=== PATIENT | male | born 1970 | race Caucasian/White ===

== ENCOUNTER 2021-03-09 00:18 | Emergency (ER) | payer OTHER, SELFPAY ==
[2021-03-09 00:26] VITALS: BP 170/110; PULSE 100; RESP 20; TEMP 37.2; O2SAT 96; BMI 35.2
--- NOTE | 2021-03-09 00:47 | ED.PSYCH ---
HPI - Psych General Chief Complaint: Psychiatric Symptoms Stated Complaint: psychiatric episode Time Seen by Provider: 03/09/21 00:39 Source: patient Mode of arrival: ambulatory Limitations: no limitations History of Present Illness HPI Narrative: Patient has a bipolar disorder on Depakote Lamictal Atarax and Seroquel. Four days ago patient has sore throat and started on clindamycin patient very nervous and anxious because he thinks clindamycin been metabolized by liver and competing with other medications. At this time patient denies any sore throat or fever MD complaint: anxiety Related Data Allergies Allergy/AdvReac Type Severity Reaction Status Date / Time No Known Allergies Allergy Verified 03/09/21 00:26 [No Known Allergies*] Review of Systems Review of Systems: Constitutional : No Weight loss, No Fever, No Chills ENT/Mouth : No sore throat, No Rhinorrhea Eyes: No Eye Pain, No Swelling Cardiovascular : No Chest Pain, no palpitations Respiratory : No Cough, No Sputum, no shortness of breath Gastrointestinal : no Nausea, No Vomiting, No Diarrhea, No abdominal Pain, no black stools Genitourinary : No Dysuria, No Urinary Frequency Musculoskeletal : No joint pain, No Myalgias, No Joint Swelling Skin : No Skin Lesions, No rash Neuro : No Weakness, No Numbness, No Dizziness, No Headache Psych : +Anxiety/Panic, No Depression Heme/Lymph: No Bruising, No Lymphadenopathy Endocrine : No Polyuria, No Polydipsia All other systems reviewed and are negative REPLACED BY [facility] Social History Social History Advance Directives: No Physical Exam Vital Signs: Vital Signs: Last Vital Signs Temp 99.0 F 03/09/21 00:26 Pulse 100 03/09/21 00:26 Resp 20 03/09/21 00:26 BP 170/110 H 03/09/21 00:26 Pulse Ox 96 03/09/21 00:26 Body Mass Index 35.2 Appearance: Alert. Oriented X3. No acute distress. Anxious Eyes: PERRLA, No Nystagmus ENT: Pharynx normal. Oral Mucosa moist Neck: Normal inspection. Neck supple. CVS: Normal heart rate and rhythm. Pulses normal. Respiratory: No respiratory distress. Equal air entry bilateral, no wheezing/rales/rhonchi Abdomen: Soft and nontender. Bowel sounds are present, no mass palpable, no CVA tenderness Skin: Skin warm and dry. Normal skin color. Normal skin turgor. Extremities: No lower extremity edema. No calf tenderness Neuro: Oriented X 3. No motor deficit. No sensory deficit.No cerebellar signs , cranial nerves II-XII intact MDM - Psych MDM Narrative Medical decision making narrative: Patient with anxiety no sore throat on clinical exam patient reassured to take his medication feels safe to go home does not want any new medication Discharge Plan Discharge Clinical Impression: Anxiety Patient Disposition: Home, Self-Care Instructions: Anxiety (ED) Additional Instructions: Rest at home Stop clindamycin Take medication as prescribed by your psychiatrist
== END 2021-03-09 01:45 | disposition home or self-care (01) ==
LOC: HO.ED 01:10
PROVIDERS: Emergency Provider Internal Medicine
DX: F41.9 Anxiety disorder, unspecified (principal); F31.9 Bipolar disorder, unspecified; Z79.899 Other long term (current) drug therapy
CPT/HCPCS: 99282; 99283

== ENCOUNTER 2021-09-05 11:39 | Emergency (ER) | payer OTHER, SELFPAY ==
[2021-09-05 11:49] VITALS: BP 152/97; PULSE 83; RESP 16; TEMP 37.1; O2SAT 97; BMI 30.5
--- NOTE | 2021-09-05 11:56 | ED_ITS ---
HPI - Psych General Chief Complaint: Psychiatric Symptoms <ISAIAS Nunez - Last Filed: 09/05/21 15:51> Stated Complaint: crisis <ISAIAS Nunez - Last Filed: 09/05/21 15:51> Time Seen by Provider: 09/05/21 11:46 <ISAIAS Nunez - Last Filed: 09/05/21 15:51> Source: patient <ISAIAS Nunez - Last Filed: 09/05/21 15:51> Mode of arrival: ambulatory <ISAIAS Nunez Last Filed: 09/05/21 15:51> Limitations: no limitations <ISAIAS Nunez Last Filed: 09/05/21 15:51> History of Present Illness HPI Narrative: 50 year old male past medical history significant for anxiety, schizoaffective disorder, alcohol abuse disorder bipolar I disorder on Depakote, Lamictal, and atarax presents to the emergency department for co mplaints of depression and suicidal ideation progressively worsening over the past week. According to patient he was recently at [facility] and discharged on August 23, he was admitted initially for an episode of vandana, which patient states was really bad. He states that since his discharge he has been feeling bad about his hospitalization, he states he is embarrassed about the way he acted, and he can not believe some of the things he said ended. He states that for this reason he has been feeling increased depression, and has been feeling suicidal, which is never fell in his life. He states that his plan is to cut his wrists, and bleed to . He has no suicide attempts in the past. He states that he recently had a med change, where they stopped his seroquel, he states this has been making things worse. He also states that his primary psychiatrist changed the times of which he takes his medications. He feels like since he stopped taking Seroquel he has been having obsessive and compulsive behavior, he states that he is unable to transition into different topics. He also mentions that he has been having tactile hallucinations, at times he feels as though there are bugs crawling up his arms. He also mentions difficulty sleeping at night. He denies visual, auditory hallucinations. He states he lives at home with his . He is not homicidal. He denies pain at this time, he states at times when his anxiety is bad he has chest pain, but he is not having any at this time. He offers no other complaints. He denies chest pain, shortness of breath, fevers, chills, recent sick contacts, nausea, vomiting, abdominal pain. He denies alcohol, drug and tobacco use. <ISAIAS Nunez - Last Filed: 09/05/21 15:51> MD complaint: suicidal ideation, feels depressed and anxiety <ISAIAS Nunez Last Filed: 09/05/21 15:51> Duration: constant <ISAIAS Nunez - Last Filed: 09/05/21 15:51> History of same: Yes <ISAIAS Nunez - Last Filed: 09/05/21 15:51> Relieving factors: none <ISAIAS Nunez Last Filed: 09/05/21 15:51> Exacerbating factors: none <ISAIAS Nunez - Last Filed: 09/05/21 15:51> Associated psychiatric symptoms: depression and suicidal ideation <ISAIAS Nunez Last Filed: 09/05/21 15:51> Treatments prior to arrival: none <ISAIAS Nunez Last Filed: 09/05/21 15:51> If self harm: admits thoughts of self harm and has plan (cut wrist and bleed to ) <ISAIAS Nunez Last Filed: 09/05/21 15:51> Related Data Home Medications: Home Medications Medication Instructions Recorded Confirmed divalproex 500 mg tablet,extended 2 tab PO BEDTIME 09/05/21 09/05/21 release 24 hr (Depakote ER) folic acid 1 mg tablet 1 mg PO DAILY 09/05/21 09/05/21 lamotrigine 150 mg tablet 1 tab PO DAILY 09/05/21 09/05/21 (Lamictal) lorazepam 1 mg tablet (Ativan) 1 tab PO TID PRN 09/05/21 09/05/21 quetiapine 300 mg tablet,extended 1 tab PO BEDTIME 09/05/21 09/05/21 release 24 hr (Seroquel XR) thiamine HCl (vitamin B1) 100 mg 100 mg PO DAILY 09/05/21 09/05/21 tablet <ISAIAS Nunez Last Filed: 09/05/21 15:51> Allergies/Adverse Reactions: Allergies Allergy/AdvReac Type Severity Reaction Status Date / Time No Known Allergies Allergy Verified 03/09/21 00:26 [No Known Allergies*] <ISAIAS Nunez Last Filed: 09/05/21 15:51> Review of Systems Review of Systems: Constitutional : No Fever, No Chills ENT/Mouth : No Ear Pain, No Nasal Congestion, No sore throat Eyes: No Eye Pain, No Swelling, No Redness Cardiovascular : No Chest Pain, No SOB Respiratory : No Cough, No Sputum, No Dyspnea Gastrointestinal : No Nausea, No Vomiting, No Diarrhea, No Hematochezia, No Melena Genitourinary : No Dysuria, No Urinary Frequency, No Hematuria Musculoskeletal : No Myalgias Skin : No Skin Lesions, No rash Neuro : No Weakness, No Numbness, No Paresthesias, No Dizziness, No Headache Psych : positive Anxiety, positive Depression, positive SI, No HI Heme/Lymph: No Lymphadenopathy Endocrine : No Polyuria, No Polydipsia All other systems reviewed and are negative <ISAIAS Nunez Last Filed: 09/05/21 15:51> [facility] Past Medical History Attestation statement: The following information was validated with the patient. <ISAIAS Nunez Last Filed: 09/05/21 15:51> Source: old records reviewed and nursing notes reviewed <ISAIAS Nunez Last Filed: 09/05/21 15:51> Social History Social History: Social History Smoked in Last 30 Days: No Use of substances other than those prescribed or required for medical reasons: No Advance Directives: No <ISAIAS Nunez Last Filed: 09/05/21 15:51> Physical Exam Vital Signs: Vital Signs: Last Vital Signs Temp 97.9 F 09/06/21 04:45 Pulse 80 09/06/21 04:45 Resp 18 09/06/21 04:45 BP 128/76 09/06/21 04:45 Pulse Ox 97 09/06/21 04:45 Body Mass Index 30.5 <ISAIAS Nunez - Last Filed: 09/05/21 15:51> Vital Signs: Last Vital Signs Temp 97.9 F 09/06/21 04:45 Pulse 80 09/06/21 04:45 Resp 18 09/06/21 04:45 BP 128/76 09/06/21 04:45 Pulse Ox 97 09/06/21 04:45 Body Mass Index 30.5 <Antonio Palmer MD - Last Filed: 09/05/21 12:25> Vital Signs: Last Vital Signs Temp 97.9 F 09/06/21 04:45 Pulse 80 09/06/21 04:45 Resp 18 09/06/21 04:45 BP 128/76 09/06/21 04:45 Pulse Ox 97 09/06/21 04:45 Body Mass Index 30.5 <ISAIAS Leiva - Last Filed: 09/06/21 09:24> Appearance: Alert. Oriented X3. No acute distress. ? No accessory muscle use Head: Normal external exam. Normocephalic. Atraumatic. ? Eyes: PERRLA. EOMI. Conjunctiva and sclera normal. Eyelids normal. ? ENT: Pharynx normal. Uvula midline. Moist mucous membranes. ? No trismus noted.? No drooling noted.? No muffled voice noted. Neck: ?Soft full range of motion, no JVD CVS: ?Heart regular rate and rhythm no murmurs and rubs Respiratory: ?Breath sounds are clear to auscultation bilaterally. No wheezing or stridor.? No accessory muscle use noted. Abdomen: ?Soft nontender no rebound or guarding positive bowel sounds Skin: Skin warm and dry.? Normal skin color.? Normal skin turgor. No rashes/lesions/lacerations noted. Extremities: No lower extremity edema. ? Extremities exhibit normal range of motion.? Extremities nontender. Neuro: Oriented X 3.? No motor deficit.? No sensory deficit.? Reflexes normal. CN2 -12 intact. <ISAIAS Nunez - Last Filed: 09/05/21 15:51> Course Reevaluation(s) Reevaluation #1: discussed history and plan with the PA <Antonio Palmer MD - Last Filed: 09/05/21 12:25> Time: 12:25 <Antonio Palmer MD - Last Filed: 09/05/21 12:25> Reevaluation #2: CBC reveals no abnormalities. BUN and creatinine and elevated, appears to be patient's baseline, no acute changes. COVID negative. Acetaminophen, salicylates negative. Urine pending. Care team states that BHN on way to evaluate the patient. <ISAIAS Nunez - Last Filed: 09/05/21 15:51> Time: 13:08 <ISAIAS Nunez - Last Filed: 09/05/21 15:51> Reevaluation #3: Urine tox + for cocaine. [facility]N at the bedside. Patient is medically cleared at this time. Physician observation started at 1351.? Patient placed in physician observation because the patient needed more time for BHN evaluation and inpatient placemen t.? At the time observation was started the patient's vitals were stable, patient is alert and oriented and cooperative, Neuro: nonfocal, CV RRR, Lungs clear. <ISAIAS Nunez - Last Filed: 09/05/21 15:51> Time: 13:51 <ISAIAS Nunez - Last Filed: 09/05/21 15:51> Additional Reevaluation(s): 09/06/21922--Physician observation continued. Vital signs are stable. Labs reviewed. Patient remains [facility] inpatient bed search, no complaints overnight <ISAIAS Leiva - Last Filed: 09/06/21 09:24> MDM - Psych MDM Narrative Medical decision making narrative: [id number] 50 year old male pmhx significant for anxiety, schizoaffective disorder and bipolar I disorder on Depakote, Lamictal, and Atarax presents to the emergency department for complaints of depression, suicidal ideation w/ plan to cut wrist, tactile hallucinations, repetitive and compulsive behavior progressively wors ening for a week. He states that his recently seen at [facility] discharged on August 23, 2021. He states that upon discharge they instructed him to stop taking his Seroquel, and he feels like this has not helped him. He states he feels as though he is getting worse. Denies visual and auditory hallucinations. Denies drug, alcohol and tobacco use. Not HI. Mother at the bedside. To know he was at [facility] from August 09 to August 23, 2021 for vandana and psychosis. Upon physical examination patient is well groomed, calm, cooperative speaking in full sentences. He is making sense and able to answer questions appropriately. Lungs are clear to auscultation. S1 and S2 are appreciated for murmurs. Abdomen is soft nontender nondistended. Pupils equal round and reactive to light, free of nystagmus. Extraocular movements intact. Reflexes 2+ equal in bilateral upper and lower extremities. 5/5 strength upper and lower extremities. Cranial nerves 2-12 intact. Plan at this time is to obtain basic labs, urine, covid and ETOH. A care team consult will also be put in. <ISAIAS Nunez - Last Filed: 09/05/21 15:51> Lab Data Result diagrams: : 09/05/21 12:31 09/05/21 12:31 <ISAIAS Nunez - Last Filed: 09/05/21 15:51> Labs: Lab Results 09/05/21 09/05/21 09/05/21 Range/Units 12:30 12:31 12:31 WBC 7.5 (4.8-10.8) X10*3/uL RBC 5.60 (4.60-5.80) X10*6/uL Hgb 16.0 (14.0-18.0) g/dl Hct 50.6 (42.0-52.0) % MCV 90.4 (80.0-98.0) fL MCH 28.6 (27.0-33.0) pg MCHC 31.6 (31.0-36.0) g/dl RDW 13.8 (11.0-16.0) % Plt Count 199 (160-400) X10*3/uL MPV 9.6 (9.4-12.4) fL Immature Gran % (Auto) 0.4 (0.0-0.4) % Neut % (Auto) 57.9 (45-73) % Lymph % (Auto) 31.4 (20-40) % [place] % (Auto) 6.4 (2-11) % Eos % (Auto) 3.2 (0-4) % Baso % (Auto) 0.7 (0-2) % Lymph # (Auto) 2.4 (1.2-4.9) X10*3/uL [place] # (Auto) 0.5 (0.1-1.2) X10*3/uL Eos # (Auto) 0.2 (0.0-0.4) X10*3/uL Baso # (Auto) 0.1 (0.0-0.2) X10*3/uL Abs Immat Gran (auto) 0.03 (0.00-0.03) X10*3/uL Absolute Neuts (auto) 4.4 (2.0-8.3) x10*3/uL Absolute Nucleated RBC 0.000 (0.0-0.012) X10*3/uL Nucleated RBC % (auto) 0.0 (0.0-0.2) /100WBC Sodium 142 (135-145) mmol/L Potassium 4.6 (3.3-5.1) mmol/L Chloride 106 (96-108) mmol/L Carbon Dioxide 29 (22-29) mmol/L Anion Gap 12 (12-20) BUN 18 H (9-16) mg/dL Creatinine 1.69 H (0.5-1.4) mg/dL Estim Creat Clear Calc 60.2 Estimated GFR 43 Random Glucose 92 (60-115) mg/dL Calcium 9.7 (8.4-10.2) mg/dL Total Bilirubin 0.5 (0.0-1.0) mg/dL AST 14 (5-37) U/L ALT 9 (0-40) U/L Alkaline Phosphatase 64 (39-117) U/L Total Protein 7.2 (6.5-8.0) g/dL Albumin 4.3 (3.5-5.0) g/dL Salicylates (15-30) mg/dL Urine Opiates Screen (Not Detect) Urine Fentanyl Screen (Not Detect) Acetaminophen (<30) mcg/mL Ur Barbiturates Screen (Not Detect) Valproic Acid 62.3 (50.0-100.0) mcg/mL Ur Phencyclidine Scrn (Not Detect) Ur Amphetamines Screen (Not Detect) U Benzodiazepines Scrn (Not Detect) Urine Cocaine Screen (Not Detect) U Marijuana (THC) Screen (Not Detect) Ethyl Alcohol < 10 mg/dL COVID-19 ([facility]) (Negative) COVID-19 Clin Com 09/05/21 09/05/21 09/05/21 Range/Units 12:31 12:32 13:11 WBC (4.8-10.8) X10*3/uL RBC (4.60-5.80) X10*6/uL Hgb (14.0-18.0) g/dl Hct (42.0-52.0) % MCV (80.0-98.0) fL MCH (27.0-33.0) pg MCHC (31.0-36.0) g/dl RDW (11.0-16.0) % Plt Count (160-400) X10*3/uL MPV (9.4-12.4) fL Immature Gran % (Auto) (0.0-0.4) % Neut % (Auto) (45-73) % Lymph % (Auto) (20-40) % [place] % (Auto) (2-11) % Eos % (Auto) (0-4) % Baso % (Auto) (0-2) % Lymph # (Auto) (1.2-4.9) X10*3/uL [place] # (Auto) (0.1-1.2) X10*3/uL Eos # (Auto) (0.0-0.4) X10*3/uL Baso # (Auto) (0.0-0.2) X10*3/uL Abs Immat Gran (auto) (0.00-0.03) X10*3/uL Absolute Neuts (auto) (2.0-8.3) x10*3/uL Absolute Nucleated RBC (0.0-0.012) X10*3/uL Nucleated RBC % (auto) (0.0-0.2) /100WBC Sodium (135-145) mmol/L Potassium (3.3-5.1) mmol/L Chloride (96-108) mmol/L Carbon Dioxide (22-29) mmol/L Anion Gap (12-20) BUN (9-16) mg/dL Creatinine (0.5-1.4) mg/dL Estim Creat Clear Calc Estimated GFR Random Glucose (60-115) mg/dL Calcium (8.4-10.2) mg/dL Total Bilirubin (0.0-1.0) mg/dL AST (5-37) U/L ALT (0-40) U/L Alkaline Phosphatase (39-117) U/L Total Protein (6.5-8.0) g/dL Albumin (3.5-5.0) g/dL Salicylates < 5.0 L (15-30) mg/dL Urine Opiates Screen Not Detected (Not Detect) Urine Fentanyl Screen Not Detected (Not Detect) Acetaminophen < 1 (<30) mcg/mL Ur Barbiturates Screen Not Detected (Not Detect) Valproic Acid (50.0-100.0) mcg/mL Ur Phencyclidine Scrn Not Detected (Not Detect) Ur Amphetamines Screen Not Detected (Not Detect) U Benzodiazepines Scrn Not Detected (Not Detect) Urine Cocaine Screen POSITIVE H (Not Detect) U Marijuana (THC) Screen Not Detected (Not Detect) Ethyl Alcohol mg/dL COVID-19 ([facility]) Negative (Negative) COVID-19 Clin Com See Note <ISAIAS Nunez - Last Filed: 09/05/21 15:51> Lab Results 09/05/21 09/05/21 09/05/21 Range/Units 12:30 12:31 12:31 WBC 7.5 (4.8-10.8) X10*3/uL RBC 5.60 (4.60-5.80) X10*6/uL Hgb 16.0 (14.0-18.0) g/dl Hct 50.6 (42.0-52.0) % MCV 90.4 (80.0-98.0) fL MCH 28.6 (27.0-33.0) pg MCHC 31.6 (31.0-36.0) g/dl RDW 13.8 (11.0-16.0) % Plt Count 199 (160-400) X10*3/uL MPV 9.6 (9.4-12.4) fL Immature Gran % (Auto) 0.4 (0.0-0.4) % Neut % (Auto) 57.9 (45-73) % Lymph % (Auto) 31.4 (20-40) % [place] % (Auto) 6.4 (2-11) % Eos % (Auto) 3.2 (0-4) % Baso % (Auto) 0.7 (0-2) % Lymph # (Auto) 2.4 (1.2-4.9) X10*3/uL [place] # (Auto) 0.5 (0.1-1.2) X10*3/uL Eos # (Auto) 0.2 (0.0-0.4) X10*3/uL Baso # (Auto) 0.1 (0.0-0.2) X10*3/uL Abs Immat Gran (auto) 0.03 (0.00-0.03) X10*3/uL Absolute Neuts (auto) 4.4 (2.0-8.3) x10*3/uL Absolute Nucleated RBC 0.000 (0.0-0.012) X10*3/uL Nucleated RBC % (auto) 0.0 (0.0-0.2) /100WBC Sodium 142 (135-145) mmol/L Potassium 4.6 (3.3-5.1) mmol/L Chloride 106 (96-108) mmol/L Carbon Dioxide 29 (22-29) mmol/L Anion Gap 12 (12-20) BUN 18 H (9-16) mg/dL Creatinine 1.69 H (0.5-1.4) mg/dL Estim Creat Clear Calc 60.2 Estimated GFR 43 Random Glucose 92 (60-115) mg/dL Calcium 9.7 (8.4-10.2) mg/dL Total Bilirubin 0.5 (0.0-1.0) mg/dL AST 14 (5-37) U/L ALT 9 (0-40) U/L Alkaline Phosphatase 64 (39-117) U/L Total Protein 7.2 (6.5-8.0) g/dL Albumin 4.3 (3.5-5.0) g/dL Salicylates (15-30) mg/dL Urine Opiates Screen (Not Detect) Urine Fentanyl Screen (Not Detect) Acetaminophen (<30) mcg/mL Ur Barbiturates Screen (Not Detect) Valproic Acid 62.3 (50.0-100.0) mcg/mL Ur Phencyclidine Scrn (Not Detect) Ur Amphetamines Screen (Not Detect) U Benzodiazepines Scrn (Not Detect) Urine Cocaine Screen (Not Detect) U Marijuana (THC) Screen (Not Detect) Ethyl Alcohol < 10 mg/dL COVID-19 ([facility]) (Negative) COVID-19 Clin Com 09/05/21 09/05/21 09/05/21 Range/Units 12:31 12:32 13:11 WBC (4.8-10.8) X10*3/uL RBC (4.60-5.80) X10*6/uL Hgb (14.0-18.0) g/dl Hct (42.0-52.0) % MCV (80.0-98.0) fL MCH (27.0-33.0) pg MCHC (31.0-36.0) g/dl RDW (11.0-16.0) % Plt Count (160-400) X10*3/uL MPV (9.4-12.4) fL Immature Gran % (Auto) (0.0-0.4) % Neut % (Auto) (45-73) % Lymph % (Auto) (20-40) % [place] % (Auto) (2-11) % Eos % (Auto) (0-4) % Baso % (Auto) (0-2) % Lymph # (Auto) (1.2-4.9) X10*3/uL [place] # (Auto) (0.1-1.2) X10*3/uL Eos # (Auto) (0.0-0.4) X10*3/uL Baso # (Auto) (0.0-0.2) X10*3/uL Abs Immat Gran (auto) (0.00-0.03) X10*3/uL Absolute Neuts (auto) (2.0-8.3) x10*3/uL Absolute Nucleated RBC (0.0-0.012) X10*3/uL Nucleated RBC % (auto) (0.0-0.2) /100WBC Sodium (135-145) mmol/L Potassium (3.3-5.1) mmol/L Chloride (96-108) mmol/L Carbon Dioxide (22-29) mmol/L Anion Gap (12-20) BUN (9-16) mg/dL Creatinine (0.5-1.4) mg/dL Estim Creat Clear Calc Estimated GFR Random Glucose (60-115) mg/dL Calcium (8.4-10.2) mg/dL Total Bilirubin (0.0-1.0) mg/dL AST (5-37) U/L ALT (0-40) U/L Alkaline Phosphatase (39-117) U/L Total Protein (6.5-8.0) g/dL Albumin (3.5-5.0) g/dL Salicylates < 5.0 L (15-30) mg/dL Urine Opiates Screen Not Detected (Not Detect) Urine Fentanyl Screen Not Detected (Not Detect) Acetaminophen < 1 (<30) mcg/mL Ur Barbiturates Screen Not Detected (Not Detect) Valproic Acid (50.0-100.0) mcg/mL Ur Phencyclidine Scrn Not Detected (Not Detect) Ur Amphetamines Screen Not Detected (Not Detect) U Benzodiazepines Scrn Not Detected (Not Detect) Urine Cocaine Screen POSITIVE H (Not Detect) U Marijuana (THC) Screen Not Detected (Not Detect) Ethyl Alcohol mg/dL COVID-19 ([facility]) Negative (Negative) COVID-19 Clin Com See Note <Antonio Palmer MD - Last Filed: 09/05/21 12:25> Lab Results 09/05/21 09/05/21 09/05/21 Range/Units 12:30 12:31 12:31 WBC 7.5 (4.8-10.8) X10*3/uL RBC 5.60 (4.60-5.80) X10*6/uL Hgb 16.0 (14.0-18.0) g/dl Hct 50.6 (42.0-52.0) % MCV 90.4 (80.0-98.0) fL MCH 28.6 (27.0-33.0) pg MCHC 31.6 (31.0-36.0) g/dl RDW 13.8 (11.0-16.0) % Plt Count 199 (160-400) X10*3/uL MPV 9.6 (9.4-12.4) fL Immature Gran % (Auto) 0.4 (0.0-0.4) % Neut % (Auto) 57.9 (45-73) % Lymph % (Auto) 31.4 (20-40) % [place] % (Auto) 6.4 (2-11) % Eos % (Auto) 3.2 (0-4) % Baso % (Auto) 0.7 (0-2) % Lymph # (Auto) 2.4 (1.2-4.9) X10*3/uL [place] # (Auto) 0.5 (0.1-1.2) X10*3/uL Eos # (Auto) 0.2 (0.0-0.4) X10*3/uL Baso # (Auto) 0.1 (0.0-0.2) X10*3/uL Abs Immat Gran (auto) 0.03 (0.00-0.03) X10*3/uL Absolute Neuts (auto) 4.4 (2.0-8.3) x10*3/uL Absolute Nucleated RBC 0.000 (0.0-0.012) X10*3/uL Nucleated RBC % (auto) 0.0 (0.0-0.2) /100WBC Sodium 142 (135-145) mmol/L Potassium 4.6 (3.3-5.1) mmol/L Chloride 106 (96-108) mmol/L Carbon Dioxide 29 (22-29) mmol/L Anion Gap 12 (12-20) BUN 18 H (9-16) mg/dL Creatinine 1.69 H (0.5-1.4) mg/dL Estim Creat Clear Calc 60.2 Estimated GFR 43 Random Glucose 92 (60-115) mg/dL Calcium 9.7 (8.4-10.2) mg/dL Total Bilirubin 0.5 (0.0-1.0) mg/dL AST 14 (5-37) U/L ALT 9 (0-40) U/L Alkaline Phosphatase 64 (39-117) U/L Total Protein 7.2 (6.5-8.0) g/dL Albumin 4.3 (3.5-5.0) g/dL Salicylates (15-30) mg/dL Urine Opiates Screen (Not Detect) Urine Fentanyl Screen (Not Detect) Acetaminophen (<30) mcg/mL Ur Barbiturates Screen (Not Detect) Valproic Acid 62.3 (50.0-100.0) mcg/mL Ur Phencyclidine Scrn (Not Detect) Ur Amphetamines Screen (Not Detect) U Benzodiazepines Scrn (Not Detect) Urine Cocaine Screen (Not Detect) U Marijuana (THC) Screen (Not Detect) Ethyl Alcohol < 10 mg/dL COVID-19 ([facility]) (Negative) COVID-19 Clin Com 09/05/21 09/05/21 09/05/21 Range/Units 12:31 12:32 13:11 WBC (4.8-10.8) X10*3/uL RBC (4.60-5.80) X10*6/uL Hgb (14.0-18.0) g/dl Hct (42.0-52.0) % MCV (80.0-98.0) fL MCH (27.0-33.0) pg MCHC (31.0-36.0) g/dl RDW (11.0-16.0) % Plt Count (160-400) X10*3/uL MPV (9.4-12.4) fL Immature Gran % (Auto) (0.0-0.4) % Neut % (Auto) (45-73) % Lymph % (Auto) (20-40) % [place] % (Auto) (2-11) % Eos % (Auto) (0-4) % Baso % (Auto) (0-2) % Lymph # (Auto) (1.2-4.9) X10*3/uL [place] # (Auto) (0.1-1.2) X10*3/uL Eos # (Auto) (0.0-0.4) X10*3/uL Baso # (Auto) (0.0-0.2) X10*3/uL Abs Immat Gran (auto) (0.00-0.03) X10*3/uL Absolute Neuts (auto) (2.0-8.3) x10*3/uL Absolute Nucleated RBC (0.0-0.012) X10*3/uL Nucleated RBC % (auto) (0.0-0.2) /100WBC Sodium (135-145) mmol/L Potassium (3.3-5.1) mmol/L Chloride (96-108) mmol/L Carbon Dioxide (22-29) mmol/L Anion Gap (12-20) BUN (9-16) mg/dL Creatinine (0.5-1.4) mg/dL Estim Creat Clear Calc Estimated GFR Random Glucose (60-115) mg/dL Calcium (8.4-10.2) mg/dL Total Bilirubin (0.0-1.0) mg/dL AST (5-37) U/L ALT (0-40) U/L Alkaline Phosphatase (39-117) U/L Total Protein (6.5-8.0) g/dL Albumin (3.5-5.0) g/dL Salicylates < 5.0 L (15-30) mg/dL Urine Opiates Screen Not Detected (Not Detect) Urine Fentanyl Screen Not Detected (Not Detect) Acetaminophen < 1 (<30) mcg/mL Ur Barbiturates Screen Not Detected (Not Detect) Valproic Acid (50.0-100.0) mcg/mL Ur Phencyclidine Scrn Not Detected (Not Detect) Ur Amphetamines Screen Not Detected (Not Detect) U Benzodiazepines Scrn Not Detected (Not Detect) Urine Cocaine Screen POSITIVE H (Not Detect) U Marijuana (THC) Screen Not Detected (Not Detect) Ethyl Alcohol mg/dL COVID-19 ([facility]) Negative (Negative) COVID-19 Clin Com See Note <ISAIAS Leiva - Last Filed: 09/06/21 09:24> Discharge Plan Discharge Clinical Impression: Depression, Bipolar disorder, Schizoaffective disorder <ISAIAS Nunez - Last Filed: 09/05/21 15:51> Prescriptions: No Action lamotrigine [Lamictal] 150 mg tablet 1 tab PO DAILY RF: 0 thiamine HCl (vitamin B1) 100 mg Tablet 100 mg PO DAILY RF: 0 divalproex [Depakote ER] 500 mg tablet extended release 24 hr 2 tab PO BEDTIME RF: 0 folic acid 1 mg Tablet 1 mg PO DAILY RF: 0 lorazepam [Ativan] 1 mg tablet 1 tab PO TID PRN (Reason: anxiety) RF: 0 quetiapine [Seroquel XR] 300 mg tablet extended release 24 hr 1 tab PO BEDTIME RF: 0 <ISAIAS Nunez - Last Filed: 09/05/21 15:51>
[2021-09-05 12:35] LABS: MANUAL DIFF FLAG NO
[2021-09-05 12:36] LABS: Basophils Absolute Auto 0.1 X10*3/uL (0.0-0.2); Basophils Percent Auto 0.7 % (0-2); Eosinophils Absolute Auto 0.2 X10*3/uL (0.0-0.4); Eosinophils Percent Auto 3.2 % (0-4); Hematocrit 50.6 % (42.0-52.0); Imm Gran Abs Auto 0.03 X10*3/uL (0.00-0.03); Imm Gran Pct Auto 0.4 % (0.0-0.4); Lymphocytes Absolute Auto 2.4 X10*3/uL (1.2-4.9); Lymphocytes Percent Auto 31.4 % (20-40); Mean Corpuscular HGB Conc 31.6 g/dl (31.0-36.0); Mean Corpuscular Hemoglobin 28.6 pg (27.0-33.0); Mean Corpuscular Volume 90.4 fL (80.0-98.0); Mean Platelet Volume 9.6 fL (9.4-12.4); Monocytes Absolute Auto 0.5 X10*3/uL (0.1-1.2); Monocytes Percent Auto 6.4 % (2-11); Neutrophils Absolute Auto 4.4 x10*3/uL (2.0-8.3); Neutrophils Percent Auto 57.9 % (45-73); Platelet Count 199 X10*3/uL (160-400); Red Cell Distribution Width 13.8 % (11.0-16.0); White Blood Count 7.5 X10*3/uL (4.8-10.8)
[2021-09-05 12:49] LABS: Ethanol < 10 mg/dL
[2021-09-05 12:53] LABS: Alanine Aminotransferase 9 U/L (0-40); Albumin Level 4.3 g/dL (3.5-5.0); Alkaline Phosphatase 64 U/L (39-117); Anion Gap 12 (12-20); Aspartate Amino Transferase 14 U/L (5-37); Bilirubin Total 0.5 mg/dL (0.0-1.0); Blood Urea Nitrogen 18 mg/dL (9-16); Calcium 9.7 mg/dL (8.4-10.2); Carbon Dioxide 29 mmol/L (22-29); Chloride 106 mmol/L (96-108); Creatinine Clr Calc Pharmacy 60.2; Estimated Glomerular Filt Rate 43; Glucose Random 92 mg/dL (60-115); Potassium 4.6 mmol/L (3.3-5.1); Sodium 142 mmol/L (135-145); Total Protein 7.2 g/dL (6.5-8.0)
[2021-09-05 12:55] LABS: COVID-19 Test Negative (Negative); IDNOW Serial# 9DD0AD1C
[2021-09-05 12:55] LABS: Salicylate < 5.0 mg/dL (15-30)
[2021-09-05 13:07] LABS: Acetaminophen LAB < 1 mcg/mL (<30)
[2021-09-05 13:31] LABS: Amphetamine Screen Urine Not Detected (Not Detect); Barbiturates, Urine Not Detected (Not Detect); Benzodiazepines Screen Urine Not Detected (Not Detect); Cannabinoid Screen Urine Not Detected (Not Detect); Cocaine Screen Urine POSITIVE (Not Detect); Fentanyl, urine Not Detected (Not Detect); Opiate Screen Urine Not Detected (Not Detect); Phencyclidine Screen Urine Not Detected (Not Detect)
[2021-09-05] MEDS: LORazepam 1 MG TABLET PO (18:16)
[2021-09-05 19:20] LABS: Valproate 62.3 mcg/mL (50.0-100.0)
[2021-09-05] MEDS: Divalproex Sodium ER 500 MG TAB.ER.24H 1000 MG PO (21:23)
[2021-09-05] MEDS: QUEtiapine Fumarate 50 MG TABLET 150 MG PO (21:24)
--- NOTE | 2021-09-06 | ECG_ITS ---
Test Reason : med clearance Blood Pressure : / mmHG Vent. Rate : 072 BPM Atrial Rate : 072 BPM P-R Int : 162 ms QRS Dur : 100 ms QT Int : 378 ms P-R-T Axes : 063 072 037 degrees QTc Int : 413 ms Normal sinus rhythm Normal ECG When compared with ECG of 28-FEB-2020 09:23, Nonspecific T wave abnormality no longer evident in Lateral leads QT has shortened Referred By: Keiry Nuno Electronically Signed By:KYREE ARCINIEGA MD
[2021-09-06 04:45] VITALS: BP 128/76; PULSE 80; RESP 18; TEMP 36.6; O2SAT 97
--- NOTE | 2021-09-06 06:38 | PC.NURSE ---
Patient slept through the night, no distress observed/reported, medication compliant, behavior appropriate, expresses need well, disposition per [facility] is section 12 inpatient bed search, VSS, appetite good, elimination intact, contracted for the safety, will continue to monitor.
--- NOTE | 2021-09-06 07:20 | PC.NURSE ---
patient appears to remain asleep at present, respirations are even and unlabored, patient appears in no distress
[2021-09-06] MEDS: lamoTRIgine 100 MG TABLET 150 MG PO (10:09)
[2021-09-06] MEDS: Folic Acid 1 MG TABLET PO (10:09)
[2021-09-06] MEDS: Thiamine HCL 100 MG TABLET PO (10:09)
[2021-09-06 10:12] VITALS: BP 109/62; PULSE 67; RESP 16; TEMP 37.1; O2SAT 98
--- NOTE | 2021-09-06 14:09 | PC.NURSE ---
client receives visit from .
--- NOTE | 2021-09-06 14:16 | PC.NURSE ---
clients asks us to take another set of vitals as hes feeling discomfort will offer client medicine
--- NOTE | 2021-09-06 18:22 | PC.NURSE ---
SMART SHEET SENT TO [facility]
[2021-09-06] MEDS: QUEtiapine Fumarate 50 MG TABLET 150 MG PO (20:14)
[2021-09-06] MEDS: LORazepam 1 MG TABLET PO (20:14)
[2021-09-06] MEDS: Divalproex Sodium ER 500 MG TAB.ER.24H 1000 MG PO (20:33)
[2021-09-06 21:25] VITALS: BP 123/78; PULSE 62; RESP 14; TEMP 36.8; O2SAT 96
[2021-09-07 04:20] VITALS: BP 126/74; PULSE 60; RESP 16; TEMP 36.7; O2SAT 98
--- NOTE | 2021-09-07 05:05 | PC.NURSE ---
Patient slept little over 4 hours, calm and quiet sitting in hallway socializing with staff member, no distress observed/reported, patient was little unhappy over his lamictal order which was changed at the time discharge from [facility], but later clamed down and reported he is feeling better and asked can he be discharged, patient was informed that since inpatient disposition was decided by [facility], N needs to clear up and patient agreed to wait for [facility] for MSU. Behavior appropriate, medication compliant, VSS, mood pleasant at this time, disposition per [facility] is section 12 inpatient bed search, will continue to monitor.
[2021-09-07] MEDS: QUEtiapine Fumarate 50 MG TABLET 150 MG PO (07:53)
[2021-09-07] MEDS: Folic Acid 1 MG TABLET PO (07:53)
[2021-09-07] MEDS: Thiamine HCL 100 MG TABLET PO (07:54)
[2021-09-07] MEDS: lamoTRIgine 100 MG TABLET 150 MG PO (07:54)
--- NOTE | 2021-09-07 08:55 | PC.NURSE ---
Since this RN arrival at 7am pt has been ambulatory in the department, interactive with staff, patient, able to state needs, taking meds as ordered. Pt states he's feeling much better as compared to yesterday and that he doesn't want to be waiting in ED or even on an inpatient unit through the weekend. He feels well enough to go home and has a therapy appointment for next week. Pt aware that N will conduct an MSU today and that a change in plans can be discussed. His mother called to inform this RN that letting him go would be a mistake . Pt currently resting quietly in room.
--- NOTE | 2021-09-07 12:06 | PC.NURSE ---
patiently awaiting BHN. no complaints at this time.
--- NOTE | 2021-09-07 13:30 | PC.NURSE ---
Rn to Rn pedro [facility] at [place] in [facility]
--- NOTE | 2021-09-07 15:15 | PC.NURSE ---
ambulance booked for 7:30pm to [place]
--- NOTE | 2021-09-07 15:50 | PC.NURSE ---
Resting queitly in bed. Has been calm and cooperative all day. Mother present for visit. Aware of plan for transfer to [place] aprox 7:30pm
[2021-09-07 16:15] VITALS: BP 114/64; PULSE 67; RESP 18; TEMP 36.8; O2SAT 95
== END 2021-09-07 20:17 ==
PROVIDERS: Physician Assistant; Emergency Provider Emergency Medicine; PCP Internal Medicine
DX: F32.A Depression, unspecified (principal); F25.0 Schizoaffective disorder, bipolar type; R45.851 Suicidal ideations; F42.9 Obsessive-compulsive disorder, unspecified; F41.9 Anxiety disorder, unspecified; F10.10 Alcohol abuse, uncomplicated; F14.90 Cocaine use, unspecified, uncomplicated; Z79.899 Other long term (current) drug therapy; Z20.822 Contact with and (suspected) exposure to COVID-19
CPT/HCPCS: 36415; 80053; 80143; 80164; 80179; 80307; 82077; 85025; 87635; 93005; 99285

== ENCOUNTER 2022-08-03 18:47 | Inpatient (IN) | payer MEDICARE, SELFPAY ==
[2022-08-03 19:24] VITALS: BP 176/97; PULSE 93; RESP 16; TEMP 36.8; O2SAT 98; BMI 30.1
[2022-08-03 20:25] LABS: Appearance Urine Clear; Color Urine Yellow; Glucose Urine UA Negative (Negative); Leukocyte Esterase Urine Trace (Negative); Nitrite Urine Negative (Negative); Specific Gravity - Urine 1.015 (1.005-1.025); UMIC TRIGGER UACC YES; Urine Blood Trace (Negative); Urine Ketones Trace mg/dL (Negative); Urine Protein Negative (Neg-Trace)
--- NOTE | 2022-08-03 20:26 | ED_ITS ---
HPI - Psych General Chief Complaint: Psychiatric Symptoms Stated Complaint: Crisis eval Time Seen by Provider: 08/03/22 19:47 Source: patient Mode of arrival: ambulatory Limitations: no limitations History of Present Illness HPI Narrative: This is a 51-year-old male history of bipolar disorder coming in the emergency department from home with his parents were concerned that patient has been acting paranoid at home and with delusions of contamination. According to parents patient has left the multiple times over the past week and has displayed erratic behaviors, so much to the ones that he displays when he is having an acute psychotic episode. Patient tells me he is fine, denies any complaints at this moment but tells me he fluctuates between anxious and depressed. Denies SI, HI. Denies visual, auditory and tactile hallucinations. Denies drugs, alcohol and tobacco. Upon history taking patient, and cooperative with no acute distress. Related Data Home Medications Medication Instructions Recorded Confirmed folic acid 1 mg tablet 1 mg PO DAILY 09/05/21 09/05/21 lorazepam 1 mg tablet (Ativan) 1 tab PO TID PRN anxiety 09/05/21 09/05/21 thiamine HCl (vitamin B1) 100 mg 100 mg PO DAILY 09/05/21 09/05/21 tablet divalproex 500 mg tablet,extended 2 tab PO BEDTIME 08/03/22 08/03/22 release 24 hr (Depakote ER) lamotrigine 200 mg tablet 1 tab PO BID 08/03/22 08/03/22 (Lamictal) lorazepam 1 mg tablet (Ativan) 1 tab PO TID PRN anxiety 08/03/22 08/03/22 quetiapine 300 mg tablet,extended 1 tab PO BEDTIME 08/03/22 08/03/22 release 24 hr (Seroquel XR) Allergies Allergy/AdvReac Type Severity Reaction Status Date / Time haloperidol [From Haldol] AdvReac Vomiting Verified 08/03/22 19:32 Review of Systems Review of Systems: Constitutional : No Weight loss, No Fever, No Chills, No Fatigue, No Malaise ENT/Mouth : No sore throat, No Rhinorrhea Eyes: No Eye Pain, No Swelling, No Redness Cardiovascular : No Chest Pain, No SOB, No Dyspnea on Exertion, No Orthopnea, No Edema, No Palpitations Respiratory : No Cough, No Sputum, No Wheezing Gastrointestinal : No Nausea, No Vomiting, No Diarrhea, No Constipation, No abdominal Pain, No Hematochezia, No Melena Genitourinary : No Dysuria, No Urinary Frequency, No Hematuria, Musculoskeletal : No joint pain, No Myalgias, No Joint Swelling Skin : No Skin Lesions, No rash Neuro : No Weakness, No Numbness, No Dizziness, No Headache Psych : No Anxiety/Panic, No Depression, No SI/HI All other systems reviewed and are negative Yes all other systems are reviewed and are negative [facility] Past Medical History Attestation statement: The following information was validated with the patient. Source: old records reviewed and nursing notes reviewed Social History Social History Advance Directives: No Advance Directives Information Provided: No Physical Exam Vital Signs: Vital Signs: Last Vital Signs Temp 98.2 F 08/03/22 19:24 Pulse 93 08/03/22 19:24 Resp 16 08/03/22 19:24 BP 176/97 H 08/03/22 19:24 Pulse Ox 98 08/03/22 19:24 O2 Del Method 08/03/22 19:24 BMI result Body Mass Index 30.1 vss Appearance: Alert.? Oriented X3.? No acute distress.? Head: Normocephalic, atraumatic, no step-offs or deformities Eyes: Pupils equal, round and reactive to light.? ENT: Pharynx normal.? Neck: Normal inspection.? Neck supple.? CVS: Normal heart rate and rhythm.? Pulses normal.? Respiratory: No respiratory distress.? Breath sounds normal.? Abdomen: Soft and nontender.? Skin: Skin warm and dry.? Normal skin color.? Normal skin turgor.? Extremities: No lower extremity edema.? No calf ttp. 5/5 strength to bilateral upper and lower extremities Neuro: Oriented X 3.? No motor deficit.? No sensory deficit. CN 2-12 intact Course Reevaluation(s) Reevaluation #1: CBC with slight leukocytosis, however likely reactive patient without medical complaints. CBC appears to be at [facility] with elevated BUN and CR, patient t olerating PO fluids and making urine. Urine clean. Tox negative, ethanol negative. Valproic acid low home meds will be reconciled. COVID negative. At this time patient will be placed in physician observation to allow more time to be evaluated by the behavioral health team at time observation was started patient common cooperative no acute distress will continue to monitor. Time: 21:08 MDM - Psych MDM Narrative Medical decision making narrative: 2000 51 year old male's brought into the emergency department for paranoid behaviors at over the past week worsening. Physical exam benign. Likely bipolar disorder versus schizophrenia. Plan at this time is medical clearance and evaluation by the behavioral health team. Medical Records Attestation: I reviewed the patient's medical records. Lab Data Attestation: I reviewed the patient's lab results. Result diagrams: 08/03/22 20:31 08/03/22 20:31 Labs: Lab Results 08/03/22 08/03/22 08/03/22 Range/Units 20:15 20:15 20:15 WBC (4.8-10.8) X10*3/uL RBC (4.60-5.80) X10*6/uL Hgb (14.0-18.0) g/dl Hct (42.0-52.0) % MCV (80.0-98.0) fL MCH (27.0-33.0) pg MCHC (31.0-36.0) g/dl RDW (11.0-16.0) % Plt Count (160-400) X10*3/uL MPV (9.4-12.4) fL Immature Gran % (Auto) (0.0-0.4) % Neut % (Auto) (45-73) % Lymph % (Auto) (20-40) % [place] % (Auto) (2-11) % Eos % (Auto) (0-4) % Baso % (Auto) (0-2) % Lymph # (Auto) (1.2-4.9) X10*3/uL [place] # (Auto) (0.1-1.2) X10*3/uL Eos # (Auto) (0.0-0.4) X10*3/uL Baso # (Auto) (0.0-0.2) X10*3/uL Abs Immat Gran (auto) (0.00-0.03) X10*3/uL Absolute Neuts (auto) (2.0-8.3) x10*3/uL Absolute Nucleated RBC (0.0-0.012) X10*3/uL Nucleated RBC % (auto) (0.0-0.2) /100WBC Sodium (135-145) mmol/L Potassium (3.3-5.1) mmol/L Chloride (96-108) mmol/L Carbon Dioxide (22-29) mmol/L Anion Gap (12-20) BUN (9-16) mg/dL Creatinine (0.5-1.4) mg/dL Estim Creat Clear Calc Estimated GFR Random Glucose (60-115) mg/dL Calcium (8.4-10.2) mg/dL Magnesium (1.6-2.6) mg/dL Total Bilirubin (0.0-1.0) mg/dL AST (5-37) U/L ALT (0-40) U/L Alkaline Phosphatase (39-117) U/L Total Protein (6.5-8.0) g/dL Albumin (3.5-5.0) g/dL Urine Color Yellow Urine Appearance Clear Urine pH 6.0 (5.0-9.0) Ur Specific [place] 1.015 (1.005-1.025) Urine Protein Negative (Neg-Trace) mg/dL Urine Glucose (UA) Negative (Negative) mg/dL Urine Ketones Trace (Negative) mg/dL Urine Blood Trace H (Negative) Urine Nitrite Negative (Negative) Ur Leukocyte Esterase Trace H (Negative) Urine RBC 0-2 (0-2) /HPF Urine WBC 0-5 (0-5) /HPF Ur Squamous Epith Cells 0-2 (0-2) /HPF Urine Bacteria None Seen (None Seen) Hyaline Casts 0-2 (0-2) /LPF Urine Opiates Screen Not Detected (Not Detect) Urine Fentanyl Screen Not Detected (Not Detect) Ur Barbiturates Screen Not Detected (Not Detect) Valproic Acid (50.0-100.0) mcg/mL Ur Phencyclidine Scrn Not Detected (Not Detect) Ur Amphetamines Screen Not Detected (Not Detect) U Benzodiazepines Scrn Not Detected (Not Detect) Urine Cocaine Screen Not Detected (Not Detect) U Marijuana (THC) Screen Not Detected (Not Detect) Ethyl Alcohol mg/dL COVID-19 (MAURICIO) Negative (Negative) COVID-19 Clin Com See Note 08/03/22 08/03/22 08/03/22 Range/Units 20:31 20:31 20:31 WBC 13.3 H (4.8-10.8) X10*3/uL RBC 5.58 (4.60-5.80) X10*6/uL Hgb 16.8 (14.0-18.0) g/dl Hct 50.2 (42.0-52.0) % MCV 90.0 (80.0-98.0) fL MCH 30.1 (27.0-33.0) pg MCHC 33.5 (31.0-36.0) g/dl RDW 13.7 (11.0-16.0) % Plt Count 217 (160-400) X10*3/uL MPV 9.5 (9.4-12.4) fL Immature Gran % (Auto) 0.4 (0.0-0.4) % Neut % (Auto) 76.9 H (45-73) % Lymph % (Auto) 13.0 L (20-40) % [place]gs % (Auto) 8.3 (2-11) % Eos % (Auto) 0.9 (0-4) % Baso % (Auto) 0.5 (0-2) % Lymph # (Auto) 1.7 (1.2-4.9) X10*3/uL [place] # (Auto) 1.1 (0.1-1.2) X10*3/uL Eos # (Auto) 0.1 (0.0-0.4) X10*3/uL Baso # (Auto) 0.1 (0.0-0.2) X10*3/uL Abs Immat Gran (auto) 0.05 H (0.00-0.03) X10*3/uL Absolute Neuts (auto) 10.2 H (2.0-8.3) x10*3/uL Absolute Nucleated RBC 0.000 (0.0-0.012) X10*3/uL Nucleated RBC % (auto) 0.0 (0.0-0.2) /100WBC Sodium 143 (135-145) mmol/L Potassium 5.1 (3.3-5.1) mmol/L Chloride 105 (96-108) mmol/L Carbon Dioxide 25 (22-29) mmol/L Anion Gap 18 (12-20) BUN 25 H (9-16) mg/dL Creatinine 1.63 H (0.5-1.4) mg/dL Estim Creat Clear Calc 61.4 Estimated GFR 45 Random Glucose 96 (60-115) mg/dL Calcium 10.3 H D (8.4-10.2) mg/dL Magnesium 2.1 (1.6-2.6) mg/dL Total Bilirubin 0.8 (0.0-1.0) mg/dL AST 69 H (5-37) U/L ALT 41 H (0-40) U/L Alkaline Phosphatase 68 (39-117) U/L Total Protein 7.9 (6.5-8.0) g/dL Albumin 4.8 (3.5-5.0) g/dL Urine Color Urine Appearance Urine pH (5.0-9.0) Ur Specific [place] (1.005-1.025) Urine Protein (Neg-Trace) mg/dL Urine Glucose (UA) (Negative) mg/dL Urine Ketones (Negative) mg/dL Urine Blood (Negative) Urine Nitrite (Negative) Ur Leukocyte Esterase (Negative) Urine RBC (0-2) /HPF Urine WBC (0-5) /HPF Ur Squamous Epith Cells (0-2) /HPF Urine Bacteria (None Seen) Hyaline Casts (0-2) /LPF Urine Opiates Screen (Not Detect) Urine Fentanyl Screen (Not Detect) Ur Barbiturates Screen (Not Detect) Valproic Acid 22.1 L (50.0-100.0) mcg/mL Ur Phencyclidine Scrn (Not Detect) Ur Amphetamines Screen (Not Detect) U Benzodiazepines Scrn (Not Detect) Urine Cocaine Screen (Not Detect) U Marijuana (THC) Screen (Not Detect) Ethyl Alcohol < 10 mg/dL COVID-19 (MAURICIO) (Negative) COVID-19 Clin Com Critical Care Time Critical Care Time Critical Care Time: No Discharge Plan Discharge Clinical Impression: Bipolar disorder Patient Disposition: Still a Patient Prescriptions: No Action thiamine HCl (vitamin B1) 100 mg Tablet 100 mg PO DAILY divalproex [Depakote ER] 500 mg tablet extended release 24 hr 2 tab PO BEDTIME folic acid 1 mg Tablet 1 mg PO DAILY lorazepam [Ativan] 1 mg tablet 1 tab PO TID PRN (Reason: anxiety) quetiapine [Seroquel XR] 300 mg tablet extended release 24 hr 1 tab PO BEDTIME lamotrigine [Lamictal] 200 mg tablet 1 tab PO BID lamotrigine [Lamictal] 200 mg tablet 1 tab PO BID divalproex [Depakote ER] 500 mg tablet extended release 24 hr 2 tab PO BEDTIME quetiapine [Seroquel XR] 300 mg tablet extended release 24 hr 1 tab PO BEDTIME
[2022-08-03 20:30] LABS: Bacteria Urine None Seen (None Seen); Hyaline Casts Urine 0-2 /LPF (0-2); RBC Urine 0-2 /HPF (0-2); Squamous Epithelial Cell Urine 0-2 /HPF (0-2); WBC Urine 0-5 /HPF (0-5)
[2022-08-03 20:39] LABS: MANUAL DIFF FLAG NO
[2022-08-03 20:40] LABS: COVID-19 Test Negative (Negative)
[2022-08-03 20:42] LABS: Basophils Absolute Auto 0.1 X10*3/uL (0.0-0.2); Basophils Percent Auto 0.5 % (0-2); Eosinophils Absolute Auto 0.1 X10*3/uL (0.0-0.4); Eosinophils Percent Auto 0.9 % (0-4); Hematocrit 50.2 % (42.0-52.0); Hemoglobin 16.8 g/dl (14.0-18.0); Imm Gran Abs Auto 0.05 X10*3/uL (0.00-0.03); Imm Gran Pct Auto 0.4 % (0.0-0.4); Lymphocytes Absolute Auto 1.7 X10*3/uL (1.2-4.9); Mean Corpuscular HGB Conc 33.5 g/dl (31.0-36.0); Mean Corpuscular Hemoglobin 30.1 pg (27.0-33.0); Mean Platelet Volume 9.5 fL (9.4-12.4); Monocytes Absolute Auto 1.1 X10*3/uL (0.1-1.2); Monocytes Percent Auto 8.3 % (2-11); Neutrophils Absolute Auto 10.2 x10*3/uL (2.0-8.3); Neutrophils Percent Auto 76.9 % (45-73); Platelet Count 217 X10*3/uL (160-400); Red Blood Count 5.58 X10*6/uL (4.60-5.80); Red Cell Distribution Width 13.7 % (11.0-16.0); White Blood Count 13.3 X10*3/uL (4.8-10.8)
[2022-08-03 20:44] LABS: Amphetamine Screen Urine Not Detected (Not Detect); Barbiturates, Urine Not Detected (Not Detect); Benzodiazepines Screen Urine Not Detected (Not Detect); Cannabinoid Screen Urine Not Detected (Not Detect); Cocaine Screen Urine Not Detected (Not Detect); Fentanyl, urine Not Detected (Not Detect); Opiate Screen Urine Not Detected (Not Detect); Phencyclidine Screen Urine Not Detected (Not Detect)
[2022-08-03 21:02] LABS: Alanine Aminotransferase 41 U/L (0-40); Albumin Level 4.8 g/dL (3.5-5.0); Alkaline Phosphatase 68 U/L (39-117); Anion Gap 18 (12-20); Aspartate Amino Transferase 69 U/L (5-37); Bilirubin Total 0.8 mg/dL (0.0-1.0); Blood Urea Nitrogen 25 mg/dL (9-16); Calcium 10.3 mg/dL (8.4-10.2); Carbon Dioxide 25 mmol/L (22-29); Chloride 105 mmol/L (96-108); Creatinine Clr Calc Pharmacy 61.4; Estimated Glomerular Filt Rate 45; Ethanol < 10 mg/dL; Glucose Random 96 mg/dL (60-115); Magnesium 2.1 mg/dL (1.6-2.6); Potassium 5.1 mmol/L (3.3-5.1); Sodium 143 mmol/L (135-145); Total Protein 7.9 g/dL (6.5-8.0)
[2022-08-03 21:04] LABS: Valproate 22.1 mcg/mL (50.0-100.0)
[2022-08-03 23:43] VITALS: BP 151/81; PULSE 95; RESP 16; TEMP 37.2; O2SAT 97
--- NOTE | 2022-08-04 | ECG_ITS ---
Test Reason : medical clearance Blood Pressure : / mmHG Vent. Rate : 075 BPM Atrial Rate : 075 BPM P-R Int : 158 ms QRS Dur : 100 ms QT Int : 392 ms P-R-T Axes : 055 043 058 degrees QTc Int : 437 ms Normal sinus rhythm Normal ECG When compared with ECG of 06-SEP-2021 15:39, No significant change was found Referred By: Jc Hartmann Electronically Signed By:HELEN WARD
[2022-08-04] MEDS: Calcium Carbonate 750 MG TAB.CHEW PO (01:28)
[2022-08-04] MEDS: QUEtiapine Fumarate 100 MG TABLET 150 MG PO ×2 (01:28→09:09)
--- NOTE | 2022-08-04 05:31 | PC.NURSE ---
Patient currently in bed appears sleeping, no distress observed/reported, patient struggled to fall sleep, patient engaged well with [facility], disposition is section 12 inpatient bed search, med rec completed and patient is medication compliant, thought content paranoid delusion, patient was observed self dialoguing, VSS, will continue to monitor.
[2022-08-04] MEDS: Folic Acid 1 MG TABLET PO (09:09)
[2022-08-04] MEDS: lamoTRIgine 100 MG TABLET 200 MG PO (09:09)
[2022-08-04] MEDS: Thiamine HCL 100 MG TABLET PO (09:10)
--- NOTE | 2022-08-04 09:51 | PC.NURSE ---
SPOKE WITH PTS FATHER, WITH PERMISSION OF PATIENT. EXPLAINED THAT WE ARE AWAITING ON N TO SEE HIM BEFORE WE KNOW THE ENTIRE PLAN
[2022-08-04 10:50] VITALS: BP 118/72; PULSE 79; TEMP 36.4; O2SAT 97
--- NOTE | 2022-08-04 11:07 | PC.NURSE ---
CALM COOPERATIVE, PARANOID BEHAVIORS WITH MEDICATIONS THIS MORNIG, TOOK WITHOUT ISSUE ONCE ENPLANED FURTHER. PLAN GOTO M3 AT SOMEPOINT TODAY
--- NOTE | 2022-08-04 13:26 | PC.NURSE ---
PT REQUESTING SHOWER ASSISTANCE PROVIDED
[2022-08-04 14:50] VITALS: BP 139/85; PULSE 91; TEMP 36.4; O2SAT 96
[2022-08-04 15:44] LABS: Ammonia 28 umol/L (13-55)
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
[2022-08-05 09:11] LABS: Estimated Average Glucose 100 mg/dL; Hemoglobin A1C 128.8472 umol/L; Hemoglobin A1c % 5.1 %
[2022-08-05 09:32] VITALS: BP 123/70; PULSE 63; RESP 18; TEMP 36.6; O2SAT 99
[2022-08-05 10:01] LABS: Free T4 (Free Thyroxine) 0.96 ng/dL (0.71-1.85); Thyroid Stimulating Hormone 0.26 uIU/mL (0.32-4.0)
[2022-08-05 10:02] LABS: Alanine Aminotransferase 33 U/L (0-40); Albumin Level 4.1 g/dL (3.5-5.0); Alkaline Phosphatase 56 U/L (39-117); Anion Gap 15 (12-20); Aspartate Amino Transferase 40 U/L (5-37); Bilirubin Direct 0.2 mg/dL (0.0-0.5); Bilirubin Total 0.4 mg/dL (0.0-1.0); Blood Urea Nitrogen 28 mg/dL (9-16); Calcium 9.9 mg/dL (8.4-10.2); Carbon Dioxide 28 mmol/L (22-29); Chloride 107 mmol/L (96-108); Cholesterol 195 mg/dL; Creatinine Clr Calc Pharmacy 64.1; Estimated Glomerular Filt Rate 47; Glucose Fasting 94 mg/dL (60-99); HDL Cholesterol 47 mg/dL; LDL Cholesterol Calculated 122 mg/dl; Potassium 5.1 mmol/L (3.3-5.1); Sodium 145 mmol/L (135-145); Total Protein 6.8 g/dL (6.5-8.0); Triglycerides 133 mg/dL
[2022-08-05 10:03] LABS: Folate 12.6 ng/mL (> or = 4.0); Vitamin B12 309 pg/mL (200-900)
--- NOTE | 2022-08-05 10:30 | PC.NURSE ---
Patient offered the flu vaccine and declined.
--- NOTE | 2022-08-05 12:24 | PC.NURSE ---
financial services officer: Valentina Yeung [phone].
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
[2022-08-05 21:25] VITALS: BP 183/99; PULSE 84; TEMP 36.8; O2SAT 97
[2022-08-06] MEDS: Folic Acid 1 MG TABLET PO (09:32)
[2022-08-06] MEDS: Thiamine HCL 100 MG TABLET PO (09:32)
[2022-08-06 09:46] VITALS: BP 133/90; PULSE 74; RESP 16; TEMP 36.7; O2SAT 96
--- NOTE | 2022-08-06 10:24 | HO.PSYCHPN ---
Subjective Subjective Date of Service: 08/06/22 Reason For Visit: greta Interim History: Pt reporting possible UTI sx, culture ordered. Current plan pt discussed is a medicine wash out as he believes he has never been given a chance to self- regulate without medications and allow chemistry values to stabilize. He is pleased with that plan. Reports restful sleep, reasonable appetite and feeling well. Discussed events prior to admission. Medication Compliance: No Side effects from medications: Yes Attending Groups: Yes Review of Systems Acute medical concerns: No Urine culture pending Medical Review of Systems: unchanged Mental Status Exam Mental Status Exam Patient Appearance: Appropriate Patient Orientation: Person, Place, Time and Situation Level of Consciousness: Alert Patient Behavior: Talkative Mood Description: Anxious Affect Description: Anxious Patient Cognition Impaired: No Ability to Follow Directions: Good Speech Pattern: Spontaneous Speech Memory Description: Episodic Impaired Hallucinations: None Delusions: Grandiose and Present Thought Process: Distracted Thought Content: positive for [place], positive for Circumstantial and positive for Tangential Judgement: Fair Diagnostics Vital Signs (24Hr): Vital Signs - 24 hr 08/05/22 21:25 08/06/22 09:46 Temperature 98.3 F 98.1 F Pulse Rate 84 74 Respiratory Rate 16 Blood Pressure 183/99 H 133/90 H Pulse Oximetry 97 96 Oxygen Delivery Method Room Air Room Air BMI result Body Mass Index 30.1 Labs Results: 08/03/22 20:31 08/05/22 07:44 Labs: Laboratory Results - last 48 hr 08/04/22 08/05/22 08/05/22 15:24 07:44 07:44 Sodium 145 Potassium 5.1 Chloride 107 Carbon Dioxide 28 Anion Gap 15 BUN 28 H Creatinine 1.56 H Estim Creat Clear Calc 64.1 Estimated GFR 47 Fasting Glucose 94 Estimat Average Glucose 100 Hemoglobin A1c % 5.1 Calcium 9.9 Total Bilirubin 0.4 Direct Bilirubin 0.2 AST 40 H D ALT 33 Alkaline Phosphatase 56 Ammonia 28 Total Protein 6.8 Albumin 4.1 Triglycerides 133 Cholesterol 195 LDL Cholesterol, Calc 122 HDL Cholesterol 47 Vitamin B12 Folate TSH 0.26 L Free T4 0.96 08/05/22 07:44 Sodium Potassium Chloride Carbon Dioxide Anion Gap BUN Creatinine Estim Creat Clear Calc Estimated GFR Fasting Glucose Estimat Average Glucose Hemoglobin A1c % Calcium Total Bilirubin Direct Bilirubin AST ALT Alkaline Phosphatase Ammonia Total Protein Albumin Triglycerides Cholesterol LDL Cholesterol, Calc HDL Cholesterol Vitamin B12 309 Folate 12.6 TSH Free T4 Medications Medications Current Medications Acetaminophen (Acetaminophen 325 Mg Tablet) 650 mg PO Q6H PRN PRN Reason: Headache/Pain Mild Scale (1-3) Al Hydroxide/Mg Hydroxide (Magnesium Hydrox/Alum Hydrox 30 Ml Oral.Susp) 30 ml PO Q6H PRN PRN Reason: Heartburn/Nausea Divalproex Sodium (Divalproex Sodium Er 500 Mg Tab.Er.24h) 1,500 mg PO BEDTIME [facility] Last Admin: 08/04/22 23:35 Dose: Not Given Folic Acid (Folic Acid 1 Mg Tablet) 1 mg PO DAILY [facility] Last Admin: 08/06/22 09:32 Dose: 1 mg Hydroxyzine HCl (Hydroxyzine Hcl 25 Mg Tablet) 25 mg PO Q6H PRN PRN Reason: Anxiety Lamotrigine (Lamotrigine 100 Mg Tablet) 200 mg PO BID [facility] Last Admin: 08/05/22 11:09 Dose: Not Given Lorazepam (Lorazepam 1 Mg Tablet) 1 mg PO TID PRN PRN Reason: anxiety Magnesium Hydroxide (Milk Of Magnesia 30 Ml Oral.Susp) 30 ml PO DAILY PRN PRN Reason: Constipation Nicotine Polacrilex (Nicotine Polacrilex 2 Mg Gum) 4 mg BUCCAL Q2H PRN PRN Reason: Nicotine Cravings Quetiapine Fumarate (Quetiapine Fumarate 50 Mg Tablet) 150 mg PO BID PRN PRN Reason: agitation or insomnia Thiamine HCl (Thiamine Hcl 100 Mg Tablet) 100 mg PO DAILY [facility] Last Admin: 08/06/22 09:32 Dose: 100 mg Trazodone HCl (Trazodone Hcl 50 Mg Tablet) 50 mg PO BEDTIME PRN PRN Reason: Insomnia Allergies Allergies Allergy/AdvReac Type Severity Reaction Status Date / Time carbamazepine Allergy Unknown Verified 08/04/22 16:45 haloperidol [From Haldol] AdvReac Vomiting Verified 08/03/22 19:32 Assessment & Plan Assessment & Plan (1) Bipolar disorder: Status: Acute Code(s): F31.9 - Bipolar disorder, unspecified (2) Greta: Status: Acute Code(s): F30.9 - Manic episode, unspecified Plan encourage to restart meds. T/C lithium; would require renal involvement. 08/06/22 No interest in medication Observe, Educate, Support in re-starting a treatment plan. I spent minutes with the patient and/or on the patient floor today, greater than?50% of which was spent counseling/coordinating care. Patient educated on: medication risk/benefits and therapeutic strategies Informed Consent: further education needed Reason for contiued inpatient stay Substantial Risk for: rapid decompensation and med/psych decompensation
--- NOTE | 2022-08-06 17:31 | PC.NURSE ---
Jos?s mother requested to speak with Jos?s nurse. His mother wanted to convey the following information to Jos?s care team. Jos participated in the conversation: * Prior to admission to [facility], Jos was taking Lamictal, Depakote, Ativan and Seroquel without good effect. His mother stated he was previously taken off [place] due to kidney issues. Discussed required monitoring of [place] levels, as well as dietary intake requirements including adequate salt and hydration. * Both Jos and his mother want to ensure any new medication is effective. His mother states he needs an antipsychotic; and, Jos stated he is willing to take medication ?after a period of observation? for brain chemical ?balance to be restored with some clean time.? * Jos?s mother reported Jos has a long history of bipolar, with this current episode the first with psychosis. * His mother described Jos getting into legal trouble when psychosis started >1 year ago. At that time, Jos discovered some ?bad stuff? in [place] and was charged with harassment, defamation and stalking for posting about this online. He was ordered to undergo 20-day observation, first by [place], then [place] courts. Both hospitalizations, he was kept on the same medication that was not working. ?They warehoused him.? During the second hospitalization, this episode of psychosis began. * Jos has had bad reactions to Haldol. He states he is going to petition to have this medication removed from the market. ?Notes were taken during the conversation, and Jos and his mother were assured this information would be shared with the care team.
[2022-08-06 17:40] VITALS: BP 148/79; PULSE 89; RESP 16; TEMP 36.6; O2SAT 99
[2022-08-06 19:40] VITALS: BP 138/90; PULSE 93; RESP 16; TEMP 36.6; O2SAT 98
[2022-08-07] MEDS: Thiamine HCL 100 MG TABLET PO (08:39)
[2022-08-07] MEDS: Folic Acid 1 MG TABLET PO (08:39)
[2022-08-07 08:43] VITALS: BP 153/100; PULSE 75; RESP 16; TEMP 36.6; O2SAT 97
[2022-08-07] MEDS: QUEtiapine Fumarate 50 MG TABLET 150 MG PO (09:11)
[2022-08-07 12:14] VITALS: BP 129/81; PULSE 70
--- NOTE | 2022-08-07 16:53 | HO.PSYCHPN ---
Subjective Subjective Date of Service: 08/07/22 Reason For Visit: greta Interim History: Blood pressure elevations reports. Clonidine added. Pt declined. Did accept Seroquel and blood pressure did decrease after that. Napping when seen today. Reports feeling OK , pleased he is washing out of current regime. Team reports poor sleep last night. Review of Systems Acute medical concerns: No Medical Review of Systems: unchanged Mental Status Exam Mental Status Exam Patient Appearance: Appropriate Patient Orientation: Person, Place, Time and Situation Level of Consciousness: Alert Patient Behavior: Talkative Mood Description: Anxious Affect Description: Anxious Patient Cognition Impaired: No Ability to Follow Directions: Good Speech Pattern: Spontaneous Speech Memory Description: Episodic Impaired Hallucinations: None Delusions: Grandiose and Present Thought Process: Distracted Thought Content: positive for [place], positive for Circumstantial and positive for Tangential Judgement: Fair Diagnostics Vital Signs (24Hr): Vital Signs - 24 hr 08/06/22 17:40 08/06/22 19:40 08/07/22 08:43 Temperature 97.8 F 97.8 F 97.8 F Pulse Rate 89 93 75 Respiratory Rate 16 16 16 Blood Pressure 148/79 H 138/90 H 153/100 H Pulse Oximetry 99 98 97 Oxygen Delivery Method Room Air Room Air 08/07/22 12:14 Temperature Pulse Rate 70 Respiratory Rate Blood Pressure 129/81 Pulse Oximetry Oxygen Delivery Method BMI result Body Mass Index 30.1 Labs Results: 08/03/22 20:31 08/05/22 07:44 Medications Medications Current Medications Acetaminophen (Acetaminophen 325 Mg Tablet) 650 mg PO Q6H PRN PRN Reason: Headache/Pain Mild Scale (1-3) Al Hydroxide/Mg Hydroxide (Magnesium Hydrox/Alum Hydrox 30 Ml Oral.Susp) 30 ml PO Q6H PRN PRN Reason: Heartburn/Nausea Clonidine HCl (Clonidine Hcl 0.1 Mg Tablet) 0.1 mg PO BID [facility]; Protocol Last Admin: 08/07/22 10:55 Dose: Not Given Divalproex Sodium (Divalproex Sodium Er 500 Mg Tab.Er.24h) 1,500 mg PO BEDTIME [facility] Last Admin: 08/04/22 23:35 Dose: Not Given Folic Acid (Folic Acid 1 Mg Tablet) 1 mg PO DAILY [facility] Last Admin: 08/07/22 08:39 Dose: 1 mg Hydroxyzine HCl (Hydroxyzine Hcl 25 Mg Tablet) 25 mg PO Q6H PRN PRN Reason: Anxiety Lamotrigine (Lamotrigine 100 Mg Tablet) 200 mg PO BID [facility] Last Admin: 08/05/22 11:09 Dose: Not Given Lorazepam (Lorazepam 1 Mg Tablet) 1 mg PO TID PRN PRN Reason: anxiety Magnesium Hydroxide (Milk Of Magnesia 30 Ml Oral.Susp) 30 ml PO DAILY PRN PRN Reason: Constipation Nicotine Polacrilex (Nicotine Polacrilex 2 Mg Gum) 4 mg BUCCAL Q2H PRN PRN Reason: Nicotine Cravings Quetiapine Fumarate (Quetiapine Fumarate 50 Mg Tablet) 150 mg PO BID PRN PRN Reason: agitation or insomnia Last Admin: 08/07/22 09:11 Dose: 150 mg Thiamine HCl (Thiamine Hcl 100 Mg Tablet) 100 mg PO DAILY [facility] Last Admin: 08/07/22 08:39 Dose: 100 mg Trazodone HCl (Trazodone Hcl 50 Mg Tablet) 50 mg PO BEDTIME PRN PRN Reason: Insomnia Allergies Allergies Allergy/AdvReac Type Severity Reaction Status Date / Time carbamazepine Allergy Unknown Verified 08/04/22 16:45 haloperidol [From Haldol] AdvReac Vomiting Verified 08/03/22 19:32 Assessment & Plan Assessment & Plan (1) Bipolar disorder: Status: Acute Code(s): F31.9 - Bipolar disorder, unspecified (2) Greta: Status: Acute Code(s): F30.9 - Manic episode, unspecified Plan encourage to restart meds. T/C lithium; would require renal involvement. 08/06/22 No interest in medication Observe, Educate, Support in re-starting a treatment plan. 08/07/22 Clonidine 0.1 mg bid for blood pressure mgt and mgt of anxiety-pt refused. Using Seroquel which helped to decrease BP. I spent minutes with the patient and/or on the patient floor today, greater than?50% of which was spent counseling/coordinating care. Informed Consent: further education needed Reason for contiued inpatient stay Substantial Risk for: harm to self, inability to function, rapid decompensation and med/psych decompensation
[2022-08-07 20:41] VITALS: BP 125/72; PULSE 108; TEMP 36.4; O2SAT 96
--- NOTE | 2022-08-07 21:26 | PC.NURSE ---
skin-reports rash btwn thighs ''from walking alot before I came in'' also with dry calloused heels. declined interventions.
[2022-08-08] MEDS: QUEtiapine Fumarate 50 MG TABLET 150 MG PO ×2 (03:02→21:50)
--- NOTE | 2022-08-08 03:42 | PC.NURSE ---
rash-patient allowed for visual assessment of rash he had reported last evening but had not allowed assessment on. approached desk reporting ''burning'' area has raw, beefy appearance.
[2022-08-08 06:00] VITALS: BP 133/78; PULSE 78; RESP 18; TEMP 36.6; O2SAT 99
[2022-08-08] MEDS: Folic Acid 1 MG TABLET PO (09:43)
[2022-08-08] MEDS: Thiamine HCL 100 MG TABLET PO (09:43)
--- NOTE | 2022-08-08 18:10 | P.PNPSI_ITS ---
Subjective Subjective Date of Service: 08/08/22 Reason For Visit: greta Interim History: Reports feeling improved. Finds Seroquel quite helpful ( More than the extended release Seroquel) Reports improved sleep in addition. Review of Systems Acute medical concerns: No Medical Review of Systems: unchanged Mental Status Exam Mental Status Exam Patient Appearance: Appropriate Patient Orientation: Person, Place, Time and Situation Level of Consciousness: Alert Patient Behavior: Talkative Mood Description: Anxious Affect Description: Anxious Patient Cognition Impaired: No Ability to Follow Directions: Good Speech Pattern: Spontaneous Speech Memory Description: Episodic Impaired Hallucinations: None Delusions: Grandiose and Present Thought Process: Distracted Thought Content: positive for [place], positive for Circumstantial and positive for Tangential Judgement: Fair Diagnostics Vital Signs (24Hr): Vital Signs - 24 hr 08/07/22 20:41 08/08/22 06:00 Temperature 97.6 F 97.9 F Pulse Rate 108 H 78 Respiratory Rate 18 Blood Pressure 125/72 133/78 Pulse Oximetry 96 99 Oxygen Delivery Method Room Air Room Air BMI result Body Mass Index 30.1 Labs Results: 08/03/22 20:31 08/05/22 07:44 Medications Medications Current Medications Acetaminophen (Acetaminophen 325 Mg Tablet) 650 mg PO Q6H PRN PRN Reason: Headache/Pain Mild Scale (1-3) Al Hydroxide/Mg Hydroxide (Magnesium Hydrox/Alum Hydrox 30 Ml Oral.Susp) 30 ml PO Q6H PRN PRN Reason: Heartburn/Nausea Clonidine HCl (Clonidine Hcl 0.1 Mg Tablet) 0.1 mg PO BID [facility]; Protocol Last Admin: 08/08/22 09:43 Dose: Not Given Divalproex Sodium (Divalproex Sodium Er 500 Mg Tab.Er.24h) 1,500 mg PO BEDTIME [facility] Last Admin: 08/04/22 23:35 Dose: Not Given Folic Acid (Folic Acid 1 Mg Tablet) 1 mg PO DAILY [facility] Last Admin: 08/08/22 09:43 Dose: 1 mg Hydroxyzine HCl (Hydroxyzine Hcl 25 Mg Tablet) 25 mg PO Q6H PRN PRN Reason: Anxiety Lamotrigine (Lamotrigine 100 Mg Tablet) 200 mg PO BID [facility] Last Admin: 08/05/22 11:09 Dose: Not Given Lorazepam (Lorazepam 1 Mg Tablet) 1 mg PO TID PRN PRN Reason: anxiety Magnesium Hydroxide (Milk Of Magnesia 30 Ml Oral.Susp) 30 ml PO DAILY PRN PRN Reason: Constipation Nicotine Polacrilex (Nicotine Polacrilex 2 Mg Gum) 4 mg BUCCAL Q2H PRN PRN Reason: Nicotine Cravings Quetiapine Fumarate (Quetiapine Fumarate 50 Mg Tablet) 150 mg PO BID PRN PRN Reason: agitation or insomnia Last Admin: 08/08/22 03:02 Dose: 150 mg Thiamine HCl (Thiamine Hcl 100 Mg Tablet) 100 mg PO DAILY [facility] Last Admin: 08/08/22 09:43 Dose: 100 mg Trazodone HCl (Trazodone Hcl 50 Mg Tablet) 50 mg PO BEDTIME PRN PRN Reason: Insomnia Allergies Allergies Allergy/AdvReac Type Severity Reaction Status Date / Time carbamazepine Allergy Unknown Verified 08/04/22 16:45 haloperidol [From Haldol] AdvReac Vomiting Verified 08/03/22 19:32 Assessment & Plan Assessment & Plan (1) Bipolar disorder: Status: Acute Code(s): F31.9 - Bipolar disorder, unspecified (2) Greta: Status: Acute Code(s): F30.9 - Manic episode, unspecified Plan encourage to restart meds. T/C lithium; would require renal involvement. 08/06/22 No interest in medication Observe, Educate, Support in re-starting a treatment plan. 08/07/22 Clonidine 0.1 mg bid for blood pressure mgt and mgt of anxiety-pt refused. Using Seroquel which helped to decrease BP. 08/08/22- Discontinue clonidine. Continue current plan of care. I spent minutes with the patient and/or on the patient floor today, greater than?50% of which was spent counseling/coordinating care. Patient educated on: medication risk/benefits Informed Consent: further education needed Reason for contiued inpatient stay Substantial Risk for: med/psych decompensation
[2022-08-09 09:00] VITALS: BP 125/76; PULSE 83; RESP 18; TEMP 36.2; O2SAT 96
[2022-08-09] MEDS: Thiamine HCL 100 MG TABLET PO (09:14)
[2022-08-09] MEDS: Folic Acid 1 MG TABLET PO (09:14)
--- NOTE | 2022-08-09 14:22 | HO.PSYCHPN ---
Subjective Subjective Date of Service: 08/09/22 Reason For Visit: greta Interim History: calm, cooperative. states he restarted seroquel to help him sleep. he had not been sleeping well and noted his BP increasing, so he decided to take the medication for that purpose and feels it has been quite helpful for that. reports he has a chafing rash on his thighs which he does not believe is fungal and he declines any treatment or further evaluation for it. he is open to renal consultation for opinion on suitability for lithium therapy. he has no other questions or complaints currently. per staff, not attending groups. isolative. clonidine DCed. ativan PRN DCed (pt taking neither). taking seroquel at HS. slept well. Mental Status Exam Mental Status Exam Narrative: adequately dressed and groomed. not talking to himself while in milieu. cooperative and friendly. speech clipped but otherwise nml in rate, amount, loudness, latency. flattened tone. thoughts linear and illogical. affect constricted, hypo-intense, non-labile. no SI/HI/AVH expressed. Diagnostics Vital Signs (24Hr): Vital Signs - 24 hr 08/09/22 09:00 Temperature 97.2 F Pulse Rate 83 Respiratory Rate 18 Blood Pressure 125/76 Pulse Oximetry 96 Oxygen Delivery Method Room Air BMI result Body Mass Index 30.1 Labs Results: 08/03/22 20:31 08/05/22 07:44 Medications Medications Current Medications Acetaminophen (Acetaminophen 325 Mg Tablet) 650 mg PO Q6H PRN PRN Reason: Headache/Pain Mild Scale (1-3) Al Hydroxide/Mg Hydroxide (Magnesium Hydrox/Alum Hydrox 30 Ml Oral.Susp) 30 ml PO Q6H PRN PRN Reason: Heartburn/Nausea Divalproex Sodium (Divalproex Sodium Er 500 Mg Tab.Er.24h) 1,500 mg PO BEDTIME [facility] Last Admin: 08/04/22 23:35 Dose: Not Given Folic Acid (Folic Acid 1 Mg Tablet) 1 mg PO DAILY [facility] Last Admin: 08/09/22 09:14 Dose: 1 mg Hydroxyzine HCl (Hydroxyzine Hcl 25 Mg Tablet) 25 mg PO Q6H PRN PRN Reason: Anxiety Lamotrigine (Lamotrigine 100 Mg Tablet) 200 mg PO BID [facility] Last Admin: 08/05/22 11:09 Dose: Not Given Magnesium Hydroxide (Milk Of Magnesia 30 Ml Oral.Susp) 30 ml PO DAILY PRN PRN Reason: Constipation Nicotine Polacrilex (Nicotine Polacrilex 2 Mg Gum) 4 mg BUCCAL Q2H PRN PRN Reason: Nicotine Cravings Quetiapine Fumarate (Quetiapine Fumarate 50 Mg Tablet) 150 mg PO BID PRN PRN Reason: agitation or insomnia Last Admin: 08/08/22 21:50 Dose: 150 mg Thiamine HCl (Thiamine Hcl 100 Mg Tablet) 100 mg PO DAILY [facility] Last Admin: 08/09/22 09:14 Dose: 100 mg Trazodone HCl (Trazodone Hcl 50 Mg Tablet) 50 mg PO BEDTIME PRN PRN Reason: Insomnia Allergies Allergies Allergy/AdvReac Type Severity Reaction Status Date / Time carbamazepine Allergy Unknown Verified 08/04/22 16:45 haloperidol [From Haldol] AdvReac Vomiting Verified 08/03/22 19:32 Assessment & Plan Assessment & Plan (1) Bipolar disorder: Status: Acute Code(s): F31.9 - Bipolar disorder, unspecified (2) Greta: Status: Acute Code(s): F30.9 - Manic episode, unspecified Plan encourage to restart meds. T/C lithium; would require renal involvement. 08/06/22 No interest in medication Observe, Educate, Support in re-starting a treatment plan. 08/07/22 Clonidine 0.1 mg bid for blood pressure mgt and mgt of anxiety-pt refused. Using Seroquel which helped to decrease BP. 08/08/22- Discontinue clonidine. Continue current plan of care. 08/09: continue current mgmt. ask renal to weigh-in on restarting lithium. I spent ___25___ minutes with the patient and/or on the patient floor today, greater than?50% of which was spent counseling/coordinating care. Reason for contiued inpatient stay Substantial Risk for: inability to function and rapid decompensation
[2022-08-09] MEDS: QUEtiapine Fumarate 50 MG TABLET 150 MG PO (23:42)
[2022-08-10 09:18] VITALS: BP 132/79; PULSE 68; RESP 16; TEMP 36.4; O2SAT 99
[2022-08-10] MEDS: Folic Acid 1 MG TABLET PO (09:23)
[2022-08-10] MEDS: Thiamine HCL 100 MG TABLET PO (09:23)
[2022-08-10 13:37] LABS: COVID-19 Test Negative (Negative)
--- NOTE | 2022-08-10 15:05 | HO.PSYCHPN ---
Subjective Subjective Date of Service: 08/10/22 Reason For Visit: greta Interim History: calm, cooperative. discuss renal MD's opinion with pt. pt acknowledges the position but expresses no interest in restarting lithium. he does agree to schedule seroquel at HS, however. states he is feeling pretty good and slept well. per staff, denying Sx. calm, positive interactions. isolative on eves. stated goal is to be off of all medications. awake until around 0230. did have seroquel 150 at HS. Mental Status Exam Mental Status Exam Narrative: adequately dressed and groomed. not talking to himself while in milieu. cooperative and friendly. speech clipped but otherwise nml in rate, amount, loudness, latency. flattened tone. thoughts linear and illogical. affect constricted, hypo-intense, non-labile. no SI/HI/AVH expressed. Diagnostics Vital Signs (24Hr): Vital Signs - 24 hr 08/10/22 09:18 Temperature 97.6 F Pulse Rate 68 Respiratory Rate 16 Blood Pressure 132/79 Pulse Oximetry 99 Oxygen Delivery Method Room Air BMI result Body Mass Index 30.1 Labs Results: 08/03/22 20:31 08/05/22 07:44 Labs: Laboratory Results - last 48 hr 08/10/22 12:38 COVID-19 ([facility]) Negative COVID-19 Clin Com See Note Medications Medications Current Medications Acetaminophen (Acetaminophen 325 Mg Tablet) 650 mg PO Q6H PRN PRN Reason: Headache/Pain Mild Scale (1-3) Al Hydroxide/Mg Hydroxide (Magnesium Hydrox/Alum Hydrox 30 Ml Oral.Susp) 30 ml PO Q6H PRN PRN Reason: Heartburn/Nausea Divalproex Sodium (Divalproex Sodium Er 500 Mg Tab.Er.24h) 1,500 mg PO BEDTIME [facility] Last Admin: 08/04/22 23:35 Dose: Not Given Folic Acid (Folic Acid 1 Mg Tablet) 1 mg PO DAILY [facility] Last Admin: 08/10/22 09:23 Dose: 1 mg Hydroxyzine HCl (Hydroxyzine Hcl 25 Mg Tablet) 25 mg PO Q6H PRN PRN Reason: Anxiety Lamotrigine (Lamotrigine 100 Mg Tablet) 200 mg PO BID [facility] Last Admin: 08/05/22 11:09 Dose: Not Given Magnesium Hydroxide (Milk Of Magnesia 30 Ml Oral.Susp) 30 ml PO DAILY PRN PRN Reason: Constipation Nicotine Polacrilex (Nicotine Polacrilex 2 Mg Gum) 4 mg BUCCAL Q2H PRN PRN Reason: Nicotine Cravings Quetiapine Fumarate (Quetiapine Fumarate 50 Mg Tablet) 150 mg PO BID PRN PRN Reason: agitation or insomnia Last Admin: 08/09/22 23:42 Dose: 150 mg Quetiapine Fumarate (Quetiapine Fumarate 50 Mg Tablet) 150 mg PO DAILY@2200 [facility] Thiamine HCl (Thiamine Hcl 100 Mg Tablet) 100 mg PO DAILY [facility] Last Admin: 08/10/22 09:23 Dose: 100 mg Trazodone HCl (Trazodone Hcl 50 Mg Tablet) 50 mg PO BEDTIME PRN PRN Reason: Insomnia Allergies Allergies Allergy/AdvReac Type Severity Reaction Status Date / Time carbamazepine Allergy Unknown Verified 08/04/22 16:45 haloperidol [From Haldol] AdvReac Vomiting Verified 08/03/22 19:32 Assessment & Plan Assessment & Plan (1) Bipolar disorder: Status: Acute Code(s): F31.9 - Bipolar disorder, unspecified (2) Greta: Status: Acute Code(s): F30.9 - Manic episode, unspecified Plan encourage to restart meds. T/C lithium; would require renal involvement. 08/06/22 No interest in medication Observe, Educate, Support in re-starting a treatment plan. 08/07/22 Clonidine 0.1 mg bid for blood pressure mgt and mgt of anxiety-pt refused. Using Seroquel which helped to decrease BP. 08/08/22- Discontinue clonidine. Continue current plan of care. 08/09: continue current mgmt. ask renal to weigh-in on restarting lithium. 08/10: per renal, may restart lithium if it is the only option for treatment; close monitoring of renal function in that case mandatory with low threshold for lowering/DCing lithium if renal damage should become evident. pt appears uninterested in this option at present. no change in presentation. seroquel 150 mg scheduled at HS. otherwise continue current mgmt. I spent __35____ minutes with the patient and/or on the patient floor today, greater than?50% of which was spent counseling/coordinating care. Reason for contiued inpatient stay Substantial Risk for: rapid decompensation
--- NOTE | 2022-08-10 15:17 | P.CONNP_ITS ---
History of Present Illness Reason for Consult Consult date: 08/10/22 Reason for consult: CKD Chief Complaint Chief complaint: vandana History of Present Illness Narrative: 51-year-old male history of bipolar disorder coming in the emergency department from home with his parents were concerned that patient has been acting paranoid at home and with delusions of contamination.? According to parents patient has left the multiple times over the past week and has displayed erratic behaviors, so much to the ones that he displays when he is having an acute psychotic episode.? Patient tells me he is fine, denies any complaints at this moment but tells me he fluctuates between anxious and depressed.? Denies SI, HI.? Denies visual, auditory and tactile hallucinations.? Denies drugs, alcohol and tobacco.? Upon history taking patient, and cooperative with no acute distress. 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 This consult was requested for possibly restarting Deseret Review of Systems Constitutional: Denies anorexia and Denies fatigue Eyes: Reports no additional eye complaints Denies dizziness and Denies epistaxis Cardiovascular: Denies Abdominal Distension and Denies diaphoresis Respiratory: Denies chest congestion and Denies hemoptysis Gastrointestinal: Denies change in bowel habits, Denies dyspepsia and Denies vomiting Genitourinary: Denies hematuria, Denies dysuria, Denies urinary frequency, Denies urinary incontinence and Denies urinary urgency Musculoskeletal: Denies numbness Reports Abnormal speech present, Denies dizziness, Denies focal weakness, Denies numbness and Denies paresthesias Endocrine: Denies fatigue PMFSH Social History Social History Household Members: Spouse Household Members Other:: only Housing: Condominium Do you presently have visiting nurse or other home services: No Patient Tobacco Use Status: Never used Tobacco Patient Interested in Nicotine Replacement: No Patient Given Instructions on How to Stop Smoking: No Second Hand Smoke Exposure: No Use of substances other than those prescribed or required for medical reasons: No Currently Displaying Signs/Symptoms of Drug Intoxication Withdrawal: No Have you been hit, kicked, punched, or otherwise hurt by someone within the past year? If so, by whom?: No Do you feel safe in your current relationship?: Yes Is there a partner from a previous relationship who is making you feel unsafe now?: No Are you made to feel afraid or neglected: No ( I'll say no to that. ) Cultural Healthcare Practices: Don't abuse anything. Advance Directives: Yes () Advance Directives Information Provided: No Do you have thoughts of harming others: None Do you have a plan to hurt others: No Plan Recently lost weight without trying: No Eating poorly because of decreased appetite: No Nutrition Risks: No Nutritional Risk Poor oral hygiene: No ( I try to brush them regularly. ) Meds Allergies Allergy/AdvReac Type Severity Reaction Status Date / Time carbamazepine Allergy Unknown Verified 08/04/22 16:45 haloperidol [From Haldol] AdvReac Vomiting Verified 08/03/22 19:32 Active Medications: Current Medications Acetaminophen (Acetaminophen 325 Mg Tablet) 650 mg PO Q6H PRN PRN Reason: Headache/Pain Mild Scale (1-3) Al Hydroxide/Mg Hydroxide (Magnesium Hydrox/Alum Hydrox 30 Ml Oral.Susp) 30 ml PO Q6H PRN PRN Reason: Heartburn/Nausea Divalproex Sodium (Divalproex Sodium Er 500 Mg Tab.Er.24h) 1,500 mg PO BEDTIME [facility] Last Admin: 08/04/22 23:35 Dose: Not Given Folic Acid (Folic Acid 1 Mg Tablet) 1 mg PO DAILY [facility] Last Admin: 08/10/22 09:23 Dose: 1 mg Hydroxyzine HCl (Hydroxyzine Hcl 25 Mg Tablet) 25 mg PO Q6H PRN PRN Reason: Anxiety Lamotrigine (Lamotrigine 100 Mg Tablet) 200 mg PO BID [facility] Last Admin: 08/05/22 11:09 Dose: Not Given Magnesium Hydroxide (Milk Of Magnesia 30 Ml Oral.Susp) 30 ml PO DAILY PRN PRN Reason: Constipation Nicotine Polacrilex (Nicotine Polacrilex 2 Mg Gum) 4 mg BUCCAL Q2H PRN PRN Reason: Nicotine Cravings Quetiapine Fumarate (Quetiapine Fumarate 50 Mg Tablet) 150 mg PO BID PRN PRN Reason: agitation or insomnia Last Admin: 08/09/22 23:42 Dose: 150 mg Quetiapine Fumarate (Quetiapine Fumarate 50 Mg Tablet) 150 mg PO DAILY@2200 [facility] Thiamine HCl (Thiamine Hcl 100 Mg Tablet) 100 mg PO DAILY [facility] Last Admin: 08/10/22 09:23 Dose: 100 mg Trazodone HCl (Trazodone Hcl 50 Mg Tablet) 50 mg PO BEDTIME PRN PRN Reason: Insomnia Home Medications Medication Instructions Recorded Confirmed Last Taken Type folic acid 1 mg tablet 1 mg PO DAILY 09/05/21 08/03/22 Unknown History thiamine HCl (vitamin B1) 100 mg 100 mg PO DAILY 09/05/21 08/03/22 Unknown Hist ory tablet divalproex 500 mg tablet,extended 2 tab PO BEDTIME 08/03/22 08/03/22 Unknown History release 24 hr (Depakote ER) lamotrigine 200 mg tablet 1 tab PO BID 08/03/22 08/03/22 Unknown History (Lamictal) lorazepam 1 mg tablet (Ativan) 1 tab PO TID PRN anxiety 08/03/22 08/03/22 Unknown History quetiapine 300 mg tablet,extended 1 tab PO BEDTIME 08/03/22 08/03/22 Unknown History release 24 hr (Seroquel XR) Physical Exam Vital Signs: Last Vital Signs Temp 97.6 F 08/10/22 09:18 Pulse 68 08/10/22 09:18 Resp 16 08/10/22 09:18 BP 132/79 08/10/22 09:18 Pulse Ox 99 08/10/22 09:18 O2 Del Method 08/10/22 09:18 BMI result Body Mass Index 30.1 Const General: cooperative and anxious Orientation/consciousness: oriented to person and oriented to place HEENT Head: Yes normal to inspection Eyes General: appearance normal, both eyes and all related structures Neck Neck: Yes full ROM and Yes supple Resp Effort & Inspection: normal respiratory effort Auscultation: clear to auscultation bilaterally, no rales and no rhonchi Cardio Jugular venous distension: no JVD Palpation: no palpable S3 and no palpable S4 Heart sounds: no click, no murmurs and no rubs GI Inspection: Yes normal to inspection Palpation (GI): Soft to palpation Percussion: Yes normal to percussion Auscultation: normal bowel sounds Skin General skin exam: no rashes or lesions noted Neuro General: oriented to person and oriented to place Speech: Abnormal speech present Gait exam (Neuro): not ataxic Motor exam (neuro): no asterixis Extrem General: Yes no pedal edema and No calf tenderness Results Lab Results Result Diagrams: 08/03/22 20:31 08/05/22 07:44 Assessment and Plan (1) CKD (chronic kidney disease) stage 3, GFR 30-59 ml/min: Status: Acute Plan Valeria has stage III chronic kidney disease. 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 The renal function has been relatively stable. He has no overt signs or symptoms of diabetes insipidus. Ideally i would prefer to avoid restarting lithium. There is a risk of ongoing renal injury from lithium. However it appears that this is only drug that seems to be working for him. The risks and benefits were explained to the patient and he is willing to restart lithium. At this point , lithium can be restarted cautiously and monitor his serum sodium and serum creatinine closely?at least once a month. If he starts developing polyuria or hypernatremia or if creatinine increases then we should discontinue Deseret and revisit the use of lithium. Procedures Date of Service Date of Service: 08/10/22
[2022-08-10] MEDS: QUEtiapine Fumarate 50 MG TABLET 150 MG PO (22:05)
[2022-08-10 22:09] VITALS: BP 157/95; PULSE 76; TEMP 37.1; O2SAT 96
[2022-08-11 07:00] VITALS: BMI 29.7
[2022-08-11 08:30] VITALS: BP 107/55; PULSE 64; RESP 18; TEMP 36.5; O2SAT 97
[2022-08-11] MEDS: Folic Acid 1 MG TABLET PO (09:45)
[2022-08-11] MEDS: Thiamine HCL 100 MG TABLET PO (09:45)
--- NOTE | 2022-08-11 13:54 | HO.PSYCHPN ---
Subjective Subjective Date of Service: 08/11/22 Reason For Visit: greta Interim History: pt is calm and cooperative. he was observed whispering softly to himself while seated in the sensory room just prior to interview. on being asked what was happening he said he was thinking about some things, namely, conquer fear and anger with resolve, and situations where that was applicable. he gave another example of something on his mind, we don't want any kings, just teachers and examples and principles. MD attempted several times to ask his opinion regarding his medications regimen, to which he replied with confabulation. he agreed to continue with current plan for the time being. per staff, isolative. not attending groups. no anx/dep/AVH. active and appropriate on eves. denies SI/HI/AVH. +RIS. slept interrupted from 0100 to 0700. Mental Status Exam Mental Status Exam Narrative: adequately dressed and groomed. talking softly to himself while in milieu. cooperative and friendly. speech clipped but otherwise nml in rate, amount, loudness, latency. flattened tone. thoughts linear and logical in very superficial conversation, disorganized and confabulatory in more detailed conversation. vague, evasive. affect constricted, hypo-intense, non-labile. no SI/HI/AVH expressed. Diagnostics Vital Signs (24Hr): Vital Signs - 24 hr 08/10/22 22:09 08/11/22 08:30 Temperature 98.7 F 97.7 F Pulse Rate 76 64 Respiratory Rate 18 Blood Pressure 157/95 H 107/55 L Pulse Oximetry 96 97 Oxygen Delivery Method Room Air Room Air BMI result Body Mass Index 29.7 Labs Results: 08/03/22 20:31 08/05/22 07:44 Labs: Laboratory Results - last 48 hr 08/10/22 12:38 COVID-19 ([facility]) Negative COVID-19 Clin Com See Note Medications Medications Current Medications Acetaminophen (Acetaminophen 325 Mg Tablet) 650 mg PO Q6H PRN PRN Reason: Headache/Pain Mild Scale (1-3) Al Hydroxide/Mg Hydroxide (Magnesium Hydrox/Alum Hydrox 30 Ml Oral.Susp) 30 ml PO Q6H PRN PRN Reason: Heartburn/Nausea Divalproex Sodium (Divalproex Sodium Er 500 Mg Tab.Er.24h) 1,500 mg PO BEDTIME [facility] Last Admin: 08/04/22 23:35 Dose: Not Given Folic Acid (Folic Acid 1 Mg Tablet) 1 mg PO DAILY [facility] Last Admin: 08/11/22 09:45 Dose: 1 mg Hydroxyzine HCl (Hydroxyzine Hcl 25 Mg Tablet) 25 mg PO Q6H PRN PRN Reason: Anxiety Lamotrigine (Lamotrigine 100 Mg Tablet) 200 mg PO BID [facility] Last Admin: 08/05/22 11:09 Dose: Not Given Magnesium Hydroxide (Milk Of Magnesia 30 Ml Oral.Susp) 30 ml PO DAILY PRN PRN Reason: Constipation Nicotine Polacrilex (Nicotine Polacrilex 2 Mg Gum) 4 mg BUCCAL Q2H PRN PRN Reason: Nicotine Cravings Quetiapine Fumarate (Quetiapine Fumarate 50 Mg Tablet) 150 mg PO BID PRN PRN Reason: agitation or insomnia Last Admin: 08/09/22 23:42 Dose: 150 mg Quetiapine Fumarate (Quetiapine Fumarate 50 Mg Tablet) 150 mg PO DAILY@2200 [facility] Last Admin: 08/10/22 22:05 Dose: 150 mg Thiamine HCl (Thiamine Hcl 100 Mg Tablet) 100 mg PO DAILY [facility] Last Admin: 08/11/22 09:45 Dose: 100 mg Trazodone HCl (Trazodone Hcl 50 Mg Tablet) 50 mg PO BEDTIME PRN PRN Reason: Insomnia Allergies Allergies Allergy/AdvReac Type Severity Reaction Status Date / Time carbamazepine Allergy Unknown Verified 08/04/22 16:45 haloperidol [From Haldol] AdvReac Vomiting Verified 08/03/22 19:32 Assessment & Plan Assessment & Plan (1) CKD (chronic kidney disease) stage 3, GFR 30-59 ml/min: Status: Acute Code(s): N18.30 - Chronic kidney disease, stage 3 unspecified Assessment and Plan: pt has stage III chronic kidney disease. 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 The renal function has been relatively stable. He has no overt signs or symptoms of diabetes insipidus. Ideally i would prefer to avoid restarting lithium. There is a risk of ongoing renal injury from lithium. However it appears that this is only drug that seems to be working for him. The risks and benefits were explained to the patient and he is willing to restart lithium. At this point , lithium can be restarted cautiously and monitor his serum sodium and serum creatinine closely?at least once a month. If he starts developing polyuria or hypernatremia or if creatinine increases then we should discontinue Ruth and revisit the use of lithium. (2) Greta: Status: Acute Code(s): F30.9 - Manic episode, unspecified Plan encourage to restart meds. T/C lithium; would require renal involvement. 08/06/22 No interest in medication ? Observe, Educate, Support in re-starting a treatment plan. 08/07/22 Clonidine 0.1 mg bid for blood pressure mgt and mgt of anxiety-pt refused. Using Seroquel which helped to decrease BP. 08/08/22- Discontinue clonidine. Continue current plan of care. 08/09: continue current mgmt.? ask renal to weigh-in on restarting lithium. 08/10: per renal, may restart lithium if it is the only option for treatment; close monitoring of renal function in that case mandatory with low threshold for lowering/DCing lithium if renal damage should become evident.? pt appears uninterested in this option at present.? no change in presentation.? seroquel 150 mg scheduled at HS.? otherwise continue current mgmt. 08/11: remains psychotic, poor insight. no interest in changing regimen at present. I spent ___25___ minutes with the patient and/or on the patient floor today, greater than?50% of which was spent counseling/coordinating care. Reason for contiued inpatient stay Substantial Risk for: rapid decompensation
[2022-08-11] MEDS: QUEtiapine Fumarate 50 MG TABLET 150 MG PO (21:59)
[2022-08-11 22:03] VITALS: BP 141/79; PULSE 69; TEMP 36.7; O2SAT 100
[2022-08-12 08:00] VITALS: BP 135/68; PULSE 59; TEMP 36.6; O2SAT 97
[2022-08-12] MEDS: Folic Acid 1 MG TABLET PO (08:45)
[2022-08-12] MEDS: Thiamine HCL 100 MG TABLET PO (08:45)
--- NOTE | 2022-08-12 17:19 | HO.PSYCHPN ---
Subjective Subjective Date of Service: 08/12/22 Reason For Visit: greta Subjective Notes: Yanes Warning Interim History: Spoke with pt's team. I spoke with pt this evening. Says he is feeling really well with meds. Says his sleep is good, sleeping very soundly. Energy is pretty good. He liked chair yoga today, stretching all day. Mood is consistent, not up, not down and he felt happy a couple times. Denies questions or concerns. Medication Compliance: Yes Side effects from medications: No Attending Groups: Yes Review of Systems Acute medical concerns: No Medical Review of Systems: unchanged Mental Status Exam Mental Status Exam Narrative: adequately dressed and groomed.? talking softly to himself while in milieu.? cooperative and friendly.? speech clipped but otherwise nml in rate, amount, loudness, latency.? flattened tone.? thoughts linear and logical in very superficial conversation, disorganized and confabulatory in more detailed conversation.? vague, evasive.? affect constricted, hypo-intense, non-labile.? no SI/HI/AVH expressed. Diagnostics Vital Signs (24Hr): Vital Signs - 24 hr 08/11/22 22:03 08/12/22 08:00 Temperature 98.0 F 97.8 F Pulse Rate 69 59 Blood Pressure 141/79 H 135/68 Pulse Oximetry 100 97 Oxygen Delivery Method Room Air Room Air BMI result Body Mass Index 29.7 Labs Results: 08/03/22 20:31 08/05/22 07:44 Medications Medications Current Medications Acetaminophen (Acetaminophen 325 Mg Tablet) 650 mg PO Q6H PRN PRN Reason: Headache/Pain Mild Scale (1-3) Al Hydroxide/Mg Hydroxide (Magnesium Hydrox/Alum Hydrox 30 Ml Oral.Susp) 30 ml PO Q6H PRN PRN Reason: Heartburn/Nausea Divalproex Sodium (Divalproex Sodium Er 500 Mg Tab.Er.24h) 1,500 mg PO BEDTIME [facility] Last Admin: 08/04/22 23:35 Dose: Not Given Folic Acid (Folic Acid 1 Mg Tablet) 1 mg PO DAILY [facility] Last Admin: 08/12/22 08:45 Dose: 1 mg Hydroxyzine HCl (Hydroxyzine Hcl 25 Mg Tablet) 25 mg PO Q6H PRN PRN Reason: Anxiety Lamotrigine (Lamotrigine 100 Mg Tablet) 200 mg PO BID [facility] Last Admin: 08/05/22 11:09 Dose: Not Given Magnesium Hydroxide (Milk Of Magnesia 30 Ml Oral.Susp) 30 ml PO DAILY PRN PRN Reason: Constipation Nicotine Polacrilex (Nicotine Polacrilex 2 Mg Gum) 4 mg BUCCAL Q2H PRN PRN Reason: Nicotine Cravings Quetiapine Fumarate (Quetiapine Fumarate 50 Mg Tablet) 150 mg PO BID PRN PRN Reason: agitation or insomnia Last Admin: 08/09/22 23:42 Dose: 150 mg Quetiapine Fumarate (Quetiapine Fumarate 50 Mg Tablet) 150 mg PO DAILY@2200 [facility] Last Admin: 08/11/22 21:59 Dose: 150 mg Thiamine HCl (Thiamine Hcl 100 Mg Tablet) 100 mg PO DAILY [facility] Last Admin: 08/12/22 08:45 Dose: 100 mg Trazodone HCl (Trazodone Hcl 50 Mg Tablet) 50 mg PO BEDTIME PRN PRN Reason: Insomnia Allergies Allergies Allergy/AdvReac Type Severity Reaction Status Date / Time carbamazepine Allergy Unknown Verified 08/04/22 16:45 haloperidol [From Haldol] AdvReac Vomiting Verified 08/03/22 19:32 Assessment & Plan Assessment & Plan (1) CKD (chronic kidney disease) stage 3, GFR 30-59 ml/min: Status: Acute Code(s): N18.30 - Chronic kidney disease, stage 3 unspecified Assessment and Plan: pt has stage III chronic kidney disease. 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 The renal function has been relatively stable. He has no overt signs or symptoms of diabetes insipidus. Ideally i would prefer to avoid restarting lithium. There is a risk of ongoing renal injury from lithium. However it appears that this is only drug that seems to be working for him. The risks and benefits were explained to the patient and he is willing to restart lithium. At this point , lithium can be restarted cautiously and monitor his serum sodium and serum creatinine closely?at least once a month. If he starts developing polyuria or hypernatremia or if creatinine increases then we should discontinue [place] and revisit the use of lithium. (2) Greta: Status: Acute Code(s): F30.9 - Manic episode, unspecified Plan encourage to restart meds. T/C lithium; would require renal involvement. 08/06/22 No interest in medication ? Observe, Educate, Support in re-starting a treatment plan. 08/07/22 Clonidine 0.1 mg bid for blood pressure mgt and mgt of anxiety-pt refused. Using Seroquel which helped to decrease BP. 08/08/22- Discontinue clonidine. Continue current plan of care. 08/09: continue current mgmt.? ask renal to weigh-in on restarting lithium. 08/10: per renal, may restart lithium if it is the only option for treatment; close monitoring of renal function in that case mandatory with low threshold for lowering/DCing lithium if renal damage should become evident.? pt appears uninterested in this option at present.? no change in presentation.? seroquel 150 mg scheduled at HS.? otherwise continue current mgmt. 08/11: remains psychotic, poor insight. no interest in changing regimen at present. 08/12: reports benefit on meds, appropriate in conversation I spent minutes with the patient and/or on the patient floor today, greater than?50% of which was spent counseling/coordinating care. Patient educated on: diagnosis, medication risk/benefits and therapeutic strategies Reason for contiued inpatient stay Substantial Risk for: rapid decompensation and med/psych decompensation
[2022-08-12 22:22] VITALS: BP 137/85; PULSE 63; RESP 16; TEMP 36.4; O2SAT 98
[2022-08-12] MEDS: QUEtiapine Fumarate 50 MG TABLET 150 MG PO (22:25)
[2022-08-13 08:30] VITALS: BP 137/78; PULSE 65; RESP 16; TEMP 37; O2SAT 99
[2022-08-13] MEDS: Folic Acid 1 MG TABLET PO (09:19)
[2022-08-13] MEDS: Thiamine HCL 100 MG TABLET PO (09:19)
--- NOTE | 2022-08-13 14:46 | P.PNPSI_ITS ---
Subjective Subjective Date of Service: 08/13/22 Reason For Visit: greta Interim History: calm, coooperative. no change in presentation. taking seroquel at , claiming to sleep well. discuss possibility of early next week discharge. per staff, denies Sx. attending groups. sleeping well, eating well. no behavioral issues. Mental Status Exam Mental Status Exam Narrative: adequately dressed and groomed.? talking softly to himself when alone.? cooperative and friendly.? speech clipped but otherwise nml in rate, amount, loudness, latency.? flattened tone.? thoughts linear and logical in superficial conversation.? vague, evasive.? affect constricted, hypo-intense, non-labile.? no SI/HI/AVH expressed. Diagnostics Vital Signs (24Hr): Vital Signs - 24 hr 08/12/22 22:22 08/13/22 08:30 Temperature 97.6 F 98.6 F Pulse Rate 63 65 Respiratory Rate 16 16 Blood Pressure 137/85 137/78 Pulse Oximetry 98 99 Oxygen Delivery Method Room Air Room Air BMI result Body Mass Index 29.7 Labs Results: 08/03/22 20:31 08/05/22 07:44 Medications Medications Current Medications Acetaminophen (Acetaminophen 325 Mg Tablet) 650 mg PO Q6H PRN PRN Reason: Headache/Pain Mild Scale (1-3) Al Hydroxide/Mg Hydroxide (Magnesium Hydrox/Alum Hydrox 30 Ml Oral.Susp) 30 ml PO Q6H PRN PRN Reason: Heartburn/Nausea Divalproex Sodium (Divalproex Sodium Er 500 Mg Tab.Er.24h) 1,500 mg PO BEDTIME [facility] Last Admin: 08/04/22 23:35 Dose: Not Given Folic Acid (Folic Acid 1 Mg Tablet) 1 mg PO DAILY [facility] Last Admin: 08/13/22 09:19 Dose: 1 mg Hydroxyzine HCl (Hydroxyzine Hcl 25 Mg Tablet) 25 mg PO Q6H PRN PRN Reason: Anxiety Lamotrigine (Lamotrigine 100 Mg Tablet) 200 mg PO BID [facility] Last Admin: 08/05/22 11:09 Dose: Not Given Magnesium Hydroxide (Milk Of Magnesia 30 Ml Oral.Susp) 30 ml PO DAILY PRN PRN Reason: Constipation Nicotine Polacrilex (Nicotine Polacrilex 2 Mg Gum) 4 mg BUCCAL Q2H PRN PRN Reason: Nicotine Cravings Quetiapine Fumarate (Quetiapine Fumarate 50 Mg Tablet) 150 mg PO BID PRN PRN Reason: agitation or insomnia Last Admin: 08/09/22 23:42 Dose: 150 mg Quetiapine Fumarate (Quetiapine Fumarate 50 Mg Tablet) 150 mg PO DAILY@2200 [facility] Last Admin: 08/12/22 22:25 Dose: 150 mg Thiamine HCl (Thiamine Hcl 100 Mg Tablet) 100 mg PO DAILY [facility] Last Admin: 08/13/22 09:19 Dose: 100 mg Trazodone HCl (Trazodone Hcl 50 Mg Tablet) 50 mg PO BEDTIME PRN PRN Reason: Insomnia Allergies Allergies Allergy/AdvReac Type Severity Reaction Status Date / Time carbamazepine Allergy Unknown Verified 08/04/22 16:45 haloperidol [From Haldol] AdvReac Vomiting Verified 08/03/22 19:32 Assessment & Plan Assessment & Plan (1) CKD (chronic kidney disease) stage 3, GFR 30-59 ml/min: Status: Acute Code(s): N18.30 - Chronic kidney disease, stage 3 unspecified Assessment and Plan: pt has stage III chronic kidney disease. 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 The renal function has been relatively stable. He has no overt signs or symptoms of diabetes insipidus. Ideally i would prefer to avoid restarting lithium. There is a risk of ongoing renal injury from lithium. However it appears that this is only drug that seems to be working for him. The risks and benefits were explained to the patient and he is willing to restart lithium. At this point , lithium can be restarted cautiously and monitor his serum sodium and serum creatinine closely?at least once a month. If he starts developing polyuria or hypernatremia or if creatinine increases then we should discontinue [place] and revisit the use of lithium. (2) Greta: Status: Acute Code(s): F30.9 - Manic episode, unspecified Plan encourage to restart meds. T/C lithium; would require renal involvement. 08/06/22 No interest in medication ? Observe, Educate, Support in re-starting a treatment plan. 08/07/22 Clonidine 0.1 mg bid for blood pressure mgt and mgt of anxiety-pt refused. Using Seroquel which helped to decrease BP. 08/08/22- Discontinue clonidine. Continue current plan of care. 08/09: continue current mgmt.? ask renal to weigh-in on restarting lithium. 08/10: per renal, may restart lithium if it is the only option for treatment; close monitoring of renal function in that case mandatory with low threshold for lowering/DCing lithium if renal damage should become evident.? pt appears uninterested in this option at present.? no change in presentation.? seroquel 150 mg scheduled at HS.? otherwise continue current mgmt. 08/11: remains psychotic, poor insight. no interest in changing regimen at present. 08/12: reports benefit on meds, appropriate in conversation 08/13: stable presentation. no behavioral concerns. I spent __15____ minutes with the patient and/or on the patient floor today, greater than?50% of which was spent counseling/coordinating care. Reason for contiued inpatient stay Substantial Risk for: inability to function and rapid decompensation
[2022-08-13 23:25] VITALS: BP 192/99; PULSE 63; RESP 18; TEMP 36.1; O2SAT 99
[2022-08-13] MEDS: QUEtiapine Fumarate 50 MG TABLET 150 MG PO (23:28)
[2022-08-14 09:48] VITALS: BP 149/101; PULSE 84; RESP 17; TEMP 36.7; O2SAT 97
[2022-08-14] MEDS: Thiamine HCL 100 MG TABLET PO (09:49)
[2022-08-14] MEDS: Folic Acid 1 MG TABLET PO (09:49)
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
[2022-08-14 21:00] VITALS: BP 142/75; PULSE 82; RESP 18; TEMP 36.7; O2SAT 98
[2022-08-14] MEDS: QUEtiapine Fumarate 50 MG TABLET 150 MG PO (22:56)
[2022-08-15 08:22] VITALS: BP 121/80; PULSE 77; RESP 15; TEMP 36.4; O2SAT 99
[2022-08-15] MEDS: Folic Acid 1 MG TABLET PO (08:47)
[2022-08-15] MEDS: Thiamine HCL 100 MG TABLET PO (08:47)
--- NOTE | 2022-08-15 15:19 | HO.PSYCHPN ---
Subjective Subjective Date of Service: 08/15/22 Reason For Visit: greta Interim History: calm, cooperative. seen in sensory room. c/o sciatica acting up again recently. not feeling ready to go home. states there is high anxiety associated with his being there. states it's a tough living situation. he says, i just don't like it there. , after asking several questions trying to get pt to explain, asks directly, and pt states, i don't want to open that up. he does mention the bedrooms are underground, like a crypt, and that once for several days he was too anxious to even leave his bed there. states he is sleeping well, through the night. Mental Status Exam Mental Status Exam Narrative: adequately dressed and groomed.? cooperative and friendly.? speech clipped but otherwise nml in rate, amount, loudness, latency.? flattened tone.? thoughts tangential, vague, evasive. affect constricted, hypo-intense, non-labile.? no SI/HI/AVH expressed. Diagnostics Vital Signs (24Hr): Vital Signs - 24 hr 08/14/22 21:00 08/15/22 08:22 Temperature 98.1 F 97.5 F Pulse Rate 82 77 Respiratory Rate 18 15 Blood Pressure 142/75 H 121/80 Pulse Oximetry 98 99 Oxygen Delivery Method Room Air Room Air BMI result Body Mass Index 29.7 Labs Results: 08/03/22 20:31 08/05/22 07:44 Medications Medications Current Medications Acetaminophen (Acetaminophen 325 Mg Tablet) 650 mg PO Q6H PRN PRN Reason: Headache/Pain Mild Scale (1-3) Al Hydroxide/Mg Hydroxide (Magnesium Hydrox/Alum Hydrox 30 Ml Oral.Susp) 30 ml PO Q6H PRN PRN Reason: Heartburn/Nausea Divalproex Sodium (Divalproex Sodium Er 500 Mg Tab.Er.24h) 1,500 mg PO BEDTIME [facility] Last Admin: 08/04/22 23:35 Dose: Not Given Folic Acid (Folic Acid 1 Mg Tablet) 1 mg PO DAILY [facility] Last Admin: 08/15/22 08:47 Dose: 1 mg Hydroxyzine HCl (Hydroxyzine Hcl 25 Mg Tablet) 25 mg PO Q6H PRN PRN Reason: Anxiety Lamotrigine (Lamotrigine 100 Mg Tablet) 200 mg PO BID [facility] Last Admin: 08/05/22 11:09 Dose: Not Given Magnesium Hydroxide (Milk Of Magnesia 30 Ml Oral.Susp) 30 ml PO DAILY PRN PRN Reason: Constipation Nicotine Polacrilex (Nicotine Polacrilex 2 Mg Gum) 4 mg BUCCAL Q2H PRN PRN Reason: Nicotine Cravings Quetiapine Fumarate (Quetiapine Fumarate 50 Mg Tablet) 150 mg PO BID PRN PRN Reason: agitation or insomnia Last Admin: 08/09/22 23:42 Dose: 150 mg Quetiapine Fumarate (Quetiapine Fumarate 50 Mg Tablet) 150 mg PO DAILY@2200 [facility] Last Admin: 08/14/22 22:56 Dose: 150 mg Thiamine HCl (Thiamine Hcl 100 Mg Tablet) 100 mg PO DAILY [facility] Last Admin: 08/15/22 08:47 Dose: 100 mg Trazodone HCl (Trazodone Hcl 50 Mg Tablet) 50 mg PO BEDTIME PRN PRN Reason: Insomnia Allergies Allergies Allergy/AdvReac Type Severity Reaction Status Date / Time carbamazepine Allergy Unknown Verified 08/04/22 16:45 haloperidol [From Haldol] AdvReac Vomiting Verified 08/03/22 19:32 Assessment & Plan Assessment & Plan (1) CKD (chronic kidney disease) stage 3, GFR 30-59 ml/min: Status: Acute Code(s): N18.30 - Chronic kidney disease, stage 3 unspecified Assessment and Plan: pt has stage III chronic kidney disease. 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 The renal function has been relatively stable. He has no overt signs or symptoms of diabetes insipidus. Ideally i would prefer to avoid restarting lithium. There is a risk of ongoing renal injury from lithium. However it appears that this is only drug that seems to be working for him. The risks and benefits were explained to the patient and he is willing to restart lithium. At this point , lithium can be restarted cautiously and monitor his serum sodium and serum creatinine closely?at least once a month. If he starts developing polyuria or hypernatremia or if creatinine increases then we should discontinue [place] and revisit the use of lithium. (2) Greta: Status: Acute Code(s): F30.9 - Manic episode, unspecified Plan encourage to restart meds. T/C lithium; would require renal involvement. 08/06/22 No interest in medication ? Observe, Educate, Support in re-starting a treatment plan. 08/07/22 Clonidine 0.1 mg bid for blood pressure mgt and mgt of anxiety-pt refused. Using Seroquel which helped to decrease BP. 08/08/22- Discontinue clonidine. Continue current plan of care. 08/09: continue current mgmt.? ask renal to weigh-in on restarting lithium. 08/10: per renal, may restart lithium if it is the only option for treatment; close monitoring of renal function in that case mandatory with low threshold for lowering/DCing lithium if renal damage should become evident.? pt appears uninterested in this option at present.? no change in presentation.? seroquel 150 mg scheduled at HS.? otherwise continue current mgmt. 08/11: remains psychotic, poor insight. no interest in changing regimen at present. 08/12: reports benefit on meds, appropriate in conversation 08/13: stable presentation. no behavioral concerns. 08/14: quietly psychotic, but behavior in control. 08/15: stable presentation, as yesterday. I spent ___25___ minutes with the patient and/or on the patient floor today, greater than?50% of which was spent counseling/coordinating care. Reason for contiued inpatient stay Substantial Risk for: inability to function and rapid decompensation
[2022-08-15 20:19] VITALS: BP 166/82; PULSE 89; RESP 18; TEMP 36.8; O2SAT 97
[2022-08-15] MEDS: QUEtiapine Fumarate 50 MG TABLET 150 MG PO (22:22)
[2022-08-16 08:43] VITALS: BP 124/89; PULSE 87; RESP 18; TEMP 36.3; O2SAT 97
[2022-08-16] MEDS: Folic Acid 1 MG TABLET PO (08:51)
[2022-08-16] MEDS: Thiamine HCL 100 MG TABLET PO (08:51)
[2022-08-16 11:18] LABS: COVID-19 Test Negative (Negative); IDNOW Serial# 08D9AD1C
--- NOTE | 2022-08-16 14:11 | HO.PSYCHPN ---
Subjective Subjective Date of Service: 08/16/22 Reason For Visit: greta Interim History: calm, cooperative. c/o back spasm last night. states it occurred acutely, then resolved, and he was able to sleep through the night. declined any flexeril, but allowed it to be Rxed PRN. states he is feeling relaxed, calmer, but that the talk of going home had caused him a lot of anxiety yesterday. agrees to begin turning his thoughts toward discharge. per staff, c/o anxiety. 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 slept well, eating well. denies depression. guarded. denies AVH. safe. visible, attending groups, flat preoccupied. some inappropriate sexualized behavior such as asking female staff very personal questions, invading personal space of female staff and on at least one occasion touching, lying on his back in a nook in the milieu thrusting his hips into the air. Mental Status Exam Mental Status Exam Narrative: adequately dressed and groomed.? cooperative and friendly.? speech nml in rate, amount, loudness, latency.? flattened tone.? thoughts vague, evasive. affect constricted, hypo-intense, non-labile.? no SI/HI/AVH expressed. Diagnostics Vital Signs (24Hr): Vital Signs - 24 hr 08/15/22 20:19 08/16/22 08:43 Temperature 98.3 F 97.4 F Pulse Rate 89 87 Respiratory Rate 18 18 Blood Pressure 166/82 H 124/89 Pulse Oximetry 97 97 Oxygen Delivery Method Room Air Room Air BMI result Body Mass Index 29.7 Labs Results: 08/03/22 20:31 08/05/22 07:44 Labs: Laboratory Results - last 48 hr 08/16/22 10:43 COVID-19 ([facility]) Negative COVID-19 Clin Com See Note Medications Medications Current Medications Acetaminophen (Acetaminophen 325 Mg Tablet) 650 mg PO Q6H PRN PRN Reason: Headache/Pain Mild Scale (1-3) Al Hydroxide/Mg Hydroxide (Magnesium Hydrox/Alum Hydrox 30 Ml Oral.Susp) 30 ml PO Q6H PRN PRN Reason: Heartburn/Nausea Cyclobenzaprine HCl (Cyclobenzaprine Hcl 10 Mg Tablet) 10 mg PO TID PRN PRN Reason: back spasm Divalproex Sodium (Divalproex Sodium Er 500 Mg Tab.Er.24h) 1,500 mg PO BEDTIME [facility] Last Admin: 08/04/22 23:35 Dose: Not Given Folic Acid (Folic Acid 1 Mg Tablet) 1 mg PO DAILY [facility] Last Admin: 08/16/22 08:51 Dose: 1 mg Hydroxyzine HCl (Hydroxyzine Hcl 25 Mg Tablet) 25 mg PO Q6H PRN PRN Reason: Anxiety Lamotrigine (Lamotrigine 100 Mg Tablet) 200 mg PO BID [facility] Last Admin: 08/05/22 11:09 Dose: Not Given Magnesium Hydroxide (Milk Of Magnesia 30 Ml Oral.Susp) 30 ml PO DAILY PRN PRN Reason: Constipation Nicotine Polacrilex (Nicotine Polacrilex 2 Mg Gum) 4 mg BUCCAL Q2H PRN PRN Reason: Nicotine Cravings Quetiapine Fumarate (Quetiapine Fumarate 50 Mg Tablet) 150 mg PO BID PRN PRN Reason: agitation or insomnia Last Admin: 08/09/22 23:42 Dose: 150 mg Quetiapine Fumarate (Quetiapine Fumarate 50 Mg Tablet) 150 mg PO DAILY@2200 [facility] Last Admin: 08/15/22 22:22 Dose: 150 mg Thiamine HCl (Thiamine Hcl 100 Mg Tablet) 100 mg PO DAILY [facility] Last Admin: 08/16/22 08:51 Dose: 100 mg Trazodone HCl (Trazodone Hcl 50 Mg Tablet) 50 mg PO BEDTIME PRN PRN Reason: Insomnia Allergies Allergies Allergy/AdvReac Type Severity Reaction Status Date / Time carbamazepine Allergy Unknown Verified 08/04/22 16:45 haloperidol [From Haldol] AdvReac Vomiting Verified 08/03/22 19:32 Assessment & Plan Assessment & Plan (1) CKD (chronic kidney disease) stage 3, GFR 30-59 ml/min: Status: Acute Code(s): N18.30 - Chronic kidney disease, stage 3 unspecified Assessment and Plan: pt has stage III chronic kidney disease. 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 The renal function has been relatively stable. He has no overt signs or symptoms of diabetes insipidus. Ideally i would prefer to avoid restarting lithium. There is a risk of ongoing renal injury from lithium. However it appears that this is only drug that seems to be working for him. The risks and benefits were explained to the patient and he is willing to restart lithium. At this point , lithium can be restarted cautiously and monitor his serum sodium and serum creatinine closely?at least once a month. If he starts developing polyuria or hypernatremia or if creatinine increases then we should discontinue [place] and revisit the use of lithium. (2) Greta: Status: Acute Code(s): F30.9 - Manic episode, unspecified Plan encourage to restart meds. T/C lithium; would require renal involvement. 08/06/22 No interest in medication ? Observe, Educate, Support in re-starting a treatment plan. 08/07/22 Clonidine 0.1 mg bid for blood pressure mgt and mgt of anxiety-pt refused. Using Seroquel which helped to decrease BP. 08/08/22- Discontinue clonidine. Continue current plan of care. 08/09: continue current mgmt.? ask renal to weigh-in on restarting lithium. 08/10: per renal, may restart lithium if it is the only option for treatment; close monitoring of renal function in that case mandatory with low threshold for lowering/DCing lithium if renal damage should become evident.? pt appears uninterested in this option at present.? no change in presentation.? seroquel 150 mg scheduled at HS.? otherwise continue current mgmt. 08/11: remains psychotic, poor insight. no interest in changing regimen at present. 08/12: reports benefit on meds, appropriate in conversation 08/13: stable presentation. no behavioral concerns. 08/14: quietly psychotic, but behavior in control. 08/15: stable presentation, as yesterday. 08/16: stable presentation, as yesterday. extremely hesitant to discharge to home, citing high anxiety there, but will not illuminate us as to why. not accepting meds other than the seroquel 150 mg at HS. I spent ___20___ minutes with the patient and/or on the patient floor today, greater than?50% of which was spent counseling/coordinating care. Reason for contiued inpatient stay Substantial Risk for: harm to self, harm to others, inability to function and rapid decompensation
[2022-08-16 20:00] VITALS: BP 176/95; PULSE 77; RESP 18; TEMP 36.7; O2SAT 98
[2022-08-16] MEDS: QUEtiapine Fumarate 50 MG TABLET 150 MG PO (22:03)
[2022-08-17 08:15] VITALS: BP 130/77; PULSE 85; RESP 18; TEMP 36.3; O2SAT 99
[2022-08-17] MEDS: Folic Acid 1 MG TABLET PO (08:24)
[2022-08-17] MEDS: Thiamine HCL 100 MG TABLET PO (08:24)
[2022-08-17] MEDS: Acetaminophen 325 MG TABLET 650 MG PO (21:46)
[2022-08-17] MEDS: Cyclobenzaprine HCl 10 MG TABLET PO (21:47)
[2022-08-17 21:58] VITALS: BP 183/98; PULSE 82; TEMP 36.7; O2SAT 98
[2022-08-17] MEDS: Trolamine Salicylate 10 % Cream 85 GM TUBE 1 APPL TOPICAL (22:44)
[2022-08-17] MEDS: QUEtiapine Fumarate 50 MG TABLET 150 MG PO (23:24)
--- NOTE | 2022-08-17 23:28 | P.PNPSI_ITS ---
Subjective Subjective Date of Service: 08/18/22 Reason For Visit: greta Subjective Notes: [place]anes Warning Interim History: Met with pt. Reviewed chart. Spoke with pt's team. Per pt, he had a? rough night, I have a lot of tension. Says he has a lot of physical pain. Says he is opening up doors from past trauma and broke collar bone as a kid, hurts so much. Says his muscles are tight due to a lot of anxiety and stress. Discussed using aspercreme.?No other issues or concerns. Medication Compliance: Yes Side effects from medications: No Attending Groups: Intermittent Review of Systems Acute medical concerns: No Medical Review of Systems: unchanged Mental Status Exam Mental Status Exam Narrative: adequately dressed and groomed.? superficially cooperative, but fundamentally not so.? speech nml in rate, decr amount, nml loudness, nml latency.? flattened tone.? thoughts vague, evasive.? affect constricted, hypo-intense, non-labile.? no SI/HI/AVH expressed. Diagnostics Vital Signs (24Hr): Vital Signs - 24 hr 08/17/22 21:58 08/18/22 09:00 Temperature 98.1 F 98.1 F Pulse Rate 82 65 Respiratory Rate 16 Blood Pressure 183/98 H 128/81 Pulse Oximetry 98 95 Oxygen Delivery Method Room Air Room Air BMI result Body Mass Index 29.6 Labs Results: 08/03/22 20:31 08/05/22 07:44 Medications Medications Current Medications Acetaminophen (Acetaminophen 325 Mg Tablet) 650 mg PO Q6H PRN PRN Reason: Headache/Pain Mild Scale (1-3) Last Admin: 08/17/22 21:46 Dose: 650 mg Al Hydroxide/Mg Hydroxide (Magnesium Hydrox/Alum Hydrox 30 Ml Oral.Susp) 30 ml PO Q6H PRN PRN Reason: Heartburn/Nausea Last Admin: 08/18/22 11:29 Dose: 30 ml Cyclobenzaprine HCl (Cyclobenzaprine Hcl 10 Mg Tablet) 10 mg PO TID PRN PRN Reason: back spasm Last Admin: 08/18/22 02:30 Dose: 10 mg Divalproex Sodium (Divalproex Sodium Er 500 Mg Tab.Er.24h) 1,500 mg PO BEDTIME [facility] Last Admin: 08/04/22 23:35 Dose: Not Given Folic Acid (Folic Acid 1 Mg Tablet) 1 mg PO DAILY [facility] Last Admin: 08/18/22 10:12 Dose: 1 mg Hydroxyzine HCl (Hydroxyzine Hcl 25 Mg Tablet) 25 mg PO Q6H PRN PRN Reason: Anxiety Lamotrigine (Lamotrigine 100 Mg Tablet) 200 mg PO BID [facility] Last Admin: 08/05/22 11:09 Dose: Not Given Magnesium Hydroxide (Milk Of Magnesia 30 Ml Oral.Susp) 30 ml PO DAILY PRN PRN Reason: Constipation Nicotine Polacrilex (Nicotine Polacrilex 2 Mg Gum) 4 mg BUCCAL Q2H PRN PRN Reason: Nicotine Cravings Quetiapine Fumarate (Quetiapine Fumarate 50 Mg Tablet) 150 mg PO BID PRN PRN Reason: agitation or insomnia Last Admin: 08/09/22 23:42 Dose: 150 mg Quetiapine Fumarate (Quetiapine Fumarate 50 Mg Tablet) 150 mg PO DAILY@2200 [facility] Last Admin: 08/17/22 23:24 Dose: 150 mg Thiamine HCl (Thiamine Hcl 100 Mg Tablet) 100 mg PO DAILY [facility] Last Admin: 08/18/22 10:12 Dose: 100 mg Trazodone HCl (Trazodone Hcl 50 Mg Tablet) 50 mg PO BEDTIME PRN PRN Reason: Insomnia Trolamine Salicylate (Trolamine Salicylate 10 % Cream 85 Gm Tube) 1 appl TOPICAL BID PRN PRN Reason: back pain Last Admin: 08/17/22 22:44 Dose: 1 appl Allergies Allergies Allergy/AdvReac Type Severity Reaction Status Date / Time carbamazepine Allergy Unknown Verified 08/04/22 16:45 haloperidol [From Haldol] AdvReac Vomiting Verified 08/03/22 19:32 Assessment & Plan Assessment & Plan (1) CKD (chronic kidney disease) stage 3, GFR 30-59 ml/min: Status: Acute Code(s): N18.30 - Chronic kidney disease, stage 3 unspecified Assessment and Plan: pt has stage III chronic kidney disease. 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 The renal function has been relatively stable. He has no overt signs or symptoms of diabetes insipidus. Ideally i would prefer to avoid restarting lithium. There is a risk of ongoing renal injury from lithium. However it appears that this is only drug that seems to be working for him. The risks and benefits were explained to the patient and he is willing to restart lithium. At this point , lithium can be restarted cautiously and monitor his serum sodium and serum creatinine closely?at least once a month. If he starts developing polyuria or hypernatremia or if creatinine increases then we should discontinue [place] and revisit the use of lithium. (2) Greta: Status: Acute Code(s): F30.9 - Manic episode, unspecified Plan encourage to restart meds. T/C lithium; would require renal involvement. 08/06/22 No interest in medication ? Observe, Educate, Support in re-starting a treatment plan. 08/07/22 Clonidine 0.1 mg bid for blood pressure mgt and mgt of anxiety-pt refused. Using Seroquel which helped to decrease BP. 08/08/22- Discontinue clonidine. Continue current plan of care. 08/09: continue current mgmt.? ask renal to weigh-in on restarting lithium. 08/10: per renal, may restart lithium if it is the only option for treatment; close monitoring of renal function in that case mandatory with low threshold for lowering/DCing lithium if renal damage should become evident.? pt appears uninterested in this option at present.? no change in presentation.? seroquel 150 mg scheduled at HS.? otherwise continue current mgmt. 08/11: remains psychotic, poor insight.? no interest in changing regimen at present. 08/12: reports benefit on meds, appropriate in conversation 08/13: stable presentation.? no behavioral concerns. 08/14: quietly psychotic, but behavior in control. 08/15: stable presentation, as yesterday. 08/16: stable presentation, as yesterday.? extremely hesitant to discharge to home, citing high anxiety there, but will not illuminate us as to why.? not accepting meds other than the seroquel 150 mg at HS. 08/17: addition of aspercreme, continues to be sexually inappropriate I spent minutes with the patient and/or on the patient floor today, greater than?50% of which was spent counseling/coordinating care. Patient educated on: diagnosis, medication risk/benefits and therapeutic strategies Reason for contiued inpatient stay Substantial Risk for: med/psych decompensation
[2022-08-18] MEDS: Cyclobenzaprine HCl 10 MG TABLET PO (02:30)
[2022-08-18 07:00] VITALS: BMI 29.6
[2022-08-18 09:00] VITALS: BP 128/81; PULSE 65; RESP 16; TEMP 36.7; O2SAT 95
[2022-08-18] MEDS: Folic Acid 1 MG TABLET PO (10:12)
[2022-08-18] MEDS: Thiamine HCL 100 MG TABLET PO (10:12)
[2022-08-18] MEDS: Magnesium Hydrox/Alum Hydrox 30 ML ORAL.SUSP PO ×2 (11:29→22:06)
--- NOTE | 2022-08-18 13:35 | P.PNPSI_ITS ---
Subjective Subjective Date of Service: 08/18/22 Reason For Visit: greta Interim History: superficial calm and cooperation. however, when being asked challenging questions becomes defensive and ultimately tells MD he can't talk to MD anymore and simply leaves the room. the questions which appeared to make him uncomfortable were asking him to explain his discomfort with sleeping in the room with another male and asking him about his sexualized behaviors on the unit. he explained only that sleeping in a room with another male involved too much testosterone and refused to explain further. on being asked about his writing to the woman who loves me on a piece of coloring he did and passing it to a female peer (apparently unsolicited and unwanted), he replied he is trying to escape pain through love, then shortly exited the room as MD asked follow-up questions attempting to clarify his meaning. per staff, engaging in self- dialogue, poor boundaries with female peers, bizarre positioning which seems to leave him in pain, talking about making molotov cocktails with a friend long ago and jumping on them to put out the fire. up and down throughout the night, appearing to sleep very little. Mental Status Exam Mental Status Exam Narrative: adequately dressed and groomed.? superficially cooperative, but fundamentally not so.? speech nml in rate, decr amount, nml loudness, nml latency.? flattened tone.? thoughts vague, evasive. affect constricted, hypo-intense, non-labile.? no SI/HI/AVH expressed. Diagnostics Vital Signs (24Hr): Vital Signs - 24 hr 08/17/22 21:58 08/18/22 09:00 Temperature 98.1 F 98.1 F Pulse Rate 82 65 Respiratory Rate 16 Blood Pressure 183/98 H 128/81 Pulse Oximetry 98 95 Oxygen Delivery Method Room Air Room Air BMI result Body Mass Index 29.7 Labs Results: 08/03/22 20:31 08/05/22 07:44 Medications Medications Current Medications Acetaminophen (Acetaminophen 325 Mg Tablet) 650 mg PO Q6H PRN PRN Reason: Headache/Pain Mild Scale (1-3) Last Admin: 08/17/22 21:46 Dose: 650 mg Al Hydroxide/Mg Hydroxide (Magnesium Hydrox/Alum Hydrox 30 Ml Oral.Susp) 30 ml PO Q6H PRN PRN Reason: Heartburn/Nausea Last Admin: 08/18/22 11:29 Dose: 30 ml Cyclobenzaprine HCl (Cyclobenzaprine Hcl 10 Mg Tablet) 10 mg PO TID PRN PRN Reason: back spasm Last Admin: 08/18/22 02:30 Dose: 10 mg Divalproex Sodium (Divalproex Sodium Er 500 Mg Tab.Er.24h) 1,500 mg PO BEDTIME [facility] Last Admin: 08/04/22 23:35 Dose: Not Given Folic Acid (Folic Acid 1 Mg Tablet) 1 mg PO DAILY [facility] Last Admin: 08/18/22 10:12 Dose: 1 mg Hydroxyzine HCl (Hydroxyzine Hcl 25 Mg Tablet) 25 mg PO Q6H PRN PRN Reason: Anxiety Lamotrigine (Lamotrigine 100 Mg Tablet) 200 mg PO BID [facility] Last Admin: 08/05/22 11:09 Dose: Not Given Magnesium Hydroxide (Milk Of Magnesia 30 Ml Oral.Susp) 30 ml PO DAILY PRN PRN Reason: Constipation Nicotine Polacrilex (Nicotine Polacrilex 2 Mg Gum) 4 mg BUCCAL Q2H PRN PRN Reason: Nicotine Cravings Quetiapine Fumarate (Quetiapine Fumarate 50 Mg Tablet) 150 mg PO BID PRN PRN Reason: agitation or insomnia Last Admin: 08/09/22 23:42 Dose: 150 mg Quetiapine Fumarate (Quetiapine Fumarate 50 Mg Tablet) 150 mg PO DAILY@2200 [facility] Last Admin: 08/17/22 23:24 Dose: 150 mg Thiamine HCl (Thiamine Hcl 100 Mg Tablet) 100 mg PO DAILY [facility] Last Admin: 08/18/22 10:12 Dose: 100 mg Trazodone HCl (Trazodone Hcl 50 Mg Tablet) 50 mg PO BEDTIME PRN PRN Reason: Insomnia Trolamine Salicylate (Trolamine Salicylate 10 % Cream 85 Gm Tube) 1 appl TOPICAL BID PRN PRN Reason: back pain Last Admin: 08/17/22 22:44 Dose: 1 appl Allergies Allergies Allergy/AdvReac Type Severity Reaction Status Date / Time carbamazepine Allergy Unknown Verified 08/04/22 16:45 haloperidol [From Haldol] AdvReac Vomiting Verified 08/03/22 19:32 Assessment & Plan Assessment & Plan (1) CKD (chronic kidney disease) stage 3, GFR 30-59 ml/min: Status: Acute Code(s): N18.30 - Chronic kidney disease, stage 3 unspecified Assessment and Plan: pt has stage III chronic kidney disease. 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 The renal function has been relatively stable. He has no overt signs or symptoms of diabetes insipidus. Ideally i would prefer to avoid restarting lithium. There is a risk of ongoing renal injury from lithium. However it appears that this is only drug that seems to be working for him. The risks and benefits were explained to the patient and he is willing to restart lithium. At this point , lithium can be restarted cautiously and monitor his serum sodium and serum creatinine closely?at least once a month. If he starts developing polyuria or hypernatremia or if creatinine increases then we should discontinue [place] and revisit the use of lithium. (2) Greta: Status: Acute Code(s): F30.9 - Manic episode, unspecified Plan encourage to restart meds. T/C lithium; would require renal involvement. 08/06/22 No interest in medication ? Observe, Educate, Support in re-starting a treatment plan. 08/07/22 Clonidine 0.1 mg bid for blood pressure mgt and mgt of anxiety-pt refused. Using Seroquel which helped to decrease BP. 08/08/22- Discontinue clonidine. Continue current plan of care. 08/09: continue current mgmt.? ask renal to weigh-in on restarting lithium. 08/10: per renal, may restart lithium if it is the only option for treatment; close monitoring of renal function in that case mandatory with low threshold for lowering/DCing lithium if renal damage should become evident.? pt appears uninterested in this option at present.? no change in presentation.? seroquel 150 mg scheduled at HS.? otherwise continue current mgmt. 08/11: remains psychotic, poor insight. no interest in changing regimen at present. 08/12: reports benefit on meds, appropriate in conversation 08/13: stable presentation. no behavioral concerns. 08/14: quietly psychotic, but behavior in control. 08/15: stable presentation, as yesterday. 08/16: stable presentation, as yesterday. extremely hesitant to discharge to home, citing high anxiety there, but will not illuminate us as to why. not accepting meds other than the seroquel 150 mg at HS. 08/18: poor boundaries with female peers, passed a note to one suggesting she loves him, poor sleep, vague and evasive. remains taking only seroquel 150 mg at HS. I spent __20____ minutes with the patient and/or on the patient floor today, greater than?50% of which was spent counseling/coordinating care. Reason for contiued inpatient stay Substantial Risk for: rapid decompensation
[2022-08-18 21:52] VITALS: BP 150/81; PULSE 73; RESP 18; TEMP 36.6; O2SAT 97
[2022-08-18] MEDS: QUEtiapine Fumarate 50 MG TABLET 150 MG PO (22:05)
[2022-08-18] MEDS: Acetaminophen 325 MG TABLET 650 MG PO (22:05)
[2022-08-18] MEDS: Trolamine Salicylate 10 % Cream 85 GM TUBE 1 APPL TOPICAL (22:06)
[2022-08-19 08:40] VITALS: BP 122/82; PULSE 73; RESP 16; TEMP 36.3; O2SAT 95
[2022-08-19] MEDS: Thiamine HCL 100 MG TABLET PO (08:49)
[2022-08-19] MEDS: Folic Acid 1 MG TABLET PO (08:49)
--- NOTE | 2022-08-19 13:06 | P.PNPSI_ITS ---
Subjective Subjective Date of Service: 08/19/22 Reason For Visit: greta Interim History: calm, cooperative, superficially, anyway. appears disheveled today. hair mussed, mei growing in. MD notes per staff he is sleeping poorly. pt acknowledges the fact, not at all concerned. MD suggests pt needs proper mood stabilizer, pt shrugs it off. pt states he has requested a different doctor here so he can get a second opinion. states he plans to stop seroquel, c/o dry eyes from it. states he is suing [facility] for a lot of things. per staff, self- dialoguing during the day. agitated talking to self in sensory room, even yellingat times. overnight making odd noises in the milieu, almost sexual in nature. slept about 3 hours overnight. tremor in hands B/L. OT has stopped including him in groups due to his disruptive sexualized talk. Mental Status Exam Mental Status Exam Narrative: adequately dressed, disheveled and unkempt.? superficially cooperative, but fundamentally not so.? speech nml in rate, decr amount, nml loudness, nml latency.? flattened tone.? thoughts vague, evasive.? affect constricted, hypo- intense, non-labile.? no SI/HI/AVH expressed. Diagnostics Vital Signs (24Hr): Vital Signs - 24 hr 08/18/22 21:52 08/19/22 08:40 Temperature 98 F 97.4 F Pulse Rate 73 73 Respiratory Rate 18 16 Blood Pressure 150/81 H 122/82 Pulse Oximetry 97 95 Oxygen Delivery Method Room Air Room Air BMI result Body Mass Index 29.6 Labs Results: 08/03/22 20:31 08/05/22 07:44 Medications Medications Current Medications Acetaminophen (Acetaminophen 325 Mg Tablet) 650 mg PO Q6H PRN PRN Reason: Headache/Pain Mild Scale (1-3) Last Admin: 08/18/22 22:05 Dose: 650 mg Al Hydroxide/Mg Hydroxide (Magnesium Hydrox/Alum Hydrox 30 Ml Oral.Susp) 30 ml PO Q6H PRN PRN Reason: Heartburn/Nausea Last Admin: 08/18/22 22:06 Dose: 30 ml Artificial Tears (Artificial Tears 15 Ml Drops) 2 drop EYE-BOTH Q4H PRN PRN Reason: Dry Eyes Cyclobenzaprine HCl (Cyclobenzaprine Hcl 10 Mg Tablet) 10 mg PO TID PRN PRN Reason: back spasm Last Admin: 08/18/22 02:30 Dose: 10 mg Divalproex Sodium (Divalproex Sodium Er 500 Mg Tab.Er.24h) 1,500 mg PO BEDTIME COUNT [facility] Last Admin: 08/04/22 23:35 Dose: Not Given Folic Acid (Folic Acid 1 Mg Tablet) 1 mg PO DAILY COUNT INCLUDES [facility] Last Admin: 08/19/22 08:49 Dose: 1 mg Hydroxyzine HCl (Hydroxyzine Hcl 25 Mg Tablet) 25 mg PO Q6H PRN PRN Reason: Anxiety Lamotrigine (Lamotrigine 100 Mg Tablet) 200 mg PO BID COUNT [facility]CLUDES [facility] Last Admin: 08/05/22 11:09 Dose: Not Given Magnesium Hydroxide (Milk Of Magnesia 30 Ml Oral.Susp) 30 ml PO DAILY PRN PRN Reason: Constipation Nicotine Polacrilex (Nicotine Polacrilex 2 Mg Gum) 4 mg BUCCAL Q2H PRN PRN Reason: Nicotine Cravings Quetiapine Fumarate (Quetiapine Fumarate 50 Mg Tablet) 150 mg PO BID PRN PRN Reason: agitation or insomnia Last Admin: 08/09/22 23:42 Dose: 150 mg Quetiapine Fumarate (Quetiapine Fumarate 50 Mg Tablet) 150 mg PO DAILY@2200 [facility]CLUD[facility] Last Admin: 08/18/22 22:05 Dose: 150 mg Thiamine HCl (Thiamine Hcl 100 Mg Tablet) 100 mg PO DAILY COUNT [facility]CLUDES [facility] Last Admin: 08/19/22 08:49 Dose: 100 mg Trazodone HCl (Trazodone Hcl 50 Mg Tablet) 50 mg PO BEDTIME PRN PRN Reason: Insomnia Trolamine Salicylate (Trolamine Salicylate 10 % Cream 85 Gm Tube) 1 appl TOPICAL BID PRN PRN Reason: back pain Last Admin: 08/18/22 22:06 Dose: 1 appl Allergies Allergies Allergy/AdvReac Type Severity Reaction Status Date / Time carbamazepine Allergy Unknown Verified 08/04/22 16:45 haloperidol [From Haldol] AdvReac Vomiting Verified 08/03/22 19:32 Assessment & Plan Assessment & Plan (1) CKD (chronic kidney disease) stage 3, GFR 30-59 ml/min: Status: Acute Code(s): N18.30 - Chronic kidney disease, stage 3 unspecified Assessment and Plan: pt has stage III chronic kidney disease. 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 The renal function has been relatively stable. He has no overt signs or symptoms of diabetes insipidus. Ideally i would prefer to avoid restarting lithium. There is a risk of ongoing renal injury from lithium. However it appears that this is only drug that seems to be working for him. The risks and benefits were explained to the patient and he is willing to restart lithium. At this point , lithium can be restarted cautiously and monitor his serum sodium and serum creatinine closely?at least once a month. If he starts developing polyuria or hypernatremia or if creatinine increases then we should discontinue [place] and revisit the use of lithium. (2) Greta: Status: Acute Code(s): F30.9 - Manic episode, unspecified Plan encourage to restart meds. T/C lithium; would require renal involvement. 08/06/22 No interest in medication ? Observe, Educate, Support in re-starting a treatment plan. 08/07/22 Clonidine 0.1 mg bid for blood pressure mgt and mgt of anxiety-pt refused. Using Seroquel which helped to decrease BP. 08/08/22- Discontinue clonidine. Continue current plan of care. 08/09: continue current mgmt.? ask renal to weigh-in on restarting lithium. 08/10: per renal, may restart lithium if it is the only option for treatment; close monitoring of renal function in that case mandatory with low threshold for lowering/DCing lithium if renal damage should become evident.? pt appears uninterested in this option at present.? no change in presentation.? seroquel 150 mg scheduled at HS.? otherwise continue current mgmt. 08/11: remains psychotic, poor insight.? no interest in changing regimen at present. 08/12: reports benefit on meds, appropriate in conversation 08/13: stable presentation.? no behavioral concerns. 08/14: quietly psychotic, but behavior in control. 08/15: stable presentation, as yesterday. 08/16: stable presentation, as yesterday.? extremely hesitant to discharge to home, citing high anxiety there, but will not illuminate us as to why.? not accepting meds other than the seroquel 150 mg at HS. 08/17: addition of aspercreme, continues to be sexually inappropriate 08/18: poor boundaries with female peers, passed a note to one suggesting she loves him, poor sleep, vague and evasive.? remains taking only seroquel 150 mg at HS. 08/19: talking about stopping seroquel. appears more unkempt and disheveled than prior. asking for different MD. MD tells him he needs to take mood sta bilizer. will begin to offer VPA. I spent __25____ minutes with the patient and/or on the patient floor today, greater than?50% of which was spent counseling/coordinating care. Reason for contiued inpatient stay Substantial Risk for: harm to self, harm to others, inability to function and rapid decompensation
[2022-08-19 21:32] VITALS: BP 146/77; PULSE 74; RESP 18; TEMP 36.4; O2SAT 97
[2022-08-19] MEDS: Acetaminophen 325 MG TABLET 650 MG PO (21:47)
[2022-08-19] MEDS: QUEtiapine Fumarate 50 MG TABLET 150 MG PO (23:04)
[2022-08-20] MEDS: Trolamine Salicylate 10 % Cream 85 GM TUBE 1 APPL TOPICAL (01:09)
--- NOTE | 2022-08-20 08:48 | P.PNPSI_ITS ---
Subjective Subjective Date of Service: 08/20/22 Reason For Visit: greta Subjective Notes: Conditional Voluntary Healthcare Proxy: No Guardianship: No Medical Problems Affecting Mental Status: No Interim History: Patient was seen and discussed in rounds today. Records and plans were reviewed. He has been generally noncompliant with medications. Had been complaining of dry eye from Seroquel was refusing the eyedrops. He was started on Depakote but refused did also. He continues to be responding to internal stimuli he has been sexually inappropriate at times. He can be prone to viole nce. He was pleasant in my contact with him and stated that he did not want to take a mood stabilizer. No SI. No episodes of agitation or aggression. No changes were made today Medication Compliance: Yes Side effects from medications: No Attending Groups: Intermittent Review of Systems Constitutional: Denies anorexia and Denies fatigue Eyes: Reports no additional eye complaints Denies dizziness and Denies epistaxis Cardiovascular: Denies Abdominal Distension and Denies diaphoresis Respiratory: Denies chest congestion and Denies hemoptysis Gastrointestinal: Denies change in bowel habits, Denies dyspepsia and Denies vomiting Genitourinary: Denies hematuria, Denies dysuria, Denies urinary frequency, Denies urinary incontinence and Denies urinary urgency Musculoskeletal: Denies numbness Reports Abnormal speech present, Denies dizziness, Denies focal weakness, Denies numbness and Denies paresthesias Endocrine: Denies fatigue Mental Status Exam Mental Status Exam Narrative: In today's visit he is alert, oriented and pleasant. Normal speech. Moderate eye contact. Affect is constricted. He home denies any hallucinations but is responding to internal stimuli and has self dialogue. No SI. Cognitively is grossly intact and preoccupied. Judgment is hard to assess Diagnostics Vital Signs (24Hr): Vital Signs - 24 hr 08/19/22 21:32 Temperature 97.6 F Pulse Rate 74 Respiratory Rate 18 Blood Pressure 146/77 H Pulse Oximetry 97 Oxygen Delivery Method Room Air BMI result Body Mass Index 29.6 Labs Results: 08/03/22 20:31 08/05/22 07:44 Medications Medications Current Medications Acetaminophen (Acetaminophen 325 Mg Tablet) 650 mg PO Q6H PRN PRN Reason: Headache/Pain Mild Scale (1-3) Last Admin: 08/19/22 21:47 Dose: 650 mg Al Hydroxide/Mg Hydroxide (Magnesium Hydrox/Alum Hydrox 30 Ml Oral.Susp) 30 ml PO Q6H PRN PRN Reason: Heartburn/Nausea Last Admin: 08/18/22 22:06 Dose: 30 ml Artificial Tears (Artificial Tears 15 Ml Drops) 2 drop EYE-BOTH Q4H PRN PRN Reason: Dry Eyes Cyclobenzaprine HCl (Cyclobenzaprine Hcl 10 Mg Tablet) 10 mg PO TID PRN PRN Reason: back spasm Last Admin: 08/18/22 02:30 Dose: 10 mg Divalproex Sodium (Divalproex Sodium Er 500 Mg Tab.Er.24h) 1,500 mg PO BEDTIME [facility] Last Admin: 08/19/22 23:06 Dose: Not Given Folic Acid (Folic Acid 1 Mg Tablet) 1 mg PO DAILY [facility] Last Admin: 08/19/22 08:49 Dose: 1 mg Hydroxyzine HCl (Hydroxyzine Hcl 25 Mg Tablet) 25 mg PO Q6H PRN PRN Reason: Anxiety Lamotrigine (Lamotrigine 100 Mg Tablet) 200 mg PO BID [facility] Last Admin: 08/05/22 11:09 Dose: Not Given Magnesium Hydroxide (Milk Of Magnesia 30 Ml Oral.Susp) 30 ml PO DAILY PRN PRN Reason: Constipation Nicotine Polacrilex (Nicotine Polacrilex 2 Mg Gum) 4 mg BUCCAL Q2H PRN PRN Reason: Nicotine Cravings Quetiapine Fumarate (Quetiapine Fumarate 50 Mg Tablet) 150 mg PO BID PRN PRN Reason: agitation or insomnia Last Admin: 08/09/22 23:42 Dose: 150 mg Quetiapine Fumarate (Quetiapine Fumarate 50 Mg Tablet) 150 mg PO DAILY@2200 [facility] Last Admin: 08/19/22 23:04 Dose: 150 mg Thiamine HCl (Thiamine Hcl 100 Mg Tablet) 100 mg PO DAILY [facility] Last Admin: 08/19/22 08:49 Dose: 100 mg Trazodone HCl (Trazodone Hcl 50 Mg Tablet) 50 mg PO BEDTIME PRN PRN Reason: Insomnia Trolamine Salicylate (Trolamine Salicylate 10 % Cream 85 Gm Tube) 1 appl TOPICAL BID PRN PRN Reason: back pain Last Admin: 08/20/22 01:09 Dose: 1 appl Allergies Allergies Allergy/AdvReac Type Severity Reaction Status Date / Time carbamazepine Allergy Unknown Verified 08/04/22 16:45 haloperidol [From Haldol] AdvReac Vomiting Verified 08/03/22 19:32 Assessment & Plan Assessment & Plan (1) CKD (chronic kidney disease) stage 3, GFR 30-59 ml/min: Status: Acute Code(s): N18.30 - Chronic kidney disease, stage 3 unspecified Assessment and Plan: pt has stage III chronic kidney disease. 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 The renal function has been relatively stable. He has no overt signs or symptoms of diabetes insipidus. Ideally i would prefer to avoid restarting lithium. There is a risk of ongoing renal injury from lithium. However it appears that this is only drug that seems to be working for him. The risks and benefits were explained to the patient and he is willing to restart lithium. At this point , lithium can be restarted cautiously and monitor his serum sodium and serum creatinine closely?at least once a month. If he starts developing polyuria or hypernatremia or if creatinine increases then we should discontinue [place] and revisit the use of lithium. (2) Greta: Status: Acute Code(s): F30.9 - Manic episode, unspecified Plan encourage to restart meds. T/C lithium; would require renal involvement. 08/06/22 No interest in medication ? Observe, Educate, Support in re-starting a treatment plan. 08/07/22 Clonidine 0.1 mg bid for blood pressure mgt and mgt of anxiety-pt refu sed. Using Seroquel which helped to decrease BP. 08/08/22- Discontinue clonidine. Continue current plan of care. 08/09: continue current mgmt.? ask renal to weigh-in on restarting lithium. 08/10: per renal, may restart lithium if it is the only option for treatment; close monitoring of renal function in that case mandatory with low threshold for lowering/DCing lithium if renal damage should become evident.? pt appears uninterested in this option at present.? no change in presentation.? seroquel 150 mg scheduled at HS.? otherwise continue current mgmt. 08/11: remains psychotic, poor insight.? no interest in changing regimen at present. 08/12: reports benefit on meds, appropriate in conversation 08/13: stable presentation.? no behavioral concerns. 08/14: quietly psychotic, but behavior in control. 08/15: stable presentation, as yesterday. 08/16: stable presentation, as yesterday.? extremely hesitant to discharge to home, citing high anxiety there, but will not illuminate us as to why.? not accepting meds other than the seroquel 150 mg at HS. 08/17: addition of aspercreme, continues to be sexually inappropriate 08/18: poor boundaries with female peers, passed a note to one suggesting she loves him, poor sleep, vague and evasive.? remains taking only seroquel 150 mg at HS. 08/19: talking about stopping seroquel. appears more unkempt and disheveled than prior. asking for different MD. MD tells him he needs to take mood stabilizer. will begin to offer VPA. 08/20: Continue current regimen and plans. Restart of [place] is being considered in spite of his chronic kidney disease and status I spent minutes with the patient and/or on the patient floor today, greater than?50% of which was spent counseling/coordinating care. Patient educated on: medication risk/benefits Reason for contiued inpatient stay Substantial Risk for: med/psych decompensation
[2022-08-20] MEDS: Thiamine HCL 100 MG TABLET PO (09:03)
[2022-08-20] MEDS: Folic Acid 1 MG TABLET PO (09:03)
[2022-08-20 09:09] VITALS: BP 132/66; PULSE 73; RESP 18; TEMP 36.4; O2SAT 96
[2022-08-20 21:30] VITALS: BP 150/93; PULSE 59; RESP 16; TEMP 36.6; O2SAT 99
[2022-08-20] MEDS: QUEtiapine Fumarate 50 MG TABLET 150 MG PO (21:50)
[2022-08-21] MEDS: Cyclobenzaprine HCl 10 MG TABLET PO (00:32)
[2022-08-21] MEDS: Trolamine Salicylate 10 % Cream 85 GM TUBE 1 APPL TOPICAL (00:37)
[2022-08-21 06:00] VITALS: BP 126/79; PULSE 60; RESP 18; TEMP 36.4; O2SAT 99
--- NOTE | 2022-08-21 09:19 | HO.PSYCHPN ---
Subjective Subjective Date of Service: 08/21/22 Reason For Visit: greta Subjective Notes: Conditional Voluntary Healthcare Proxy: No Guardianship: No Medical Problems Affecting Mental Status: No Interim History: Patient was seen and discussed in rounds today. Records and plans were reviewed. He continues to be mostly guarded and isolative. He complains of generalized body pain. Continues to have self dialogue and response to internal stimuli. He is still refusing Depakote, ?I do not want to get dependent on anything?. I tried to explain to him the reason for new the Depakote since he no longer can take lithium because of his kidneys. He understood that but still wants to refuse. Eating and sleeping adequately. No changes were made today Medication Compliance: Yes Side effects from medications: No Attending Groups: Intermittent Review of Systems Constitutional: Denies anorexia and Denies fatigue Eyes: Reports no additional eye complaints Denies dizziness and Denies epistaxis Cardiovascular: Denies Abdominal Distension and Denies diaphoresis Respiratory: Denies chest congestion and Denies hemoptysis Gastrointestinal: Denies change in bowel habits, Denies dyspepsia and Denies vomiting Genitourinary: Denies hematuria, Denies dysuria, Denies urinary frequency, Denies urinary incontinence and Denies urinary urgency Musculoskeletal: Denies numbness Reports Abnormal speech present, Denies dizziness, Denies focal weakness, Denies numbness and Denies paresthesias Endocrine: Denies fatigue Diagnostics Vital Signs (24Hr): Vital Signs - 24 hr 08/20/22 21:30 Temperature 97.9 F Pulse Rate 59 Respiratory Rate 16 Blood Pressure 150/93 H Pulse Oximetry 99 Oxygen Delivery Method Room Air BMI result Body Mass Index 29.6 Labs Results: 08/03/22 20:31 08/05/22 07:44 Medications Medications Current Medications Acetaminophen (Acetaminophen 325 Mg Tablet) 650 mg PO Q6H PRN PRN Reason: Headache/Pain Mild Scale (1-3) Last Admin: 08/19/22 21:47 Dose: 650 mg Al Hydroxide/Mg Hydroxide (Magnesium Hydrox/Alum Hydrox 30 Ml Oral.Susp) 30 ml PO Q6H PRN PRN Reason: Heartburn/Nausea Last Admin: 08/18/22 22:06 Dose: 30 ml Artificial Tears (Artificial Tears 15 Ml Drops) 2 drop EYE-BOTH Q4H PRN PRN Reason: Dry Eyes Cyclobenzaprine HCl (Cyclobenzaprine Hcl 10 Mg Tablet) 10 mg PO TID PRN PRN Reason: back spasm Last Admin: 08/21/22 00:32 Dose: 10 mg Divalproex Sodium (Divalproex Sodium Er 500 Mg Tab.Er.24h) 1,500 mg PO BEDTIME [facility] Last Admin: 08/20/22 21:52 Dose: Not Given Folic Acid (Folic Acid 1 Mg Tablet) 1 mg PO DAILY [facility] Last Admin: 08/20/22 09:03 Dose: 1 mg Hydroxyzine HCl (Hydroxyzine Hcl 25 Mg Tablet) 25 mg PO Q6H PRN PRN Reason: Anxiety Lamotrigine (Lamotrigine 100 Mg Tablet) 200 mg PO BID [facility] Last Admin: 08/05/22 11:09 Dose: Not Given Magnesium Hydroxide (Milk Of Magnesia 30 Ml Oral.Susp) 30 ml PO DAILY PRN PRN Reason: Constipation Nicotine Polacrilex (Nicotine Polacrilex 2 Mg Gum) 4 mg BUCCAL Q2H PRN PRN Reason: Nicotine Cravings Quetiapine Fumarate (Quetiapine Fumarate 50 Mg Tablet) 150 mg PO BID PRN PRN Reason: agitation or insomnia Last Admin: 08/09/22 23:42 Dose: 150 mg Quetiapine Fumarate (Quetiapine Fumarate 50 Mg Tablet) 150 mg PO DAILY@2200 [facility] Last Admin: 08/20/22 21:50 Dose: 150 mg Thiamine HCl (Thiamine Hcl 100 Mg Tablet) 100 mg PO DAILY [facility] Last Admin: 08/20/22 09:03 Dose: 100 mg Trazodone HCl (Trazodone Hcl 50 Mg Tablet) 50 mg PO BEDTIME PRN PRN Reason: Insomnia Trolamine Salicylate (Trolamine Salicylate 10 % Cream 85 Gm Tube) 1 appl TOPICAL BID PRN PRN Reason: back pain Last Admin: 08/21/22 00:37 Dose: 1 appl Allergies Allergies Allergy/AdvReac Type Severity Reaction Status Date / Time carbamazepine Allergy Unknown Verified 08/04/22 16:45 haloperidol [From Haldol] AdvReac Vomiting Verified 08/03/22 19:32 Assessment & Plan Assessment & Plan (1) CKD (chronic kidney disease) stage 3, GFR 30-59 ml/min: Status: Acute Code(s): N18.30 - Chronic kidney disease, stage 3 unspecified Assessment and Plan: pt has stage III chronic kidney disease. 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 The renal function has been relatively stable. He has no overt signs or symptoms of diabetes insipidus. Ideally i would prefer to avoid restarting lithium. There is a risk of ongoing renal injury from lithium. However it appears that this is only drug that seems to be working for him. The risks and benefits were explained to the patient and he is willing to restart lithium. At this point , lithium can be restarted cautiously and monitor his serum sodium and serum creatinine closely?at least once a month. If he starts developing polyuria or hypernatremia or if creatinine increases then we should discontinue [place] and revisit the use of lithium. (2) Greta: Status: Acute Code(s): F30.9 - Manic episode, unspecified Plan encourage to restart meds. T/C lithium; would require renal involvement. 08/06/22 No interest in medication ? Observe, Educate, Support in re-starting a treatment plan. 08/07/22 Clonidine 0.1 mg bid for blood pressure mgt and mgt of anxiety-pt refused. Using Seroquel which helped to decrease BP. 08/08/22- Discontinue clonidine. Continue current plan of care. 08/09: continue current mgmt.? ask renal to weigh-in on restarting lithium. 08/10: per renal, may restart lithium if it is the only option for treatment; close monitoring of renal function in that case mandatory with low threshold for lowering/DCing lithium if renal damage should become evident.? pt appears uninterested in this option at present.? no change in presentation.? seroquel 150 mg scheduled at HS.? otherwise continue current mgmt. 08/11: remains psychotic, poor insight.? no interest in changing regimen at present. 08/12: reports benefit on meds, appropriate in conversation 08/13: stable presentation.? no behavioral concerns. 08/14: quietly psychotic, but behavior in control. 08/15: stable presentation, as yesterday. 08/16: stable presentation, as yesterday.? extremely hesitant to discharge to home, citing high anxiety there, but will not illuminate us as to why.? not accepting meds other than the seroquel 150 mg at HS. 08/17: addition of aspercreme, continues to be sexually inappropriate 08/18: poor boundaries with female peers, passed a note to one suggesting she loves him, poor sleep, vague and evasive.? remains taking only seroquel 150 mg at HS. 08/19: talking about stopping seroquel. appears more unkempt and disheveled than prior. asking for different MD. MD tells him he needs to take mood stabilizer. will begin to offer VPA. 08/20: Continue current regimen and plans. Restart of Wilson is being considered in spite of his chronic kidney disease and status 08/21: Continue current regimen and plans. It appears that he is not going to be taking the Depakote I spent minutes with the patient and/or on the patient floor today, greater than?50% of which was spent counseling/coordinating care. Patient educated on: medication risk/benefits Reason for contiued inpatient stay Substantial Risk for: med/psych decompensation
[2022-08-21] MEDS: Folic Acid 1 MG TABLET PO (09:21)
[2022-08-21] MEDS: Thiamine HCL 100 MG TABLET PO (09:22)
[2022-08-22] MEDS: Cyclobenzaprine HCl 10 MG TABLET PO ×2 (00:01→23:41)
[2022-08-22] MEDS: QUEtiapine Fumarate 50 MG TABLET 150 MG PO ×2 (00:01→23:40)
[2022-08-22] MEDS: Trolamine Salicylate 10 % Cream 85 GM TUBE 1 APPL TOPICAL (00:37)
[2022-08-22] MEDS: Folic Acid 1 MG TABLET PO (09:18)
[2022-08-22] MEDS: Thiamine HCL 100 MG TABLET PO (09:18)
[2022-08-22 09:53] VITALS: BP 120/78; PULSE 75; RESP 15; TEMP 36.6; O2SAT 96
--- NOTE | 2022-08-22 14:29 | P.PNPSI_ITS ---
Subjective Subjective Date of Service: 08/22/22 Reason For Visit: greta Interim History: pt initially calm and cooperative. once in interview room MD broaches length of stay and that we would be planning to discharge him on this week as he is declining recommended Tx here and does not seem to be progressing. pt becomes agitated and accuses MD of not complying with his request for a new MD. he then stated he is very uncomfortable with me and says, i'm stepping out, quickly exiting the interview room. per collateral from , pt asked her if she could have this grant writer fired. Mental Status Exam Mental Status Exam Narrative: adequately dressed and groomed.? superficially cooperative, but fundamentally not so.? speech nml in rate, amount, loudness. decr latency.? normal tone.? thoughts vague, evasive.? affect constricted, normo-intense, non-labile.? no SI/HI/AVH expressed. Diagnostics Vital Signs (24Hr): Vital Signs - 24 hr 08/22/22 09:53 Temperature 97.9 F Pulse Rate 75 Respiratory Rate 15 Blood Pressure 120/78 Pulse Oximetry 96 Oxygen Delivery Method Room Air BMI result Body Mass Index 29.6 Labs Results: 08/03/22 20:31 08/05/22 07:44 Medications Medications Current Medications Acetaminophen (Acetaminophen 325 Mg Tablet) 650 mg PO Q6H PRN PRN Reason: Headache/Pain Mild Scale (1-3) Last Admin: 08/19/22 21:47 Dose: 650 mg Al Hydroxide/Mg Hydroxide (Magnesium Hydrox/Alum Hydrox 30 Ml Oral.Susp) 30 ml PO Q6H PRN PRN Reason: Heartburn/Nausea Last Admin: 08/18/22 22:06 Dose: 30 ml Artificial Tears (Artificial Tears 15 Ml Drops) 2 drop EYE-BOTH Q4H PRN PRN Reason: Dry Eyes Cyclobenzaprine HCl (Cyclobenzaprine Hcl 10 Mg Tablet) 10 mg PO TID PRN PRN Reason: back spasm Last Admin: 08/22/22 00:01 Dose: 10 mg Divalproex Sodium (Divalproex Sodium Er 500 Mg Tab.Er.24h) 1,500 mg PO BEDTIME JULIA Last Admin: 08/22/22 00:01 Dose: Not Given Folic Acid (Folic Acid 1 Mg Tablet) 1 mg PO DAILY [facility] Last Admin: 08/22/22 09:18 Dose: 1 mg Hydroxyzine HCl (Hydroxyzine Hcl 25 Mg Tablet) 25 mg PO Q6H PRN PRN Reason: Anxiety Lamotrigine (Lamotrigine 100 Mg Tablet) 200 mg PO BID [facility] Last Admin: 08/05/22 11:09 Dose: Not Given Magnesium Hydroxide (Milk Of Magnesia 30 Ml Oral.Susp) 30 ml PO DAILY PRN PRN Reason: Constipation Nicotine Polacrilex (Nicotine Polacrilex 2 Mg Gum) 4 mg BUCCAL Q2H PRN PRN Reason: Nicotine Cravings Quetiapine Fumarate (Quetiapine Fumarate 50 Mg Tablet) 150 mg PO BID PRN PRN Reason: agitation or insomnia Last Admin: 08/09/22 23:42 Dose: 150 mg Quetiapine Fumarate (Quetiapine Fumarate 50 Mg Tablet) 150 mg PO DAILY@2200 [facility] Last Admin: 08/22/22 00:01 Dose: 150 mg Thiamine HCl (Thiamine Hcl 100 Mg Tablet) 100 mg PO DAILY [facility] Last Admin: 08/22/22 09:18 Dose: 100 mg Trazodone HCl (Trazodone Hcl 50 Mg Tablet) 50 mg PO BEDTIME PRN PRN Reason: Insomnia Trolamine Salicylate (Trolamine Salicylate 10 % Cream 85 Gm Tube) 1 appl TOPICAL BID PRN PRN Reason: back pain Last Admin: 08/22/22 00:37 Dose: 1 appl Allergies Allergies Allergy/AdvReac Type Severity Reaction Status Date / Time carbamazepine Allergy Unknown Verified 08/04/22 16:45 haloperidol [From Haldol] AdvReac Vomiting Verified 08/03/22 19:32 Assessment & Plan Assessment & Plan (1) CKD (chronic kidney disease) stage 3, GFR 30-59 ml/min: Status: Acute Code(s): N18.30 - Chronic kidney disease, stage 3 unspecified Assessment and Plan: pt has stage III chronic kidney disease. 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 The renal function has been relatively stable. He has no overt signs or symptoms of diabetes insipidus. Ideally i would prefer to avoid restarting lithium. There is a risk of ongoing renal injury from lithium. However it appears that this is only drug that seems to be working for him. The risks and benefits were explained to the patient and he is willing to restart lithium. At this point , lithium can be restarted cautiously and monitor his serum sodium and serum creatinine closely?at least once a month. If he starts developing polyuria or hypernatremia or if creatinine increases then we should discontinue [place] and revisit the use of lithium. (2) Greta: Status: Acute Code(s): F30.9 - Manic episode, unspecified Plan encourage to restart meds. T/C lithium; would require renal involvement. 08/06/22 No interest in medication ? Observe, Educate, Support in re-starting a treatment plan. 08/07/22 Clonidine 0.1 mg bid for blood pressure mgt and mgt of anxiety-pt refused. Using Seroquel which helped to decrease BP. 08/08/22- Discontinue clonidine. Continue current plan of care. 08/09: continue current mgmt.? ask renal to weigh-in on restarting lithium. 08/10: per renal, may restart lithium if it is the only option for treatment; close monitoring of renal function in that case mandatory with low threshold for lowering/DCing lithium if renal damage should become evident.? pt appears uninterested in this option at present.? no change in presentation.? seroquel 150 mg scheduled at HS.? otherwise continue current mgmt. 08/11: remains psychotic, poor insight.? no interest in changing regimen at present. 08/12: reports benefit on meds, appropriate in conversation 08/13: stable presentation.? no behavioral concerns. 08/14: quietly psychotic, but behavior in control. 08/15: stable presentation, as yesterday. 08/16: stable presentation, as yesterday.? extremely hesitant to discharge to home, citing high anxiety there, but will not illuminate us as to why.? not accepting meds other than the seroquel 150 mg at HS. 08/17: addition of aspercreme, continues to be sexually inappropriate 08/18: poor boundaries with female peers, passed a note to one suggesting she loves him, poor sleep, vague and evasive.? remains taking only seroquel 150 mg at HS. 08/19: talking about stopping seroquel. appears more unkempt and disheveled than prior. asking for different MD. MD tells him he needs to take mood stabilizer. will begin to offer VPA. 08/20: Continue current regimen and plans. Restart of [place] is being considered in spite of his chronic kidney disease and status 08/21: Continue current regimen and plans. It appears that he is not going to be taking the Depakote. 08/22: more irritable and impulsive. declining VPA. antagonistic toward MD. planning for D/C, as pt is not accepting recommended Tx. I spent ___20___ minutes with the patient and/or on the patient floor today, greater than?50% of which was spent counseling/coordinating care. Reason for contiued inpatient stay Substantial Risk for: inability to function and rapid decompensation
[2022-08-23] MEDS: Trolamine Salicylate 10 % Cream 85 GM TUBE 1 APPL TOPICAL (00:32)
[2022-08-23 06:00] VITALS: BP 132/73; PULSE 68; RESP 16; TEMP 36.7; O2SAT 97
[2022-08-23] MEDS: Folic Acid 1 MG TABLET PO (09:34)
[2022-08-23] MEDS: Thiamine HCL 100 MG TABLET PO (09:34)
--- NOTE | 2022-08-23 15:54 | P.PNPSI_ITS ---
Subjective Subjective Date of Service: 08/23/22 Reason For Visit: greta Interim History: pt walking past MD mumbling about someone talking to his parents and deciding he is bipolar and wanting him to take lithium. MD asks to meet with pt and pt states he does not wish to speak with MD. later MD happened to walk by the open door of pt's room, and pt saw MD. pt told MD to go away. per staff, loudly self-dialoguing yesterday. screaming at noon yesterday. Mental Status Exam Mental Status Exam Narrative: adequately dressed and groomed.? not cooperative.? speech incr in rate. nml am ount, loudness. decr latency.? normal tone.? thoughts on rejecting MD, being diagnosed with bipolar disorder and having someone want him to take lithium.? affect constricted, hyper-intense, min-labile.? no SI/HI/AVH expressed. Diagnostics Vital Signs (24Hr): Vital Signs - 24 hr 08/23/22 06:00 Temperature 98.1 F Pulse Rate 68 Respiratory Rate 16 Blood Pressure 132/73 Pulse Oximetry 97 Oxygen Delivery Method Room Air BMI result Body Mass Index 29.6 Labs Results: 08/03/22 20:31 08/05/22 07:44 Medications Medications Current Medications Acetaminophen (Acetaminophen 325 Mg Tablet) 650 mg PO Q6H PRN PRN Reason: Headache/Pain Mild Scale (1-3) Last Admin: 08/19/22 21:47 Dose: 650 mg Al Hydroxide/Mg Hydroxide (Magnesium Hydrox/Alum Hydrox 30 Ml Oral.Susp) 30 ml PO Q6H PRN PRN Reason: Heartburn/Nausea Last Admin: 08/18/22 22:06 Dose: 30 ml Artificial Tears (Artificial Tears 15 Ml Drops) 2 drop EYE-BOTH Q4H PRN PRN Reason: Dry Eyes Cyclobenzaprine HCl (Cyclobenzaprine Hcl 10 Mg Tablet) 10 mg PO TID PRN PRN Reason: back spasm Last Admin: 08/22/22 23:41 Dose: 10 mg Divalproex Sodium (Divalproex Sodium Er 500 Mg Tab.Er.24h) 1,500 mg PO BEDTIME JULIA Last Admin: 08/22/22 23:41 Dose: Not Given Folic Acid (Folic Acid 1 Mg Tablet) 1 mg PO DAILY JULIA Last Admin: 10/25/22 09:34 Dose: 1 mg Hydroxyzine HCl (Hydroxyzine Hcl 25 Mg Tablet) 25 mg PO Q6H PRN PRN Reason: Anxiety Lamotrigine (Lamotrigine 100 Mg Tablet) 200 mg PO BID [facility] Last Admin: 08/05/22 11:09 Dose: Not Given Magnesium Hydroxide (Milk Of Magnesia 30 Ml Oral.Susp) 30 ml PO DAILY PRN PRN Reason: Constipation Nicotine Polacrilex (Nicotine Polacrilex 2 Mg Gum) 4 mg BUCCAL Q2H PRN PRN Reason: Nicotine Cravings Quetiapine Fumarate (Quetiapine Fumarate 50 Mg Tablet) 150 mg PO BID PRN PRN Reason: agitation or insomnia Last Admin: 08/09/22 23:42 Dose: 150 mg Quetiapine Fumarate (Quetiapine Fumarate 50 Mg Tablet) 150 mg PO DAILY@2200 [facility] Last Admin: 08/22/22 23:40 Dose: 150 mg Thiamine HCl (Thiamine Hcl 100 Mg Tablet) 100 mg PO DAILY [facility] Last Admin: 08/23/22 09:34 Dose: 100 mg Trazodone HCl (Trazodone Hcl 50 Mg Tablet) 50 mg PO BEDTIME PRN PRN Reason: Insomnia Trolamine Salicylate (Trolamine Salicylate 10 % Cream 85 Gm Tube) 1 appl TOPICAL BID PRN PRN Reason: back pain Last Admin: 08/23/22 00:32 Dose: 1 appl Allergies Allergies Allergy/AdvReac Type Severity Reaction Status Date / Time carbamazepine Allergy Unknown Verified 08/04/22 16:45 haloperidol [From Haldol] AdvReac Vomiting Verified 08/03/22 19:32 Assessment & Plan Assessment & Plan (1) CKD (chronic kidney disease) stage 3, GFR 30-59 ml/min: Status: Acute Code(s): N18.30 - Chronic kidney disease, stage 3 unspecified Assessment and Plan: pt has stage III chronic kidney disease. 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 The renal function has been relatively stable. He has no overt signs or symptoms of diabetes insipidus. Ideally i would prefer to avoid restarting lithium. There is a risk of ongoing renal injury from lithium. However it appears that this is only drug that seems to be working for him. The risks and benefits were explained to the patient and he is willing to restart lithium. At this point , lithium can be restarted cautiously and monitor his serum sodium and serum creatinine closely?at least once a month. If he starts developing polyuria or hypernatremia or if creatinine increases then we should discontinue [place] and revisit the use of lithium. (2) Greta: Status: Acute Code(s): F30.9 - Manic episode, unspecified Plan encourage to restart meds. T/C lithium; would require renal involvement. 08/06/22 No interest in medication ? Observe, Educate, Support in re-starting a treatment plan. 08/07/22 Clonidine 0.1 mg bid for blood pressure mgt and mgt of anxiety-pt refused. Using Seroquel which helped to decrease BP. 08/08/22- Discontinue clonidine. Continue current plan of care. 08/09: continue current mgmt.? ask renal to weigh-in on restarting lithium. 08/10: per renal, may restart lithium if it is the only option for treatment; close monitoring of renal function in that case mandatory with low threshold for lowering/DCing lithium if renal damage should become evident.? pt appears uninterested in this option at present.? no change in presentation.? seroquel 150 mg scheduled at HS.? otherwise continue current mgmt. 08/11: remains psychotic, poor insight.? no interest in changing regimen at present. 08/12: reports benefit on meds, appropriate in conversation 08/13: stable presentation.? no behavioral concerns. 08/14: quietly psychotic, but behavior in control. 08/15: stable presentation, as yesterday. 08/16: stable presentation, as yesterday.? extremely hesitant to discharge to home, citing high anxiety there, but will not illuminate us as to why.? not accepting meds other than the seroquel 150 mg at HS. 08/17: addition of aspercreme, continues to be sexually inappropriate 08/18: poor boundaries with female peers, passed a note to one suggesting she loves him, poor sleep, vague and evasive.? remains taking only seroquel 150 mg at HS. 08/19: talking about stopping seroquel. appears more unkempt and disheveled than prior. asking for different MD. MD tells him he needs to take mood st abilizer. will begin to offer VPA. 08/20: Continue current regimen and plans. Restart of [place] is being considered in spite of his chronic kidney disease and status 08/21: Continue current regimen and plans. It appears that he is not going to be taking the Depakote. 08/22: more irritable and impulsive. declining VPA. antagonistic toward MD. planning for D/C, as pt is not accepting recommended Tx. 08/23: pt more antagonistic toward MD, refusing to meet with MD. mumbling about being diagnosed with bipolar disorder and someone (presumably this film writer) wanting him to take lithium. appears to be decompensating quite substantially. refusing appropriate medication for his illness. I spent ___20___ minutes with the patient and/or on the patient floor today, greater than?50% of which was spent counseling/coordinating care. Reason for contiued inpatient stay Substantial Risk for: inability to function and rapid decompensation
[2022-08-23 18:00] VITALS: BP 153/101; PULSE 78; RESP 16; TEMP 36.6; O2SAT 98
[2022-08-23] MEDS: QUEtiapine Fumarate 50 MG TABLET 150 MG PO (23:07)
[2022-08-23] MEDS: Magnesium Hydrox/Alum Hydrox 30 ML ORAL.SUSP PO (23:14)
[2022-08-24] MEDS: Cyclobenzaprine HCl 10 MG TABLET PO ×2 (01:55→05:26)
[2022-08-24] MEDS: Acetaminophen 325 MG TABLET 650 MG PO ×2 (01:56→14:02)
[2022-08-24] MEDS: Trolamine Salicylate 10 % Cream 85 GM TUBE 1 APPL TOPICAL (03:39)
[2022-08-24 08:58] VITALS: BP 117/85; PULSE 63; RESP 18; TEMP 36.6; O2SAT 97
[2022-08-24] MEDS: Thiamine HCL 100 MG TABLET PO (08:59)
[2022-08-24] MEDS: Folic Acid 1 MG TABLET PO (08:59)
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
[2022-08-24 20:30] VITALS: BP 139/90; PULSE 77; RESP 16; TEMP 36.6; O2SAT 97
[2022-08-24] MEDS: QUEtiapine Fumarate 50 MG TABLET 150 MG PO (23:17)
[2022-08-25] MEDS: Acetaminophen 325 MG TABLET 650 MG PO (00:18)
[2022-08-25] MEDS: Cyclobenzaprine HCl 10 MG TABLET PO (00:19)
[2022-08-25] MEDS: Trolamine Salicylate 10 % Cream 85 GM TUBE 1 APPL TOPICAL (00:48)
[2022-08-25 08:00] VITALS: BP 103/59; PULSE 78; TEMP 36.6; O2SAT 98
[2022-08-25] MEDS: Thiamine HCL 100 MG TABLET PO (08:48)
[2022-08-25] MEDS: Folic Acid 1 MG TABLET PO (08:48)
--- NOTE | 2022-08-25 11:15 | PC.NURSE ---
Pt declined discharge assessment and instructions. Pt spoke with Liz Mandujano. prior to discharge.
== END 2022-08-25 10:38 | disposition home or self-care (01) | DRG 885 ==
LOC: HO.ED 08-04 13:11 → HO.PADLT16 08-04 14:28
PROVIDERS: Physician Assistant; Admitting Provider Psychiatry & Neurology Psychiatry; Emergency Provider Emergency Medicine; PCP Psychiatry & Neurology Psychiatry; Visit Provider Psychiatry & Neurology Psychiatry
DX: F31.10 Bipolar disorder, current episode manic without psychotic features, unspecified (principal); N18.30 Chronic kidney disease, stage 3 unspecified; N14.19 Nephropathy induced by other drugs, medicaments and biological substances; T43.595S Adverse effect of other antipsychotics and neuroleptics, sequela; Z91.14 Patient's other noncompliance with medication regimen; Z20.822 Contact with and (suspected) exposure to COVID-19; Z88.8 Allergy status to other drugs, medicaments and biological substances; Z79.899 Other long term (current) drug therapy
CPT/HCPCS: 36415; 80053; 80061; 80076; 80164; 80307; 81001; 82077; 82140; 82607; 82746; 83036; 83735; 84439; 84443; 85025; 87086; 87635; 93005; 99285

== ENCOUNTER 2022-08-29 15:39 | Emergency (ER) | payer MEDICARE, SELFPAY ==
[2022-08-29 15:47] VITALS: BP 142/88; PULSE 80; RESP 18; TEMP 36.4; O2SAT 97; BMI 29.7
== END 2022-08-29 18:41 | disposition left against medical advice (07) ==
LOC: HO.ED 18:13
PROVIDERS: Emergency Provider Emergency Medicine
DX: F41.1 Generalized anxiety disorder (principal); F43.0 Acute stress reaction
CPT/HCPCS: 99281

== ENCOUNTER 2023-11-26 19:22 | Inpatient (IN) | payer OTHER, SELFPAY ==
[2023-11-26 19:26] VITALS: BP 151/93; PULSE 86; RESP 14; TEMP 37.3; O2SAT 96; BMI 32.2
[2023-11-26 20:16] VITALS: BP 141/93; PULSE 97; RESP 16; TEMP 36.5; O2SAT 97
--- NOTE | 2023-11-26 20:22 | MHC.EDTECH ---
This pct just assumed care of Patient ,vitals taken ,Patient was gear changer into (green gown and blue Pants ) all Patient belonings are locked upon bh Pod in laundry room closet .
--- NOTE | 2023-11-26 21:53 | ECG_ITS ---
Test Reason : DEPRESSION Blood Pressure : / mmHG Vent. Rate : 079 BPM Atrial Rate : 079 BPM P-R Int : 198 ms QRS Dur : 094 ms QT Int : 462 ms P-R-T Axes : 052 066 028 degrees QTc Int : 529 ms Poor data quality Normal sinus rhythm Prolonged QT Abnormal ECG When compared with ECG of 04-AUG-2022 10:43, Poor data quality in current ECG precludes serial comparison repeat EKG Referred By: Juan Perez Electronically Signed By:SHREE GIBSON MD
[2023-11-26 22:31] VITALS: BP 131/85; PULSE 78; RESP 16; TEMP 36.9; O2SAT 96
--- NOTE | 2023-11-26 22:44 | MHC.EDTECH ---
Patient ekg taken and was read by Provider ,vitals taken ,blood drawn and covid swab collected and sent to lab .
[2023-11-26 22:45] LABS: MANUAL DIFF FLAG NO
[2023-11-26 22:46] LABS: Basophils Absolute Auto 0.1 X10*3/uL (0.0-0.2); Basophils Percent Auto 0.7 % (0-2); Eosinophils Absolute Auto 0.5 X10*3/uL (0.0-0.4); Eosinophils Percent Auto 5.3 % (0-4); Hematocrit 52.3 % (42.0-52.0); Hemoglobin 17.7 g/dl (14.0-18.0); Imm Gran Abs Auto 0.02 X10*3/uL (0.00-0.03); Imm Gran Pct Auto 0.2 % (0.0-0.4); Lymphocytes Absolute Auto 2.9 X10*3/uL (1.2-4.9); Lymphocytes Percent Auto 32.3 % (20-40); Mean Corpuscular HGB Conc 33.8 g/dl (31.0-36.0); Mean Corpuscular Hemoglobin 28.8 pg (27.0-33.0); Mean Platelet Volume 9.4 fL (9.4-12.4); Monocytes Absolute Auto 0.9 X10*3/uL (0.1-1.2); Monocytes Percent Auto 9.9 % (2-11); Neutrophils Absolute Auto 4.6 x10*3/uL (2.0-8.3); Neutrophils Percent Auto 51.6 % (45-73); Platelet Count 178 X10*3/uL (160-400); Red Blood Count 6.15 X10*6/uL (4.60-5.80); Red Cell Distribution Width 13.3 % (11.0-16.0); White Blood Count 8.9 X10*3/uL (4.8-10.8)
--- NOTE | 2023-11-26 22:58 | ED.GENADULT ---
HPI - General Adult General Chief complaint: Psychiatric Symptoms Stated complaint: Med adj?/depressed Time Seen by Provider: 11/26/23 21:06 Source: patient, RN notes reviewed and old records reviewed Mode of arrival: ambulatory Limitations: no limitations History of Present Illness HPI narrative: 53-year-old male with past medical history significant for bipolar disorder, chronic kidney disease presents for evaluation of depression Patient reports a long history of depression He reports that for the last month he is felt helpless and homeless. He states that he has spent all day of every day in bed except ?I sometimes get out of bed for dinner. ? He states that he does not even watch TV, ?I just lay there. ? He states that he takes Ativan and clonidine which he thinks just put him to sleep Patient reports that he takes Zyprexa for his bipolar disorder He was decreased from 40 mg daily to 20 mg daily about 1 month ago He states that he does not feel this medication helps him He denies any suicidal ideation He would like a medication adjustment is concerned that he may become manic Related Data Home Medications Medication Instructions Recorded Confirmed clonidine HCl 0.1 mg tablet 0.1 mg PO BID 11/27/23 11/27/23 docusate sodium 100 mg capsule 100 mg PO BID 11/27/23 11/27/23 lorazepam 1 mg tablet 1 mg PO BEDTIME PRN Sleep 11/27/23 11/27/23 olanzapine 20 mg tablet 20 mg PO BEDTIME 11/27/23 11/27/23 Allergies Allergy/AdvReac Type Severity Reaction Status Date / Time carbamazepine Allergy Intermediate Vomiting Verified 11/26/23 19:34 haloperidol [From Haldol] AdvReac Intermediate Vomiting Verified 11/26/23 19:34 Review of Systems Constitutional: Constitutional: Denies body ache(s), Denies chills and Denies fever(s) ENT: Denies sore throat Cardiovascular: Cardiovascular: Denies chest pain and Denies dyspnea Respiratory: Respiratory: Denies cough and Denies dyspnea Gastrointestinal: Gastrointestinal: Denies abdominal pain Musculoskeletal: Musculoskeletal: Denies back pain Integumentary/Breasts: Skin/Breast: Denies rash Psychiatric: Psychiatric: Reports abnormal sleep pattern, Reports depression, Reports hopelessness, Reports anhedonia and Denies suicidal ideation PMFSH Social History Social History Household Members: Spouse Household Members Other:: only Housing: Condominium Do you presently have visiting nurse or other home services: No Patient Tobacco Use Status: Never used Tobacco Smoked in Last 30 Days: No Second Hand Smoke Exposure: No Use of substances other than those prescribed or required for medical reasons: No Advance Directives: No Advance Directives Information Provided: No Physical Exam ED Vital Signs: Vital Signs - 24 hr 11/27/23 15:27 11/27/23 20:00 11/28/23 04:41 Temperature 98.3 F 98.0 F Pulse Rate 85 97 87 Respiratory Rate 16 18 16 Blood Pressure 139/100 H 156/97 H 129/97 H Pulse Oximetry 94 94 98 Oxygen Delivery Method Room Air Room Air Room Air BMI result Body Mass Index 32.2 Const General: healthy appearing, comfortable, no acute distress, alert and awake Nutritional Appearance: well nourished Orientation/consciousness: patient oriented x3 HENMT Head: Yes normocephalic and Yes atraumatic Eyes Eyelids: Yes eyelids normal Conjunctivae: conjunctivae normal Sclerae: sclerae normal Corneas: corneas normal Pupils: Equal, round and reactive pupils present EOM: EOMs intact bilaterally Neck Neck: Yes full ROM Resp Effort & Inspection: normal respiratory effort, able to speak in complete sentences and not labored GI Inspection: No distended Palpation (GI): Soft to palpation, not firm, nontender, no guarding and not rigid Neuro General: patient oriented x3 Cranial nerves: Yes Equal, round and reactive pupils present and Yes Bilaterally intact EOM present Cognition (Neuro): normal cognition Extrem Other: Moving all extremities well without any obvious deformities Course Course Course Narrative: Physician observation continued. VS stable, labs and Cr at baseline. No acute events overnight. Pending CARE team consult this AM. 07:11 Physician observation continued There were no reported incidents on this patient by the overnight staff, patient has been in the emergency department for 36 hours. Patient will remain in the emergency department Behavioral Health Unit until disposition can be determined or until patient's symptoms improve over time. Medications Administered Generic Name Dose Route Start Last Admin Trade Name Freq PRN Reason Stop Dose Admin Clonidine HCl 0.1 mg 11/27/23 21:00 11/27/23 20:35 Clonidine Hcl 0.1 Mg Tablet PO 0.1 mg BID JULIA Administration Protocol Docusate Sodium 100 mg 11/27/23 21:00 11/27/23 20:35 Docusate Sodium 100 Mg Capsule PO 100 mg BID JULIA Administration Lorazepam 1 mg 11/27/23 14:24 11/27/23 20:35 Lorazepam 1 Mg Tablet PO 1 mg BEDTIME PRN Administration Sleep Olanzapine 20 mg 11/27/23 21:00 11/27/23 20:35 Olanzapine 10 Mg Tablet PO 20 mg BEDTIME JULIA Administration Discontinued Medications Generic Name Dose Route Start Last Admin Trade Name Senthilq PRN Reason Stop Dose Admin Al Hydroxide/Mg Hydroxide 30 ml 11/27/23 05:41 11/27/23 05:44 Magnesium Hydrox/Alum Hydrox 30 Ml Oral.Susp PO 11/27/23 05:42 30 ml ONCE STA Administration Medical Decision Making Medical Decision Making [facility] Narrative: 53-year-old male presents for evaluation of worsening depression hopelessness. He has no somatic complaints. Plan for basic metabolic workup for medical clearance and the patient be referred to the care team Differential Diagnosis Differential Diagnoses: The differential diagnosis associated with the presentation includes Depression Suicidal ideation Bipolar disorder Major depressive episode Admission/Observation Consideration of admission/observation: Escalation of care including admission/observation considered Lab Data [facility] Lab Attestation statement: I reviewed the patient's lab results. No leukocytosis or anemia. Patient's sodium is just above normal at 146. Chloride is just above normal at 1 9. Has some within normal limits. Patient has chronic kidney disease with renal function consistent with his baseline. 11/26/23 22:40 11/26/23 22:40 Labs: Lab Results 11/26/23 11/27/23 Range/Units 22:40 11:44 WBC 8.9 (4.8-10.8) X10*3/uL RBC 6.15 H (4.60-5.80) X10*6/uL Hgb 17.7 (14.0-18.0) g/dl Hct 52.3 H (42.0-52.0) % MCV 85.0 (80.0-98.0) fL MCH 28.8 (27.0-33.0) pg MCHC 33.8 (31.0-36.0) g/dl RDW 13.3 (11.0-16.0) % Plt Count 178 (160-400) X10*3/uL MPV 9.4 (9.4-12.4) fL Immature Gran % (Auto) 0.2 (0.0-0.4) % Neut % (Auto) 51.6 (45-73) % Lymph % (Auto) 32.3 (20-40) % Bailey % (Auto) 9.9 (2-11) % Eos % (Auto) 5.3 H (0-4) % Baso % (Auto) 0.7 (0-2) % Lymph # (Auto) 2.9 (1.2-4.9) X10*3/uL Bailey # (Auto) 0.9 (0.1-1.2) X10*3/uL Eos # (Auto) 0.5 H (0.0-0.4) X10*3/uL Baso # (Auto) 0.1 (0.0-0.2) X10*3/uL Abs Immat Gran (auto) 0.02 (0.00-0.03) X10*3/uL Absolute Neuts (auto) 4.6 (2.0-8.3) x10*3/uL Absolute Nucleated RBC 0.000 (0.0-0.012) X10*3/uL Nucleated RBC % (auto) 0.0 (0.0-0.2) /100WBC Sodium 146 H (135-145) mmol/L Potassium 4.3 (3.3-5.1) mmol/L Chloride 109 H (96-108) mmol/L Carbon Dioxide 26 (22-29) mmol/L Anion Gap 15 (12-20) BUN 19 H (9-16) mg/dL Creatinine 1.61 H (0.5-1.4) mg/dL Estim Creat Clear Calc 62.7 Estimated GFR 45 Random Glucose 80 (60-115) mg/dL Calcium 10.4 H (8.4-10.2) mg/dL Total Bilirubin 0.5 (0.0-1.0) mg/dL AST 18 (5-37) U/L ALT 20 (0-40) U/L Alkaline Phosphatase 65 (39-117) U/L Total Protein 7.5 (6.5-8.0) g/dL Albumin 4.2 (3.5-5.0) g/dL Salicylates < 5.0 L (15-30) mg/dL Urine Opiates Screen Not Detected (Not Detect) Urine Fentanyl Screen Not Detected (Not Detect) Acetaminophen < 3 (<30) mcg/mL Ur Barbiturates Screen Not Detected (Not Detect) Ur Phencyclidine Scrn Not Detected (Not Detect) Ur Amphetamines Screen Not Detected (Not Detect) U Benzodiazepines Scrn Not Detected (Not Detect) Urine Cocaine Screen Not Detected (Not Detect) U Marijuana (THC) Screen Not Detected (Not Detect) Ethyl Alcohol < 10 mg/dL COVID-19 ([facility]) Negative (Negative) COVID-19 Clin Com See Note Discharge Plan Discharge Clinical Impression: Bipolar disorder, Depression Patient Disposition: Still a Patient Prescriptions: No Action clonidine HCl 0.1 mg Tablet 0.1 mg PO BID docusate sodium 100 mg Capsule 100 mg PO BID lorazepam 1 mg Tablet 1 mg PO BEDTIME PRN (Reason: Sleep) olanzapine 20 mg Tablet 20 mg PO BEDTIME Interventions: Carr-Suicide Risk Severity Scale Last Done: 11/27/23 08:00
[2023-11-26 23:02] LABS: Acetaminophen LAB < 3 mcg/mL (<30); Alanine Aminotransferase 20 U/L (0-40); Albumin Level 4.2 g/dL (3.5-5.0); Alkaline Phosphatase 65 U/L (39-117); Anion Gap 15 (12-20); Aspartate Amino Transferase 18 U/L (5-37); Bilirubin Total 0.5 mg/dL (0.0-1.0); Blood Urea Nitrogen 19 mg/dL (9-16); Calcium 10.4 mg/dL (8.4-10.2); Carbon Dioxide 26 mmol/L (22-29); Chloride 109 mmol/L (96-108); Creatinine Clr Calc Pharmacy 62.7; Estimated Glomerular Filt Rate 45; Ethanol < 10 mg/dL; Glucose Random 80 mg/dL (60-115); Potassium 4.3 mmol/L (3.3-5.1); Salicylate < 5.0 mg/dL (15-30); Sodium 146 mmol/L (135-145); Total Protein 7.5 g/dL (6.5-8.0)
[2023-11-26 23:05] LABS: COVID-19 Test Negative (Negative); IDNOW Serial# 6674DD1D
[2023-11-27 04:00] VITALS: BP 151/97; PULSE 78; RESP 16; TEMP 36.6; O2SAT 95
[2023-11-27] MEDS: Magnesium Hydrox/Alum Hydrox 30 ML ORAL.SUSP PO (05:44)
--- NOTE | 2023-11-27 08:48 | PC.NURSE ---
CARE team at bedside to evaluate patient.
--- NOTE | 2023-11-27 08:55 | PC.NURSE ---
Pt given warm blanket, breakfast tray cleared. Pt denies complaints.
--- NOTE | 2023-11-27 11:22 | PC.NURSE ---
Pt made aware of need for urine sample.
[2023-11-27 12:00] LABS: Amphetamine Screen Urine Not Detected (Not Detect); Barbiturates, Urine Not Detected (Not Detect); Benzodiazepines Screen Urine Not Detected (Not Detect); Cannabinoid Screen Urine Not Detected (Not Detect); Cocaine Screen Urine Not Detected (Not Detect); Fentanyl, urine Not Detected (Not Detect); Opiate Screen Urine Not Detected (Not Detect); Phencyclidine Screen Urine Not Detected (Not Detect)
--- NOTE | 2023-11-27 12:34 | PHA.MEDREC ---
Pharmacy Consult ? Medication Reconciliation Pharmacy has completed the medication reconciliation. Spoke to patient. Patient is prescribed Ativan TID, but patient said he only takes that at bedtime for sleep.
--- NOTE | 2023-11-27 13:22 | MHC.CARE ---
CARE Team completed [facility] referral- there is no beds available today
[2023-11-27 15:27] VITALS: BP 139/100; PULSE 85; RESP 16; TEMP 36.8; O2SAT 94
[2023-11-27 20:00] VITALS: BP 156/97; PULSE 97; RESP 18; O2SAT 94
[2023-11-27] MEDS: Docusate Sodium 100 MG CAPSULE PO (20:35)
[2023-11-27] MEDS: OLANZapine 10 MG TABLET 20 MG PO (20:35)
[2023-11-27] MEDS: cloNIDine HCL 0.1 MG TABLET PO (20:35)
[2023-11-27] MEDS: LORazepam 1 MG TABLET PO (20:35)
--- NOTE | 2023-11-27 23:04 | PC.NURSE ---
hand off to elton martines
[2023-11-28 04:41] VITALS: BP 129/97; PULSE 87; RESP 16; TEMP 36.7; O2SAT 98
--- NOTE | 2023-11-28 04:42 | MHC.EDTECH ---
PATIENT CAME OVER FROM THE MAIN ED TO BH POD IN ROOM #5 ,VITALS TAKEN ,PATIENT HAD A SUN BUTTER AND JELLY SANDWICH AND A MILK FOR SNACK .
[2023-11-28] MEDS: Docusate Sodium 100 MG CAPSULE PO ×2 (12:13→20:08)
[2023-11-28] MEDS: cloNIDine HCL 0.1 MG TABLET PO ×2 (12:13→20:08)
--- NOTE | 2023-11-28 17:56 | PC.NURSE ---
Jos in bed resting for most of shift today. Had a visit with his and reports that went well. Very flat when engaged. Adherent with scheduled medications. No c/o pain or discomfort. Appetite fair.
[2023-11-28 18:06] VITALS: RESP 18
[2023-11-28] MEDS: OLANZapine 10 MG TABLET 20 MG PO (20:09)
[2023-11-28] MEDS: LORazepam 1 MG TABLET PO (20:11)
[2023-11-28 21:02] VITALS: BP 130/73; RESP 18; TEMP 36.3; O2SAT 94
[2023-11-29 06:00] VITALS: BP 116/74; PULSE 61; RESP 16; TEMP 36.3; O2SAT 95
--- NOTE | 2023-11-29 08:03 | PC.NURSE ---
Report taken from Melissa MCKEON, assumed care of pt at 0700. Resting on bed eyes closed skin pwd respirations even unlabored. VSS. Breakfast tray provided to pt. Safety maintained. ACCS bedsearch continues.
[2023-11-29] MEDS: Docusate Sodium 100 MG CAPSULE PO ×2 (09:16→19:59)
--- NOTE | 2023-11-29 09:17 | PC.NURSE ---
Pt medicated per MAR, refused clonidine states I don't take it in the morning, only sometimes Provider notified.
[2023-11-29 09:40] LABS: COVID-19 Test Negative (Negative); IDNOW Serial# 152EDE1D
--- NOTE | 2023-11-29 11:06 | PC.NURSE ---
Report given to Maria Victoria MCKEON pt exits my care at this time.
[2023-11-29 13:18] LABS: Appearance Urine Clear; Color Urine Yellow; Glucose Urine UA Negative (Negative); Leukocyte Esterase Urine Negative (Negative); Nitrite Urine Negative (Negative); PH 5.5 (5.0-9.0); Specific Gravity - Urine 1.015 (1.005-1.025); Urine Blood Negative (Negative); Urine Ketones Negative (Negative); Urine Protein Negative (Neg-Trace)
[2023-11-29 14:00] VITALS: RESP 18
--- NOTE | 2023-11-29 14:14 | PC.NURSE ---
Report given to Ally on M5
--- NOTE | 2023-11-29 14:38 | PC.NURSE ---
Patient supplied with copy of signed CV per request
[2023-11-29 15:44] VITALS: BP 142/92; PULSE 58; RESP 16; TEMP 36.3; O2SAT 95
--- NOTE | 2023-11-29 16:43 | PC.NURSE ---
pt arrived on the unit on a CV via wheelchair @ 1530. Skin check performed, vitals taken and within normal limits, menu for this evening and tomorrow completed. Admission assessment to follow.
--- NOTE | 2023-11-29 17:55 | PC.ADMIT ---
Addendum entered by Salima Ochoa RN 11/29/23 18:23: PT's stated medical hx includes CKD stage III Original Note: Mr. Mayberry is a 53 year old [place] African speaking male that arrived on this unit at at 15:30 via stretcher from the [facility] POD and was placed on 15 minute safety checks . Legal status: conditional voluntary. PT self presented to [facility] ED secondary to increased depressive symptoms progressively getting worse since the fall of 2022. PT reports he is out of bed only about 4 hours per day, severe anhedonia, and lack of sexual drive and requests a med adjustment to help with these symptoms. PT has a hx of requiring IPLOC (last here JUL 2022 M3) and reports his symptoms have always been vandana except one other time when he attempted suicide by OD on Ativan. PT denies current thought of SI, denies any HI/AH/VH. PT reports he has been on disability since 2019 due to his unstable mental health. Legals signed, safety tool and tx plan completed. Plan of care ongoing.
[2023-11-29 19:57] VITALS: BP 157/103; PULSE 99
[2023-11-29] MEDS: LORazepam 1 MG TABLET PO (19:59)
[2023-11-29] MEDS: OLANZapine 10 MG TABLET 20 MG PO (19:59)
[2023-11-29] MEDS: cloNIDine HCL 0.1 MG TABLET PO (19:59)
[2023-11-30 06:00] VITALS: BP 93/52; PULSE 57; RESP 16; TEMP 36.1; O2SAT 96
[2023-11-30 07:00] VITALS: BMI 31.0
[2023-11-30 09:08] VITALS: BP 123/77
[2023-11-30] MEDS: Docusate Sodium 100 MG CAPSULE PO ×2 (09:17→19:56)
[2023-11-30] MEDS: cloNIDine HCL 0.1 MG TABLET PO (09:17)
[2023-11-30 09:26] LABS: Estimated Average Glucose 100 mg/dL; Hemoglobin A1c % 5.1 % (<6.0)
[2023-11-30 09:45] LABS: Cholesterol 250 mg/dL (<200); HDL Cholesterol 34 mg/dL (>40); LDL Cholesterol Calculated 176 mg/dL (<100); Triglycerides 200 mg/dL (<150)
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
[2023-11-30 09:54] LABS: Free T4 (Free Thyroxine) 0.99 ng/dL (0.71-1.85); Thyroid Stimulating Hormone 0.25 uIU/mL (0.32-4.0)
[2023-11-30 10:06] LABS: Folate 8.6 ng/mL (> or = 4.0)
[2023-11-30 10:15] LABS: Blood Urea Nitrogen 22 mg/dL (9-16); Creatinine Clr Calc Pharmacy 63.4; Estimated Glomerular Filt Rate 46
[2023-11-30 10:16] LABS: Vitamin B12 382 pg/mL (200-900)
[2023-11-30 18:00] VITALS: BP 132/93; PULSE 84; RESP 16; TEMP 36.2; O2SAT 96
[2023-11-30] MEDS: OLANZapine 10 MG TABLET 20 MG PO (19:56)
[2023-11-30] MEDS: LORazepam 1 MG TABLET PO (20:00)
[2023-11-30] MEDS: traZODone HCL 50 MG TABLET PO (20:00)
[2023-12-01] MEDS: Docusate Sodium 100 MG CAPSULE PO ×2 (08:54→20:10)
[2023-12-01 09:33] VITALS: BP 133/73; PULSE 71; RESP 16; TEMP 36.7; O2SAT 97
--- NOTE | 2023-12-01 14:35 | HO.PSYCHPN ---
Subjective Subjective Date of Service: 12/01/23 Reason For Visit: bipolar disorder; CKD- Stage III Subjective Notes: Conditional Voluntary Interim History: pt reports continued depression; wanting to withdraw today. says he feels like staying in bed; denies SI or Hi. no vandana; reports he wants to change his medication due to side effects; is ok with waiting to get collateral info and coordinate with outpatient provider Medication Compliance: Yes Side effects from medications: No Attending Groups: Intermittent Review of Systems Acute medical concerns: No Medical Review of Systems: unchanged Review of Systems Review of Systems no change Constitutional: Denies body ache(s), Denies chills and Denies fever(s) Denies sore throat Cardiovascular: Denies chest pain and Denies dyspnea Respiratory: Denies cough and Denies dyspnea Gastrointestinal: Denies abdominal pain Musculoskeletal: Denies back pain Skin/Breast: Denies rash Psychiatric: Reports abnormal sleep pattern, Reports depression, Reports hopelessness, Reports anhedonia and Denies suicidal ideation Mental Status Exam Mental Status Exam Narrative: Pt is alert and oriented; behavior is cooperative, calm; patient is not in distress; in bed with covers on when approached; unkempt, disheveled; mood is described as depressed and affect congruent, downcast; eye contact limited; Speech a little slowed with some mild latency; significant psychomotor retardation present; thought process is organized and goal directed; Thought content is on tx; otherwise pertinent to relevant topics and without any delusional content, paranoid ideations or grandiosity; intermittent, passive SI; no HI; There is no evidence of perceptual disturbance. Patients insight and judgment impaired but adequate. Diagnostics Vital Signs (24Hr): Vital Signs - 24 hr 11/30/23 18:00 12/01/23 09:33 Temperature 97.2 F 98.1 F Pulse Rate 84 71 Respiratory Rate 16 16 Blood Pressure 132/93 H 133/73 Pulse Oximetry 96 97 Oxygen Delivery Method Room Air Room Air BMI result Body Mass Index 31.0 Labs 11/26/23 22:40 11/30/23 09:01 Labs: Laboratory Results - last 48 hr 11/30/23 09:01 BUN 22 H Creatinine 1.59 H Estim Creat Clear Calc 63.4 Estimated GFR 46 Estimat Average Glucose 100 Hemoglobin A1c % 5.1 Magnesium 2.0 Triglycerides 200 H Cholesterol 250 H LDL Cholesterol, Calc 176 H HDL Cholesterol 34 L Vitamin B12 382 Folate 8.6 TSH 0.25 L Free T4 0.99 Medications Medications Current Medications Acetaminophen (Acetaminophen 325 Mg Tablet) 650 mg PO Q6H PRN PRN Reason: Headache/Pain Mild Scale (1-3) Al Hydroxide/Mg Hydroxide (Magnesium Hydrox/Alum Hydrox 30 Ml Oral.Susp) 30 ml PO Q6H PRN PRN Reason: Heartburn/Nausea Clonidine HCl (Clonidine Hcl 0.1 Mg Tablet) 0.1 mg PO Q4H PRN; Protocol PRN Reason: mild anxiety Docusate Sodium (Docusate Sodium 100 Mg Capsule) 100 mg PO BID [facility] Last Admin: 12/01/23 08:54 Dose: 100 mg Hydroxyzine HCl (Hydroxyzine Hcl 25 Mg Tablet) 25 mg PO Q6H PRN PRN Reason: Anxiety Lorazepam (Lorazepam 1 Mg Tablet) 1 mg PO DAILY PRN PRN Reason: moderate anxiety/Sleep Last Admin: 11/30/23 20:00 Dose: 1 mg Magnesium Hydroxide (Milk Of Magnesia 30 Ml Oral.Susp) 30 ml PO DAILY PRN PRN Reason: Constipation Olanzapine (Olanzapine 10 Mg Tablet) 20 mg PO BEDTIME [facility] Last Admin: 11/30/23 19:56 Dose: 20 mg Trazodone HCl (Trazodone Hcl 50 Mg Tablet) 50 mg PO BEDTIME MRX1 PRN PRN Reason: Insomnia Last Admin: 11/30/23 20:00 Dose: 50 mg Allergies Allergies Allergy/AdvReac Type Severity Reaction Status Date / Time carbamazepine Allergy Intermediate Vomiting Verified 11/26/23 19:34 haloperidol [From Haldol] AdvReac Intermediate Vomiting Verified 11/26/23 19:34 Assessment & Plan Assessment & Plan (1) Bipolar 1 disorder, depressed, severe: Status: Acute Code(s): F31.4 - Bipolar disorder, current episode depressed, severe, without psychotic features (2) CKD (chronic kidney disease) stage 3, GFR 30-59 ml/min: Status: Acute Code(s): N18.30 - Chronic kidney disease, stage 3 unspecified Plan pt is a 53 yo male with hx of bipolar I disorder, CKD (2/2 lithium) who presents for worsening depression and wanting to get off Zyprexa. Pt has hx of severe manic episodes but this is first bout of depression for him. About a year ago, he stopped taking his medication, got severely manic and was forensically hospitalized, placed on Zyprexa. For past 6months, he's been w/out any manic episodes but with crippling depression; zyprexa is also causing constipation and diminished libido; this past week pt started having vague SI, though no plan or intent. Pt remained on Zyprexa only until charges stemming from manic episode resolved; he now wants to transition off zyprexa but is afraid to do so in community in case vandana resurfaces. 12/01/23 continue tx plan Plan: continue zyprexa 20mg qhs for now hx of doing well on depakote/lamictal/seroquel getting collateral from Dr. Vazquez (pt asked medical technical writer to discuss tx plan with Dr. Vazquez, pt's outpt provider) Reason for continued inpatient stay Substantial Risk for: harm to self, inability to function and rapid decompensation Time Spent With Patient Time: Total time managing care of this patient today ____ minutes.
[2023-12-01 17:26] VITALS: BP 124/92; PULSE 105; RESP 16; TEMP 36.2; O2SAT 95
--- NOTE | 2023-12-01 18:52 | PC.NURSE ---
Assumed care of pt at 18:45, currently on phone. Offers no complaints @ this time. Plan of care ongoing.
[2023-12-01] MEDS: LORazepam 1 MG TABLET PO (20:09)
[2023-12-01] MEDS: OLANZapine 10 MG TABLET 20 MG PO (20:09)
[2023-12-01] MEDS: traZODone HCL 50 MG TABLET PO (20:10)
[2023-12-02] MEDS: traZODone HCL 50 MG TABLET PO ×2 (02:18→20:06)
[2023-12-02] MEDS: Acetaminophen 325 MG TABLET 650 MG PO (02:18)
[2023-12-02] MEDS: Cariprazine HCl 1.5 MG CAPSULE PO (08:49)
[2023-12-02] MEDS: Docusate Sodium 100 MG CAPSULE PO ×2 (08:49→20:06)
[2023-12-02 09:30] VITALS: BP 113/71; PULSE 71; RESP 16; TEMP 36.7; O2SAT 95
--- NOTE | 2023-12-02 10:55 | HO.PSYCHPN ---
Subjective Subjective Date of Service: 12/02/23 Reason For Visit: bipolar disorder; CKD- Stage III Interim History: met with patient. Discussed with Nursing. Very isolative. Not attending groups. Is depressed. Denies suicidal thoughts or psychosis. Hopeful Vraylar will help with severe depression- First dose today. Excess sleeping. Appetite ok Medication Compliance: Yes Side effects from medications: No Attending Groups: No Review of Systems Acute medical concerns: No Review of Systems Review of Systems Yes all other systems are reviewed and are negative Mental Status Exam Mental Status Exam Narrative: Pleasant. Casually dressed. isolated to room. Fair self-care. Depressed. Denies current SI. No HI. No agitation psychosis. Insight and judgment fair Diagnostics Vital Signs (24Hr): Vital Signs - 24 hr 12/01/23 17:26 12/02/23 09:30 Temperature 97.2 F 98.1 F Pulse Rate 105 H 71 Respiratory Rate 16 16 Blood Pressure 124/92 H 113/71 Pulse Oximetry 95 95 Oxygen Delivery Method Room Air Room Air BMI result Body Mass Index 31.0 Labs 11/26/23 22:40 11/30/23 09:01 Medications Medications Current Medications Acetaminophen (Acetaminophen 325 Mg Tablet) 650 mg PO Q6H PRN PRN Reason: Headache/Pain Mild Scale (1-3) Last Admin: 12/02/23 02:18 Dose: 650 mg Al Hydroxide/Mg Hydroxide (Magnesium Hydrox/Alum Hydrox 30 Ml Oral.Susp) 30 ml PO Q6H PRN PRN Reason: Heartburn/Nausea Cariprazine (Cariprazine Hcl 1.5 Mg Capsule) 1.5 mg PO DAILY [facility] Last Admin: 12/02/23 08:49 Dose: 1.5 mg Clonidine HCl (Clonidine Hcl 0.1 Mg Tablet) 0.1 mg PO Q4H PRN; Protocol PRN Reason: mild anxiety Docusate Sodium (Docusate Sodium 100 Mg Capsule) 100 mg PO BID [facility] Last Admin: 12/02/23 08:49 Dose: 100 mg Hydroxyzine HCl (Hydroxyzine Hcl 25 Mg Tablet) 25 mg PO Q6H PRN PRN Reason: Anxiety Lorazepam (Lorazepam 1 Mg Tablet) 1 mg PO DAILY PRN PRN Reason: moderate anxiety/Sleep Last Admin: 12/01/23 20:09 Dose: 1 mg Magnesium Hydroxide (Milk Of Magnesia 30 Ml Oral.Susp) 30 ml PO DAILY PRN PRN Reason: Constipation Olanzapine (Olanzapine 10 Mg Tablet) 20 mg PO BEDTIME [facility] Last Admin: 12/01/23 20:09 Dose: 20 mg Trazodone HCl (Trazodone Hcl 50 Mg Tablet) 50 mg PO BEDTIME MRX1 PRN PRN Reason: Insomnia Last Admin: 12/02/23 02:18 Dose: 50 mg Allergies Allergies Allergy/AdvReac Type Severity Reaction Status Date / Time carbamazepine Allergy Intermediate Vomiting Verified 11/26/23 19:34 haloperidol [From Haldol] AdvReac Intermediate Vomiting Verified 11/26/23 19:34 Assessment & Plan Assessment & Plan (1) Bipolar 1 disorder, depressed, severe: Status: Acute Code(s): F31.4 - Bipolar disorder, current episode depressed, severe, without psychotic features (2) CKD (chronic kidney disease) stage 3, GFR 30-59 ml/min: Status: Acute Code(s): N18.30 - Chronic kidney disease, stage 3 unspecified Plan pt is a 53 yo male with hx of bipolar I disorder, CKD (2/2 lithium) who presents for worsening depression and wanting to get off Zyprexa. Pt has hx of severe manic episodes but this is first bout of depression for him. About a year ago, he stopped taking his medication, got severely manic and was forensically hospitalized, placed on Zyprexa. For past 6months, he's been w/out any manic episodes but with crippling depression; zyprexa is also causing constipation and diminished libido; this past week pt started having vague SI, though no plan or intent. Pt remained on Zyprexa only until charges stemming from manic episode resolved; he now wants to transition off zyprexa but is afraid to do so in community in case vandana resurfaces. Plan: continue zyprexa 20mg qhs for now hx of doing well on depakote/lamictal/seroquel getting collateral from Dr. Vazquez (pt asked medical technical writer to discuss tx plan with Dr. Vazquez, pt's outpt provider) 23: no changes- just started vraylar Reason for continued inpatient stay Substantial Risk for: inability to function Time Spent With Patient Time: Total time managing care of this patient today ____ minutes.
[2023-12-02 18:45] VITALS: BP 149/88; PULSE 112; RESP 18; TEMP 36.2; O2SAT 95
[2023-12-02 20:00] VITALS: BP 189/86; PULSE 111
[2023-12-02] MEDS: LORazepam 1 MG TABLET PO (20:06)
[2023-12-02] MEDS: OLANZapine 10 MG TABLET 20 MG PO (20:06)
[2023-12-02] MEDS: cloNIDine HCL 0.1 MG TABLET PO (20:11)
[2023-12-03] MEDS: Cariprazine HCl 1.5 MG CAPSULE PO (09:46)
[2023-12-03] MEDS: Docusate Sodium 100 MG CAPSULE PO ×2 (09:46→20:22)
[2023-12-03 09:55] VITALS: BP 119/64; PULSE 59; RESP 18; TEMP 36.3; O2SAT 96
--- NOTE | 2023-12-03 12:13 | HO.PSYCHPN ---
Subjective Subjective Date of Service: 12/03/23 Reason For Visit: bipolar disorder; CKD- Stage III Interim History: Met with patient. Discussed with Nursing. Very isolative. Excess sleeping. Appetite ok. Reports doing puzzles and trying to read and also waking outside of his room yesterday for 30 minutes. Enjoyed 2 visits. Not attending groups. Is depressed. Denies suicidal thoughts or psychosis. Hopeful Vraylar will help with severe depression. Medication Compliance: Yes Side effects from medications: No Attending Groups: No Review of Systems Acute medical concerns: No Review of Systems Review of Systems Yes all other systems are reviewed and are negative Mental Status Exam Mental Status Exam Narrative: Pleasant. Casually dressed. isolated to room. Fair self-care. Depressed. Denies current SI. No HI. No agitation psychosis. Insight and judgment fair Diagnostics Vital Signs (24Hr): Vital Signs - 24 hr 12/02/23 18:45 12/02/23 20:00 12/03/23 09:55 Temperature 97.2 F 97.3 F Pulse Rate 112 H 111 H 59 Respiratory Rate 18 18 Blood Pressure 149/88 H 189/86 H 119/64 Pulse Oximetry 95 96 Oxygen Delivery Method Room Air Room Air BMI result Body Mass Index 31.0 Labs 11/26/23 22:40 11/30/23 09:01 Medications Medications Current Medications Acetaminophen (Acetaminophen 325 Mg Tablet) 650 mg PO Q6H PRN PRN Reason: Headache/Pain Mild Scale (1-3) Last Admin: 12/02/23 02:18 Dose: 650 mg Al Hydroxide/Mg Hydroxide (Magnesium Hydrox/Alum Hydrox 30 Ml Oral.Susp) 30 ml PO Q6H PRN PRN Reason: Heartburn/Nausea Cariprazine (Cariprazine Hcl 1.5 Mg Capsule) 1.5 mg PO DAILY [facility] Last Admin: 12/03/23 09:46 Dose: 1.5 mg Clonidine HCl (Clonidine Hcl 0.1 Mg Tablet) 0.1 mg PO Q4H PRN; Protocol PRN Reason: mild anxiety Last Admin: 12/02/23 20:11 Dose: 0.1 mg Docusate Sodium (Docusate Sodium 100 Mg Capsule) 100 mg PO BID [facility] Last Admin: 12/03/23 09:46 Dose: 100 mg Hydroxyzine HCl (Hydroxyzine Hcl 25 Mg Tablet) 25 mg PO Q6H PRN PRN Reason: Anxiety Lorazepam (Lorazepam 1 Mg Tablet) 1 mg PO DAILY PRN PRN Reason: moderate anxiety/Sleep Last Admin: 12/02/23 20:06 Dose: 1 mg Magnesium Hydroxide (Milk Of Magnesia 30 Ml Oral.Susp) 30 ml PO DAILY PRN PRN Reason: Constipation Olanzapine (Olanzapine 10 Mg Tablet) 20 mg PO BEDTIME [facility] Last Admin: 12/02/23 20:06 Dose: 20 mg Trazodone HCl (Trazodone Hcl 50 Mg Tablet) 50 mg PO BEDTIME MRX1 PRN PRN Reason: Insomnia Last Admin: 12/02/23 20:06 Dose: 50 mg Allergies Allergies Allergy/AdvReac Type Severity Reaction Status Date / Time carbamazepine Allergy Intermediate Vomiting Verified 11/26/23 19:34 haloperidol [From Haldol] AdvReac Intermediate Vomiting Verified 11/26/23 19:34 Assessment & Plan Assessment & Plan (1) Bipolar 1 disorder, depressed, severe: Status: Acute Code(s): F31.4 - Bipolar disorder, current episode depressed, severe, without psychotic features (2) CKD (chronic kidney disease) stage 3, GFR 30-59 ml/min: Status: Acute Code(s): N18.30 - Chronic kidney disease, stage 3 unspecified Plan pt is a 53 yo male with hx of bipolar I disorder, CKD (2/2 lithium) who presents for worsening depression and wanting to get off Zyprexa. Pt has hx of severe manic episodes but this is first bout of depression for him. About a year ago, he stopped taking his medication, got severely manic and was forensically hospitalized, placed on Zyprexa. For past 6months, he's been w/out any manic episodes but with crippling depression; zyprexa is also causing constipation and diminished libido; this past week pt started having vague SI, though no plan or intent. Pt remained on Zyprexa only until charges stemming from manic episode resolved; he now wants to transition off zyprexa but is afraid to do so in community in case vandana resurfaces. Plan: continue zyprexa 20mg qhs for now hx of doing well on depakote/lamictal/seroquel getting collateral from Dr. Vazquez (pt asked chart writer to discuss tx plan with Dr. Vazquez, pt's outpt provider) 12/02: no changes- just started vraylar 12/03: no changes Reason for continued inpatient stay Substantial Risk for: inability to function Time Spent With Patient Time: Total time managing care of this patient today ____ minutes.
[2023-12-03 18:05] VITALS: BP 141/84; PULSE 78; RESP 18; TEMP 36.7; O2SAT 97
[2023-12-03] MEDS: OLANZapine 10 MG TABLET 20 MG PO (20:22)
[2023-12-03] MEDS: cloNIDine HCL 0.1 MG TABLET PO (20:22)
[2023-12-03] MEDS: traZODone HCL 50 MG TABLET PO (20:22)
[2023-12-03] MEDS: LORazepam 1 MG TABLET PO (20:22)
[2023-12-04] MEDS: hydrOXYzine HCL 25 MG TABLET PO (01:43)
[2023-12-04] MEDS: Magnesium Hydrox/Alum Hydrox 30 ML ORAL.SUSP PO (01:44)
[2023-12-04 07:45] VITALS: BP 134/80; PULSE 69; RESP 15; TEMP 36.5; O2SAT 96
[2023-12-04] MEDS: Cariprazine HCl 1.5 MG CAPSULE PO (09:42)
[2023-12-04] MEDS: Docusate Sodium 100 MG CAPSULE PO ×2 (09:42→19:59)
--- NOTE | 2023-12-04 10:06 | P.PNPSI_ITS ---
Subjective Subjective Date of Service: 12/04/23 Reason For Visit: bipolar disorder; CKD- Stage III Interim History: met with patient; discussed with team; reviewed weekend notes Patient reports feeling a little better, mostly because there is a plan in place. He says that he agrees it is dickey to stay on the Zyprexa as it is kept him from having manic episodes. So far no side effects from Vraylar which he agrees to continue. Discussed medication management and agrees to stay at current dose for now. Again discussed other options if eventually Vraylar does not prove effective, including Latuda and possibly ECT which patient understood and will keep in mind. Patient had a good visit with his and even though woke up feeling down was able to turn the day around with behavioral activation and trying to focus on things that were outward, such as reading, attending groups etc.. 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 but will keep it in mind as a form of coping strategy for depression Mental Status Exam Mental Status Exam Narrative: Pt is alert and oriented; behavior is cooperative, friendly and calm; patient is not in distress; dressed in casual attire, scruffy mei; with eyeglasses, improved hygiene; mood is described as little better and affect congruent, still somewhat downcast but a little brighter; eye contact appropriate; Speech is normal rate, volume and prosody and not pressured; still some psychomotor retardation present, but less; thought process is organized and goal directed; Thought content is on tx; otherwise pertinent to relevant topics and without any delusional content, paranoid ideations or grandiosity; denies any SI/HI. There is no evidence of perceptual disturbance. Patients insight and judgment impaired but improving. Diagnostics Vital Signs (24Hr): Vital Signs - 24 hr 12/03/23 18:05 Temperature 98.1 F Pulse Rate 78 Respiratory Rate 18 Blood Pressure 141/84 H Pulse Oximetry 97 Oxygen Delivery Method Room Air BMI result Body Mass Index 31.0 Labs 11/26/23 22:40 11/30/23 09:01 Medications Medications Current Medications Acetaminophen (Acetaminophen 325 Mg Tablet) 650 mg PO Q6H PRN PRN Reason: Headache/Pain Mild Scale (1-3) Last Admin: 12/02/23 02:18 Dose: 650 mg Al Hydroxide/Mg Hydroxide (Magnesium Hydrox/Alum Hydrox 30 Ml Oral.Susp) 30 ml PO Q6H PRN PRN Reason: Heartburn/Nausea Last Admin: 12/04/23 01:44 Dose: 30 ml Cariprazine (Cariprazine Hcl 1.5 Mg Capsule) 1.5 mg PO DAILY [facility] Last Admin: 12/04/23 09:42 Dose: 1.5 mg Clonidine HCl (Clonidine Hcl 0.1 Mg Tablet) 0.1 mg PO Q4H PRN; Protocol PRN Reason: mild anxiety Last Admin: 12/03/23 20:22 Dose: 0.1 mg Docusate Sodium (Docusate Sodium 100 Mg Capsule) 100 mg PO BID [facility] Last Admin: 12/04/23 09:42 Dose: 100 mg Hydroxyzine HCl (Hydroxyzine Hcl 25 Mg Tablet) 25 mg PO Q6H PRN PRN Reason: Anxiety Last Admin: 12/04/23 01:43 Dose: 25 mg Lorazepam (Lorazepam 1 Mg Tablet) 1 mg PO DAILY PRN PRN Reason: moderate anxiety/Sleep Last Admin: 12/03/23 20:22 Dose: 1 mg Magnesium Hydroxide (Milk Of Magnesia 30 Ml Oral.Susp) 30 ml PO DAILY PRN PRN Reason: Constipation Olanzapine (Olanzapine 10 Mg Tablet) 20 mg PO BEDTIME [facility] Last Admin: 12/03/23 20:22 Dose: 20 mg Trazodone HCl (Trazodone Hcl 50 Mg Tablet) 50 mg PO BEDTIME MRX1 PRN PRN Reason: Insomnia Last Admin: 12/03/23 20:22 Dose: 50 mg Allergies Allergies Allergy/AdvReac Type Severity Reaction Status Date / Time carbamazepine Allergy Intermediate Vomiting Verified 11/26/23 19:34 haloperidol [From Haldol] AdvReac Intermediate Vomiting Verified 11/26/23 19:34 Assessment & Plan Assessment & Plan (1) Bipolar 1 disorder, depressed, severe: Status: Acute Code(s): F31.4 - Bipolar disorder, current episode depressed, severe, without psychotic features (2) CKD (chronic kidney disease) stage 3, GFR 30-59 ml/min: Status: Acute Code(s): N18.30 - Chronic kidney disease, stage 3 unspecified Plan pt is a 53 yo male with hx of bipolar I disorder, CKD (2/2 lithium) who presents for worsening depression and wanting to get off Zyprexa. Pt has hx of severe manic episodes but this is first bout of depression for him. About a year ago, he stopped taking his medication, got severely manic and was forensically hospitalized, placed on Zyprexa. For past 6months, he's been w/out any manic episodes but with crippling depression; zyprexa is also causing constipation and diminished libido; this past week pt started having vague SI, though no plan or intent. Pt remained on Zyprexa only until charges stemming from manic episode resolved; he now wants to transition off zyprexa but is afraid to do so in community in case vandana resurfaces. Hospital course: On admission, depressed, unkempt; agreed to start Vraylar to help with depression after outpatient provider reported Zyprexa necessary to stave off manic episodes. Patient working on behavioral activation over the weekend; feels a little better since there is a plan in place to deal with his depression. Wants to continue with Vraylar at current dose but is open to titrating. Wants help getting a therapist Plan: CV Q 15 minute checks Continue Vraylar 1.5 mg q.h.s. continue zyprexa 20mg qhs for now hx of doing well on depakote/lamictal/seroquel getting collateral from Dr. Vazquez (pt asked automobile and property underwriter to discuss tx plan with Dr. Vazquez, pt's outpt provider) Patient educated on: diagnosis and medication risk/benefits Informed Consent: understands Reason for continued inpatient stay Substantial Risk for: rapid decompensation Time Spent With Patient Time: Total time managing care of this patient today ____ minutes.
[2023-12-04 18:35] VITALS: BP 136/84; PULSE 80; RESP 16; TEMP 36.7; O2SAT 97
[2023-12-04] MEDS: LORazepam 1 MG TABLET PO (19:59)
[2023-12-04] MEDS: OLANZapine 10 MG TABLET 20 MG PO (19:59)
[2023-12-04] MEDS: traZODone HCL 50 MG TABLET PO (19:59)
[2023-12-04] MEDS: cloNIDine HCL 0.1 MG TABLET PO (19:59)
[2023-12-05 07:57] VITALS: BP 117/75; PULSE 60; RESP 16; TEMP 36.3; O2SAT 95
[2023-12-05] MEDS: Cariprazine HCl 1.5 MG CAPSULE PO (08:27)
[2023-12-05] MEDS: Docusate Sodium 100 MG CAPSULE PO ×2 (08:27→19:47)
--- NOTE | 2023-12-05 15:22 | P.PNPSI_ITS ---
Subjective Subjective Date of Service: 12/05/23 Reason For Visit: bipolar disorder; CKD- Stage III Interim History: Met with patient; discussed with team Patient reports that he is feeling a lot better than when [he] came in. He is more optimistic and finds himself more relaxed and able to enjoy things; he said he had a good visit with his and they even laughed together, something he has not done in a long time. Denies any side effects. Sleeping well, going to groups. Agrees to have discussed with team and give input on how he is doing. Mental Status Exam Mental Status Exam Narrative: Pt is alert and oriented; behavior is cooperative, friendly and calm; patient is not in distress; dressed in casual attire, scruffy mei; with eyeglasses, improved hygiene; mood is described as a lot better than when i came in and affect congruent, brighter, calm; eye contact appropriate; Speech is normal rate, volume and prosody and not pressured; no psychomotor retardation present; thought process is organized and goal directed; Thought content is on tx; otherwise pertinent to relevant topics and without any delusional content, paranoid ideations or grandiosity; denies any SI/HI. There is no evidence of perceptual disturbance. Patients insight and judgment fair. Diagnostics Vital Signs (24Hr): Vital Signs - 24 hr 12/04/23 18:35 12/05/23 07:57 Temperature 98.0 F 97.3 F Pulse Rate 80 60 Respiratory Rate 16 16 Blood Pressure 136/84 117/75 Pulse Oximetry 97 95 Oxygen Delivery Method Room Air Room Air BMI result Body Mass Index 31.0 Labs 11/26/23 22:40 11/30/23 09:01 Medications Medications Current Medications Acetaminophen (Acetaminophen 325 Mg Tablet) 650 mg PO Q6H PRN PRN Reason: Headache/Pain Mild Scale (1-3) Last Admin: 12/02/23 02:18 Dose: 650 mg Al Hydroxide/Mg Hydroxide (Magnesium Hydrox/Alum Hydrox 30 Ml Oral.Susp) 30 ml PO Q6H PRN PRN Reason: Heartburn/Nausea Last Admin: 12/04/23 01:44 Dose: 30 ml Cariprazine (Cariprazine Hcl 1.5 Mg Capsule) 1.5 mg PO DAILY [facility] Last Admin: 12/05/23 08:27 Dose: 1.5 mg Clonidine HCl (Clonidine Hcl 0.1 Mg Tablet) 0.1 mg PO Q4H PRN; Protocol PRN Reason: mild anxiety Last Admin: 12/04/23 19:59 Dose: 0.1 mg Docusate Sodium (Docusate Sodium 100 Mg Capsule) 100 mg PO BID [facility] Last Admin: 12/05/23 08:27 Dose: 100 mg Hydroxyzine HCl (Hydroxyzine Hcl 25 Mg Tablet) 25 mg PO Q6H PRN PRN Reason: Anxiety Last Admin: 12/04/23 01:43 Dose: 25 mg Lorazepam (Lorazepam 1 Mg Tablet) 1 mg PO DAILY PRN PRN Reason: moderate anxiety/Sleep Last Admin: 12/04/23 19:59 Dose: 1 mg Magnesium Hydroxide (Milk Of Magnesia 30 Ml Oral.Susp) 30 ml PO DAILY PRN PRN Reason: Constipation Olanzapine (Olanzapine 10 Mg Tablet) 20 mg PO BEDTIME [facility] Last Admin: 12/04/23 19:59 Dose: 20 mg Trazodone HCl (Trazodone Hcl 50 Mg Tablet) 50 mg PO BEDTIME MRX1 PRN PRN Reason: Insomnia Last Admin: 12/04/23 19:59 Dose: 50 mg Allergies Allergies Allergy/AdvReac Type Severity Reaction Status Date / Time carbamazepine Allergy Intermediate Vomiting Verified 11/26/23 19:34 haloperidol [From Haldol] AdvReac Intermediate Vomiting Verified 11/26/23 19:34 Assessment & Plan Assessment & Plan (1) Bipolar 1 disorder, depressed, severe: Status: Acute Code(s): F31.4 - Bipolar disorder, current episode depressed, severe, without psychotic features (2) CKD (chronic kidney disease) stage 3, GFR 30-59 ml/min: Status: Acute Code(s): N18.30 - Chronic kidney disease, stage 3 unspecified Plan pt is a 53 yo male with hx of bipolar I disorder, CKD (2/2 lithium) who presents for worsening depression and wanting to get off Zyprexa. Pt has hx of severe manic episodes but this is first bout of depression for him. About a year ago, he stopped taking his medication, got severely manic and was forensically hospitalized, placed on Zyprexa. For past 6months, he's been w/out any manic episodes but with crippling depression; zyprexa is also causing constipation and diminished libido; this past week pt started having vague SI, though no plan or intent. Pt remained on Zyprexa only until charges stemming from manic episode resolved; he now wants to transition off zyprexa but is afraid to do so in community in case vandana resurfaces. Hospital course: On admission, depressed, unkempt; agreed to start Vraylar to help with depression after outpatient provider reported Zyprexa necessary to stave off manic episodes. Patient working on behavioral activation over the weekend; feels a little better since there is a plan in place to deal with his depression. Wants to continue with Vraylar at current dose but is open to titrating. Wants help getting a therapist 2/6 patient reports he is doing better, optimistic, even laughed some with his which he has not done in a long time. Sleeping well. No side effects. Agrees to have discussed case with team; will get her input and pending her perspective on his improvement will start discharge planning. -will get EKG to monitor QTC -will get hemoglobin A1c Plan: CV Q 15 minute checks Continue Vraylar 1.5 mg q.h.s. continue zyprexa 20mg qhs for now hx of doing well on depakote/lamictal/seroquel getting collateral from Dr. Vazquez (pt asked television script writer to discuss tx plan with Dr. Vazquez, pt's outpt provider) Patient educated on: diagnosis and medication risk/benefits Informed Consent: understands Reason for continued inpatient stay Substantial Risk for: rapid decompensation Time Spent With Patient Time: Total time managing care of this patient today ____ minutes.
[2023-12-05 18:00] VITALS: BP 153/101; PULSE 83; RESP 18; TEMP 36.2; O2SAT 98
[2023-12-05] MEDS: LORazepam 1 MG TABLET PO (19:47)
[2023-12-05] MEDS: cloNIDine HCL 0.1 MG TABLET PO (19:47)
[2023-12-05] MEDS: OLANZapine 10 MG TABLET 20 MG PO (19:47)
[2023-12-05] MEDS: traZODone HCL 50 MG TABLET PO (19:48)
--- NOTE | 2023-12-06 | ECG_ITS ---
Test Reason : CK QT Blood Pressure : / mmHG Vent. Rate : 089 BPM Atrial Rate : 089 BPM P-R Int : 156 ms QRS Dur : 098 ms QT Int : 358 ms P-R-T Axes : 062 070 020 degrees QTc Int : 435 ms Normal sinus rhythm Normal ECG When compared with ECG of 26-NOV-2023 22:25, No significant changes seen prior EKG with significant artifact Referred By: Kyle Rivear Electronically Signed By:FERMIN ALBERT
[2023-12-06 08:26] VITALS: BP 109/66; PULSE 76; RESP 16; TEMP 36.2; O2SAT 94
[2023-12-06 09:14] LABS: Estimated Average Glucose 97 mg/dL
[2023-12-06] MEDS: Docusate Sodium 100 MG CAPSULE PO ×2 (09:18→19:52)
[2023-12-06] MEDS: Cariprazine HCl 1.5 MG CAPSULE PO (09:18)
--- NOTE | 2023-12-06 09:58 | P.PNPSI_ITS ---
Subjective Subjective Date of Service: 12/06/23 Reason For Visit: bipolar disorder; CKD- Stage III Interim History: met with patient; discussed with team Remains with improved mood; slept in a little late today which bothered him since it has a goal of his to make sure he gets up early and keeps himself occupied. Patient talked about recent history where he sleeps much of the day, often not getting up until 2 or 3 in the afternoon and then going back to bed soon thereafter. Patient has a plan to keep himself active when he gets home. Discussed labs; EKG pending Mental Status Exam Mental Status Exam Narrative: Pt is alert and oriented; behavior is cooperative, friendly and calm; patient is not in distress; dressed in casual attire, scruffy mei; with eyeglasses, improved hygiene; mood is described as good and affect congruent, brighter, calm; eye contact appropriate; Speech is normal rate, volume and prosody and not pressured; no psychomotor retardation present; thought process is organized and goal directed; Thought content is on tx; otherwise pertinent to relevant topics and without any delusional content, paranoid ideations or grandiosity; denies any SI/HI. There is no evidence of perceptual disturbance. Patients insight and judgment fair. Diagnostics Vital Signs (24Hr): Vital Signs - 24 hr 12/05/23 18:00 12/06/23 08:26 Temperature 97.2 F 97.1 F Pulse Rate 83 76 Respiratory Rate 18 16 Blood Pressure 153/101 H 109/66 Pulse Oximetry 98 94 Oxygen Delivery Method Room Air Room Air BMI result Body Mass Index 31.0 Labs 11/26/23 22:40 11/30/23 09:01 Labs: Laboratory Results - last 48 hr 12/06/23 08:22 Estimat Average Glucose 97 Hemoglobin A1c % 5.0 Medications Medications Current Medications Acetaminophen (Acetaminophen 325 Mg Tablet) 650 mg PO Q6H PRN PRN Reason: Headache/Pain Mild Scale (1-3) Last Admin: 12/02/23 02:18 Dose: 650 mg Al Hydroxide/Mg Hydroxide (Magnesium Hydrox/Alum Hydrox 30 Ml Oral.Susp) 30 ml PO Q6H PRN PRN Reason: Heartburn/Nausea Last Admin: 12/04/23 01:44 Dose: 30 ml Cariprazine (Cariprazine Hcl 1.5 Mg Capsule) 1.5 mg PO DAILY JULIA Last Admin: 12/06/23 09:18 Dose: 1.5 mg Clonidine HCl (Clonidine Hcl 0.1 Mg Tablet) 0.1 mg PO Q4H PRN; Protocol PRN Reason: mild anxiety Last Admin: 12/05/23 19:47 Dose: 0.1 mg Docusate Sodium (Docusate Sodium 100 Mg Capsule) 100 mg PO BID JULIA Last Admin: 12/06/23 09:18 Dose: 100 mg Hydroxyzine HCl (Hydroxyzine Hcl 25 Mg Tablet) 25 mg PO Q6H PRN PRN Reason: Anxiety Last Admin: 12/04/23 01:43 Dose: 25 mg Lorazepam (Lorazepam 1 Mg Tablet) 1 mg PO DAILY PRN PRN Reason: moderate anxiety/Sleep Last Admin: 12/05/23 19:47 Dose: 1 mg Magnesium Hydroxide (Milk Of Magnesia 30 Ml Oral.Susp) 30 ml PO DAILY PRN PRN Reason: Constipation Olanzapine (Olanzapine 10 Mg Tablet) 20 mg PO BEDTIME JULIA Last Admin: 12/05/23 19:47 Dose: 20 mg Trazodone HCl (Trazodone Hcl 50 Mg Tablet) 50 mg PO BEDTIME MRX1 PRN PRN Reason: Insomnia Last Admin: 12/05/23 19:48 Dose: 50 mg Allergies Allergies Allergy/AdvReac Type Severity Reaction Status Date / Time carbamazepine Allergy Intermediate Vomiting Verified 11/26/23 19:34 haloperidol [From Haldol] AdvReac Intermediate Vomiting Verified 11/26/23 19:34 Assessment & Plan Assessment & Plan (1) Bipolar 1 disorder, depressed, severe: Status: Acute Code(s): F31.4 - Bipolar disorder, current episode depressed, severe, without psychotic features (2) CKD (chronic kidney disease) stage 3, GFR 30-59 ml/min: Status: Acute Code(s): N18.30 - Chronic kidney disease, stage 3 unspecified Plan pt is a 53 yo male with hx of bipolar I disorder, CKD (2/2 lithium) who presents for worsening depression and wanting to get off Zyprexa. Pt has hx of severe manic episodes but this is first bout of depression for him. About a year ago, he stopped taking his medication, got severely manic and was forensically hospitalized, placed on Zyprexa. For past 6months, he's been w/out any manic episodes but with crippling depression; zyprexa is also causing constipation and diminished libido; this past week pt started having vague SI, though no plan or intent. Pt remained on Zyprexa only until charges stemming from manic episode resolved; he now wants to transition off zyprexa but is afraid to do so in community in case vandana resurfaces. Hospital course: On admission, depressed, unkempt; agreed to start Vraylar to help with depression after outpatient provider reported Zyprexa necessary to stave off manic episodes. Patient working on behavioral activation over the weekend; feels a little better since there is a plan in place to deal with his depression. Wants to continue with Vraylar at current dose but is open to titrating. Wants help getting a therapist 12/05 patient reports he is doing better, optimistic, even laughed some with his which he has not done in a long time. Sleeping well. No side effects. Agrees to have discussed case with team; will get her input and pending her perspective on his improvement will start discharge planning. 12/06 seems to remaining stable Elevated cholesterol Hemoglobin A1c WNL EKG pending Social work working on getting patient therapist which team agrees will be an important part of help him remain stable in the community Plan: CV Q 15 minute checks Continue Vraylar 1.5 mg q.h.s. continue zyprexa 20mg qhs for now hx of doing well on depakote/lamictal/seroquel getting collateral from Dr. Vazquez (pt asked teletypewriter operator to discuss tx plan with Dr. Vazquez, pt's outpt provider) Patient educated on: diagnosis, medication risk/benefits and medical condition Informed Consent: understands Reason for continued inpatient stay Substantial Risk for: stable for discharge Time Spent With Patient Time: Total time managing care of this patient today ____ minutes.
[2023-12-06 16:00] VITALS: BP 167/100; PULSE 92; RESP 16; TEMP 36.5; O2SAT 97
[2023-12-06 19:45] VITALS: BP 133/95; PULSE 95
[2023-12-06] MEDS: traZODone HCL 50 MG TABLET PO (19:50)
[2023-12-06] MEDS: LORazepam 1 MG TABLET PO (19:50)
[2023-12-06] MEDS: OLANZapine 10 MG TABLET 20 MG PO (19:50)
[2023-12-06] MEDS: cloNIDine HCL 0.1 MG TABLET PO (19:51)
--- NOTE | 2023-12-07 | ECG_ITS ---
Test Reason : CHECK QTC Blood Pressure : / mmHG Vent. Rate : 064 BPM Atrial Rate : 064 BPM P-R Int : 168 ms QRS Dur : 098 ms QT Int : 452 ms P-R-T Axes : 036 056 044 degrees QTc Int : 466 ms Normal sinus rhythm Normal ECG When compared with ECG of 06-DEC-2023 19:28, ST elevation has replaced ST depression in Lateral leads T wave inversion no longer evident in Inferior leads T wave amplitude has increased in Lateral leads Referred By: Kyle Rivera Electronically Signed By:
[2023-12-07 08:30] VITALS: BP 114/58; PULSE 74; RESP 16; TEMP 36.3; O2SAT 95
[2023-12-07] MEDS: Docusate Sodium 100 MG CAPSULE PO ×2 (08:41→20:27)
[2023-12-07] MEDS: Cariprazine HCl 1.5 MG CAPSULE PO (08:41)
[2023-12-07 10:17] VITALS: BMI 31.3
--- NOTE | 2023-12-07 12:49 | HO.PSYCHPN ---
Subjective Subjective Date of Service: 12/07/23 Reason For Visit: bipolar disorder; CKD- Stage III Interim History: met with pt; discussed with team remains improved; discussed EKG and increased risk of qtc prolongation; sleeping well and using trazodone which he'd like to continue. feels good about dc tomorrow Mental Status Exam Mental Status Exam Narrative: Pt is alert and oriented; behavior is cooperative, friendly and calm; patient is not in distress; dressed in casual attire, scruffy mei; with eyeglasses, improved hygiene; mood is described as good and affect congruent, brighter, calm; eye contact appropriate; Speech is normal rate, volume and prosody and not pressured; no psychomotor retardation present; thought process is organized and goal directed; Thought content is on tx; otherwise pertinent to relevant topics and without any delusional content, paranoid ideations or grandiosity; denies any SI/HI. There is no evidence of perceptual disturbance. Patients insight and judgment fair. Diagnostics Vital Signs (24Hr): Vital Signs - 24 hr 12/06/23 16:00 12/06/23 19:45 12/07/23 08:30 Temperature 97.7 F 97.3 F Pulse Rate 92 95 74 Respiratory Rate 16 16 Blood Pressure 167/100 H 133/95 H 114/58 L Pulse Oximetry 97 95 Oxygen Delivery Method Room Air Room Air BMI result Body Mass Index 31.3 Labs 11/26/23 22:40 11/30/23 09:01 Labs: Laboratory Results - last 48 hr 12/06/23 08:22 Estimat Average Glucose 97 Hemoglobin A1c % 5.0 Medications Medications Current Medications Acetaminophen (Acetaminophen 325 Mg Tablet) 650 mg PO Q6H PRN PRN Reason: Headache/Pain Mild Scale (1-3) Last Admin: 12/02/23 02:18 Dose: 650 mg Al Hydroxide/Mg Hydroxide (Magnesium Hydrox/Alum Hydrox 30 Ml Oral.Susp) 30 ml PO Q6H PRN PRN Reason: Heartburn/Nausea Last Admin: 12/04/23 01:44 Dose: 30 ml Cariprazine (Cariprazine Hcl 1.5 Mg Capsule) 1.5 mg PO DAILY JULIA Last Admin: 12/07/23 08:41 Dose: 1.5 mg Clonidine HCl (Clonidine Hcl 0.1 Mg Tablet) 0.1 mg PO Q4H PRN; Protocol PRN Reason: mild anxiety Last Admin: 12/06/23 19:51 Dose: 0.1 mg Docusate Sodium (Docusate Sodium 100 Mg Capsule) 100 mg PO BID JULIA Last Admin: 12/07/23 08:41 Dose: 100 mg Hydroxyzine HCl (Hydroxyzine Hcl 25 Mg Tablet) 25 mg PO Q6H PRN PRN Reason: Anxiety Last Admin: 12/04/23 01:43 Dose: 25 mg Lorazepam (Lorazepam 1 Mg Tablet) 1 mg PO DAILY PRN PRN Reason: moderate anxiety/Sleep Last Admin: 12/06/23 19:50 Dose: 1 mg Magnesium Hydroxide (Milk Of Magnesia 30 Ml Oral.Susp) 30 ml PO DAILY PRN PRN Reason: Constipation Olanzapine (Olanzapine 10 Mg Tablet) 20 mg PO BEDTIME JULIA Last Admin: 12/06/23 19:50 Dose: 20 mg Trazodone HCl (Trazodone Hcl 50 Mg Tablet) 50 mg PO BEDTIME MRX1 PRN PRN Reason: Insomnia Last Admin: 12/06/23 19:50 Dose: 50 mg Allergies Allergies Allergy/AdvReac Type Severity Reaction Status Date / Time carbamazepine Allergy Intermediate Vomiting Verified 11/26/23 19:34 haloperidol [From Haldol] AdvReac Intermediate Vomiting Verified 11/26/23 19:34 Assessment & Plan Assessment & Plan (1) Bipolar 1 disorder, depressed, severe: Status: Acute Code(s): F31.4 - Bipolar disorder, current episode depressed, severe, without psychotic features (2) CKD (chronic kidney disease) stage 3, GFR 30-59 ml/min: Status: Acute Code(s): N18.30 - Chronic kidney disease, stage 3 unspecified Plan pt is a 53 yo male with hx of bipolar I disorder, CKD (2/2 lithium) who presents for worsening depression and wanting to get off Zyprexa. Pt has hx of severe manic episodes but this is first bout of depression for him. About a year ago, he stopped taking his medication, got severely manic and was forensically hospitalized, placed on Zyprexa. For past 6months, he's been w/out any manic episodes but with crippling depression; zyprexa is also causing constipation and diminished libido; this past week pt started having vague SI, though no plan or intent. Pt remained on Zyprexa only until charges stemming from manic episode resolved; he now wants to transition off zyprexa but is afraid to do so in community in case vandana resurfaces. Hospital course: On admission, depressed, unkempt; agreed to start Vraylar to help with depression after outpatient provider reported Zyprexa necessary to stave off manic episodes. Patient working on behavioral activation over the weekend; feels a little better since there is a plan in place to deal with his depression. Wants to continue with Vraylar at current dose but is open to titrating. Wants help getting a therapist 12/05 patient reports he is doing better, optimistic, even laughed some with his which he has not done in a long time. Sleeping well. No side effects. Agrees to have discussed case with team; will get her input and pending her perspective on his improvement will start discharge planning. 12/06 seems to remaining stable Elevated cholesterol; pt will f/u with PCP Hemoglobin A1c WNL EKG pending Social work working on getting patient therapist which team agrees will be an important part of help him remain stable in the community 12/07 stable; will proceed w/ discharge qtc wnl Plan: CV Q 15 minute checks Continue Vraylar 1.5 mg q.h.s. continue zyprexa 20mg qhs for now hx of doing well on depakote/lamictal/seroquel getting collateral from Dr. Vazquez (pt asked data analyst report writer to discuss tx plan with Dr. Vazquez, pt's outpt provider) Patient educated on: diagnosis and medication risk/benefits Informed Consent: understands Reason for continued inpatient stay Substantial Risk for: stable for discharge Time Spent With Patient Time: Total time managing care of this patient today ____ minutes.
[2023-12-07 20:20] VITALS: BP 134/82; PULSE 77; TEMP 36.5
[2023-12-07] MEDS: LORazepam 1 MG TABLET PO (20:26)
[2023-12-07] MEDS: OLANZapine 10 MG TABLET 20 MG PO (20:26)
[2023-12-07] MEDS: traZODone HCL 50 MG TABLET PO (20:26)
[2023-12-07] MEDS: cloNIDine HCL 0.1 MG TABLET PO (20:27)
[2023-12-08 08:00] VITALS: BP 121/67; PULSE 71; RESP 18; TEMP 36.3; O2SAT 97
--- NOTE | 2023-12-08 08:29 | PM.PSYDC ---
DS: Providers Provider Date of Service: 12/08/23 Date of admission: 11/29/23 14:58 Date of discharge: 12/08/23 Primary care physician: Unknown Physician Attending physician on admission: Kyle Rivera Attending physician on discharge: Kyle Rivera DS: Diagnosis Discharge Diagnosis (1) Bipolar 1 disorder, depressed, severe: Status: Acute (2) CKD (chronic kidney disease) stage 3, GFR 30-59 ml/min: Status: Acute DS: Medications Discharge Medications Home Medications: Home Medications Medication Instructions Recorded Confirmed docusate sodium 100 mg capsule 100 mg PO BID 11/27/23 11/27/23 lorazepam 1 mg tablet 1 mg PO BEDTIME PRN Sleep 11/27/23 11/27/23 Previous Rx's Medication Instructions Recorded cariprazine 1.5 mg capsule 1.5 mg PO DAILY 30 days #30 caps 12/08/23 (Vraylar) clonidine HCl 0.1 mg tablet 0.1 mg PO BID 30 days #60 tabs 12/08/23 olanzapine 20 mg tablet 20 mg PO BEDTIME 30 days #30 tabs 12/08/23 trazodone 50 mg tablet 50 mg PO BEDTIME PRN Insomnia 30 12/08/23 days #30 tabs Mental Status Exam Mental Status Exam Narrative: Pt is alert and oriented; behavior is cooperative, friendly and calm; patient is not in distress; well groomed, dressed in casual attire, scruffy mei; with eyeglasses, good hygiene; mood is described as good and affect congruent, brighter, calm; eye contact appropriate; Speech is normal rate, volume and prosody and not pressured; no psychomotor retardation present; thought process is organized and goal directed; Thought content is on tx; otherwise pertinent to relevant topics and without any delusional content, paranoid ideations or grandiosity; denies any SI/HI. There is no evidence of perceptual disturbance. Patients insight and judgment fair. Data Data Completed and Pending Completed studies during hospitalization [Text1]: 12/06/23 08:22 Estimat Average Glucose 97 Hemoglobin A1c % 5.0 DS: Summary Hospital Course Hospital Course: HPI: pt is a 53 yo male with hx of bipolar I disorder, CKD (2/2 lithium) who presents for worsening depression (first depressive episode ever) and wanting to get off Zyprexa. Pt has hx of severe manic episodes but this is first bout of depression for him. About a year ago, he stopped taking his medication, got severely manic and was forensically hospitalized, placed on Zyprexa. For past 6months, he's been w/out any manic episodes but with crippling depression; zyprexa is also causing constipation and diminished libido; this past week pt started having vague SI, though no plan or intent. Pt remained on Zyprexa only until charges stemming from manic episode resolved; he now wants to transition off zyprexa but is afraid to do so in community in case vandana resurfaces. -Confirmed that for this patient only Zyprexa prevents vandana Hospital course: On admission, depressed, unkempt; agreed to start Vraylar to help with depression after outpatient provider reported Zyprexa necessary to stave off manic episodes (discussed case with Dr. Vazquez pts outpt psychiatrist for past 3 years) Patient working on behavioral activation over the weekend; feels a little better since there is a plan in place to deal with his depression. Wants to continue with Vraylar at current dose but is open to titrating. Wants help getting a therapist 2/6 patient reports he is doing better, optimistic, even laughed some with his which he has not done in a long time. Sleeping well. No side effects. Agrees to have discussed case with team; will get her input and pending her perspective on his improvement will start discharge planning. pt continued to improve on Vrylar and though depression remained, pt felt it was significantly improved. He was sleeping well (using trazodone) but was also getting himself up in the morning, attending ADL's, interacting, going to groups. Denied side-effects; qtc remained wnl; no manic symptoms. Pt's visited frequently, met with team and concurs that is doing much better and ready to come home to continue treatment w/ outpt provider. Pt asked for discharge. Pt remained stable and was not in imminent risk of harm to self or others and request for dc honored. Time spent discussing smoking cessation with patient: 3 to 10 minutes Status at Discharge Functional status at discharge: independent ambulation Overall status at discharge: patient is progressing back to baseline Time Spent with Patient Time attestation: Total time managing care of this patient today ____ minutes. Discharge Plan Discharge Anticipated Discharge Date/Time: 12/08/23 11:00 Patient Disposition: Home, Self-Care Discharge Diagnosis: Bipolar I disorder, recurrent, severe most recent episode depressed, in partial remission Referrals: [facility] [place] [place] Taina Murray [Other] - 12/13/23 11:00 am (Hospital Discharge Appointment Initial Diagnostic Evaluation for Therapy Services Appointment is in office at [facility] [place] [facility] Dr. Reynolds (psychiatry) [Other] - 1 Week (Hospital Discharge appointment with psychiatrist for medication management ) [facility] [Provider Group] - 1 Week (Call or walk in for primary care) Discharge Medications: New Vraylar 1.5 mg Capsule 1.5 mg PO DAILY 30 Days Qty: 30 0RF trazodone 50 mg Tablet 50 mg PO BEDTIME PRN (Reason: Insomnia) 30 Days Qty: 30 0RF Continued docusate sodium 100 mg Capsule 100 mg PO BID lorazepam 1 mg Tablet 1 mg PO BEDTIME PRN (Reason: Sleep) clonidine HCl 0.1 mg Tablet 0.1 mg PO BID 30 Days Qty: 60 0RF olanzapine 20 mg Tablet 20 mg PO BEDTIME 30 Days Qty: 30 0RF Discharge Orders: Discharge Order (Routine); Ordered 12/08/23 Ordered By: Kyle Rivera Diet: Regular diet Activity on Discharge: As tolerated Stand Alone Forms: Patient Portal Discharge page, Community Support Care Plan Goals: Maintain mood and safe behaviors Take medications as prescribed Practice coping skills Continue with outpatient providers and reach out to them as needed Health Concerns: Mood stability and behaviors Sobriety Plan of Treatment: Follow up with your PCP, psychiatric provider and other outpatient providers regarding above concerns Take medications as prescribed Assessment: Risk assessment at time of discharge:? Patient was interviewed prior to discharge and found to be fully oriented and without any SI or HI. Patient has improved insight and judgment and wants to continue treatment. Patient is not in imminent risk of harm to self or others and has a safety plan that includes presenting to the closest ER or calling 911 if feeling unsafe.? Patient has been observed closely by nursing and unit staff throughout admission; patient has not engaged in any behaviors that suggest dangerousness to self or others and has demonstrated appropriate behaviors and impulse control
[2023-12-08] MEDS: Cariprazine HCl 1.5 MG CAPSULE PO (08:43)
[2023-12-08] MEDS: Docusate Sodium 100 MG CAPSULE PO (08:43)
== END 2023-12-08 11:15 | disposition home or self-care (01) | DRG 885 ==
LOC: HO.ED 11-28 07:10 → HO.PM5 11-29 15:12
PROVIDERS: Clinical Nurse Specialist Psychiatric/Mental Health, Adult; Physician Assistant; Admitting Provider Psychiatry & Neurology Psychiatry; Emergency Provider Emergency Medicine Emergency Medical Services; Visit Provider Psychiatry & Neurology Psychiatry
DX: F31.4 Bipolar disorder, current episode depressed, severe, without psychotic features (principal); R45.851 Suicidal ideations; N18.30 Chronic kidney disease, stage 3 unspecified; T43.595S Adverse effect of other antipsychotics and neuroleptics, sequela; Z20.822 Contact with and (suspected) exposure to COVID-19; Z79.899 Other long term (current) drug therapy
CPT/HCPCS: 36415; 80053; 80061; 80143; 80179; 80307; 81003; 82565; 82607; 82746; 83036; 83735; 84439; 84443; 84520; 85025; 87635; 93005; 99285; S9485

== ENCOUNTER → 2023-11-26 21:53 | Outpatient (BNV) | payer MEDICARE, SELFPAY | PROVIDERS: Emergency Provider Internal Medicine; Visit Provider Internal Medicine Cardiovascular Disease | DX: I45.81 Long QT syndrome (principal) | CPT/HCPCS: 93010 ==

== ENCOUNTER 2023-11-29 14:58 | Outpatient (BNV) | payer OTHER, SELFPAY | END 2023-12-06 13:57 | PROVIDERS: Admitting Provider Psychiatry & Neurology Psychiatry; Emergency Provider Emergency Medicine Emergency Medical Services; Visit Provider Internal Medicine | DX: F31.4 Bipolar disorder, current episode depressed, severe, without psychotic features (principal) | CPT/HCPCS: 93010 ==

== ENCOUNTER → 2023-11-29 14:58 | Outpatient (BNV) | payer OTHER, SELFPAY | PROVIDERS: Admitting Provider Psychiatry & Neurology Psychiatry; Emergency Provider Emergency Medicine Emergency Medical Services; Visit Provider Psychiatry & Neurology Psychiatry | DX: F31.4 Bipolar disorder, current episode depressed, severe, without psychotic features (principal); N18.30 Chronic kidney disease, stage 3 unspecified | CPT/HCPCS: 90792; 99231; 99232; 99238 ==